=== PATIENT | female | born 1940 | race Caucasian/White ===

== ENCOUNTER 2016-08-27 22:45 | Observation (INO) | payer MEDICARE ==
[~2016-08-27] VITALS: Ht 175.3 cm; Wt 83.1 kg
[2016-08-27 23:06] LABS: HCO3 ABG 18 mmol/L (21-28); PCO2 ABG 34 mmHg (35-46); PH ABG 7.33 (7.35-7.45); PO2 ABG 71 mmHg (65-108); SAT O2 ABG 92 % (92-99)
[2016-08-27 23:08] LABS: FIO2 ABG 26
[2016-08-27] MEDS ORDERED: ONDANSETRON PF 4 MG/2 ML VIAL. ONE (23:23)
--- NOTE | 2016-08-27 23:30 | ED.ADGEN ---
Past Medical History Past Medical History: Diabetes-Type II, Hypertension, Other Additional Past Medical Histor: RA, ANEURYSM Past Surgical History: Hysterectomy, Other Additional Past Surgical Histo: "ANEURYSM SURGERY" Alcohol Use: None Drug Use: None Adult General Chief Complaint Chief Complaint: ALTERED MENTAL STATUS HPI HPI Patient is a 75 year old female who presents with simple episode at local [facility]. Reportedly, the patient has been gambling at slot machine for over 24 hours when the episode happened. Patient unresponsive with stable vital signs on EMS arrival. No seizure activity witnessed. Patient alert and oriented to person upon ED arrival with fluent, coherent and purposeful speech. Patient does not recall episode. Patient with 2diabetic with blood sugar greater than 260. Patient denies headache, neck pain, change in vision, chest pain, palpitations, shortness of breath, extremity weakness or any other medical symptoms preceding episode. No orolingual abrasion or urinary incontinence. Denies history of seizure disorder. History is limited by the patient's memory impairment. Review of Systems Review of Systems Review symptoms as per history of present illness. All other review of symptoms negative. Allergies Allergies Allergies Coded Allergies Type Severity Reaction Last Updated Verified cephalexin Allergy Unknown 08/27/16 Yes codeine Allergy Unknown 08/27/16 Yes Physical Exam Physical Exam Constitutional: Well developed, well nourished, no acute distress. On O2 by nasal cannula HENT: Normocephalic, atraumatic, bilateral external ears normal, oropharynx moist, no oral exudates, nose normal. Eyes: PERRL. Neck: Normal range of motion, supple. Cardiovascular:Heart rate regular rhythm. Lungs & Thorax: Bilateral breath sounds clear to auscultation. Abdomen: Bowel sounds normal, soft, no tenderness. Skin: Warm, dry. Back: No tenderness, no CVA tenderness. Neurologic: Alert and oriented X 1, normal motor function, normal sensory function, no focal deficits noted. Psychologic: Affect, flat. Current Patient Data Vital Signs Vital Signs Date Time Temp Pulse Resp B/P (MAP) Pulse Ox O2 Delivery O2 Flow Rate FiO2 08/27/16 23:04 98.0 114 20 196/96 (129) 93 Room Air 98.0 Lab Values Laboratory Tests Test 08/27/16 22:50 O2 Saturation 92 % (92-99) Arterial Blood pH 7.33 (7.35-7.45) L Arterial Blood pCO2 at Patient Temp 34 mmHg (35-46) L Arterial Blood pO2 at Patient Temp 71 mmHg (65-108) Arterial Blood HCO3 18 mmol/L (21-28) L Arterial Blood Base Excess -7 mmol/L (-3-3) L FiO2 26 EKG EKG [EKG: Sinus tach, rate 117, abnormal ST T-wave contour. No acute ST elevation. QTC 465.] Radiology/Procedures Radiology/Procedures [CT head: No acute intracranial process per radiology report Chest x-ray: No evidence for infiltrate ] Course & Med Decision Making Course & Med Decision Making Pertinent Labs and Imaging studies reviewed. (See chart for details) [Patient with return to baseline mental status shortly after ED arrival. Ate O 3 although does not recall episode. Patient with episode of vomiting shortly after ED arrival.] Dragon Disclaimer Dragon Disclaimer This electronic medical record was generated, in whole or in part, using a voice recognition dictation system. MARINA LONG DO Aug 27, 2016 23:30
[2016-08-27 23:38] LABS: BASO % 1 % (0-3); EOS % 2 % (0-3); HEMATOCRIT 40.4 % (36.0-47.0); HEMOGLOBIN 13.1 g/dL (12.0-15.5); LYMPH # 1.6 x10^3/uL (1.0-4.8); LYMPH % 19 % (24-48); MEAN CORPUSCULAR HEMOGLOBIN 32 pg (25-35); MEAN CORPUSCULAR HGB CONC 32 g/dL (31-37); MEAN CORPUSCULAR VOLUME 98 fL (79-100); MONO % 10 % (0-9); NEUT % 69 % (31-73); PLATELET COUNT 201 x10^3/uL (140-400); RED BLOOD COUNT 4.13 x10^6/uL (3.50-5.40); RED CELL DISTRIBUTION WIDTH 14.3 % (11.5-14.5); WHITE BLOOD COUNT 8.7 x10^3/uL (4.0-11.0)
--- NOTE | 2016-08-27 23:42 | RAD ---
CT head without intravenous contrast History: Witnessed seizure at the [facility]. Unresponsive at EMS arrival. Comparison: None. Technique: Axial images are obtained of the head from the skull base through the vertex without IV contrast. Exposure: One or more of the following individualized dose reduction techniques were utilized for this examination: 1. Automated exposure control 2. Adjustment of the mA and/or kV according to patient size 3. Use of iterative reconstruction technique Findings: The ventricles are appropriate in size, shape, and location for the patient's age. No obvious intracranial mass, mass-effect, midline shift, hemorrhage or obvious acute infarction is identified. Basilar cisterns are patent. Patchy bilateral white matter low-attenuation is seen which also extends into the superior aspect left lentiform nucleus. Bone windows demonstrate no acute calvarial abnormality. The visualized paranasal sinuses appear clear. Impression: 1. No acute intracranial process. Please note that CT can be relatively insensitive to acute ischemic infarction for up to 24 hours after symptom onset. 2. Nonspecific white matter changes, probably from chronic microvascular ischemic disease. Electronically signed by: Parag Rollins MD (08/27/2016 11:37 PM)
[2016-08-27 23:52] LABS: CALCIUM 8.9 mg/dL (8.5-10.1); CREATININE 1.2 mg/dL (0.6-1.0); GFR 43.9; POTASSIUM 3.6 mmol/L (3.5-5.1)
[2016-08-27] MEDS ORDERED: ONDANSETRON PF 4 MG/2 ML VIAL. IV ONE (23:55)
[2016-08-27 23:58] LABS: ALBUMIN 3.5 g/dL (3.4-5.0); ALBUMIN/GLOBULIN RATIO 0.9 (1.0-1.7); TOTAL BILIRUBIN 0.2 mg/dL (0.2-1.0); TOTAL PROTEIN 7.6 g/dL (6.4-8.2)
[2016-08-28 00:57] LABS: BILIRUBIN,URINE NEGATIVE (NEG); GLUCOSE,URINE >=1000 mg/dL (NEG); NITRITE,URINE NEGATIVE (NEG); PROTEIN,URINE >=300 mg/dL (NEG-TRACE); UROBILINOGEN,URINE 0.2 mg/dL (0.2 mg/dL)
[2016-08-28 01:09] LABS: BACTERIA,URINE MANY /HPF (0-FEW); RBC,URINE >40 /HPF (0-2); SQUAMOUS EPITHELIAL CELL,UR FEW /LPF; WBC,URINE TNTC /HPF (0-4)
[2016-08-28 01:14] LABS: BARBITURATES NEG (NEG); BENZODIAZEPINES NEG (NEG); CANNABINOIDS NEG (NEG); COCAINE NEG (NEG); METHADONE NEG (NEG); OPIATES NEG (NEG); PHENCYCLIDINE NEG (NEG)
--- NOTE | 2016-08-28 01:34 | ACF ---
Admission Forms Criteria SYNCOPE Clinical Indications for Admission to Inpatient Care ( Place 'X' for any and all applicable criteria): Admission is indicated for syncope and ANY ONE of the following (1)(2)(3)(4)(5) (6)(7) : [X]I. Inpatient admission required rather than observation care (Also use Syncope: Observation Care Criteria as appropriate) because of ANY ONE of the following: [ ]a) Hemodynamic instability that is severe or persistent [ ]b) Cardiac arrhythmias of immediate concern identified or strongly suspected (eg, needs electrophysiologic study) [ ]c) Acute coronary syndrome identified (Also use Myocardial Infarction or Angina Criteria form ) [ ]d) Structural cardiac disorder (eg, aortic stenosis) suspected as cause that requires immediate correction [ ]e) Respiratory symptoms (eg, dyspnea, tachypnea) that are severe or persistent [X]f) Neurologic signs or symptoms that are severe or persistent ( eg, stroke, seizures, altered mental status) [ ]g) Severe electrolyte abnormalities requiring inpatient care [ ]h) Supplemental oxygen or respiratory treatment for over 24 hrs that are performable only in acute inpatient setting [ ]i) IV fluid to replace significant ongoing (eg, for over 24 hrs ) losses (>3 L/m2 per day) [ ]j) Continuous intravenous infusion of anticoagulation, platelet inhibitor, vasoactive, or antiarrhythmic medication(15)(16) [ ]k) Pulmonary artery catheter monitoring [ ]l) Temporary pacemaker placement(17) [ ]m) Emergent cardioversion(18) [ ]n) Other conditions, treatment or monitoring requiring inpatient admission [ ]II. Suspicion of imminently dangerous cause (eg, rare causes like pericardial tamponade, pulmonary embolism) [ ]III. Syncope causing severe injury requiring hospitalization Extended stay beyond goal length of stay may be needed for(28) [ ]a) Dangerous arrhythmia(15)(23)(27)(29) [ ]b) Myocardial ischemia [ ]c) Seizure disorder [ ]d) Syncope-related injuries The original [employer] content created by [employer] has been revised. The portions of the content which have been revised are identified through the use of italic text or in bold, and [employer] has neither reviewed nor approved the modified material. All other unmodified content is copyright [employer]. Please see references footnoted in the original [facility] edition 2016 Admission Criteria Met?: Yes KAMILA MCDERMOTT Aug 28, 2016 01:34
[2016-08-28] MEDS ORDERED: MORPHINE SULFATE 2 MG/ML DISP.SYRIN. IV PRN ×2 (02:45→10:45)
[2016-08-28] MEDS ORDERED: ONDANSETRON PF 4 MG/2 ML VIAL. IV PRN ×2 (02:45→10:45)
[2016-08-28 03:50] VITALS: BP 180/89
[2016-08-28 07:00] VITALS: BP 137/59
--- NOTE | 2016-08-28 08:23 | RAD ---
Portable chest, 08/27/2016: History: Shortness of breath Comparison is made to a study from 01/22/2008. The patient is rotated to the right. The heart size and pulmonary vascularity are normal. There is calcific plaquing of the aorta. No pulmonary consolidation is seen. There is no evidence of pleural fluid or pneumothorax. The bony structures are demineralized. IMPRESSION: No acute cardiopulmonary abnormality is detected.
--- NOTE | 2016-08-28 08:41 | EKG ---
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
[2016-08-28] MEDS ORDERED: METF-620 PO (10:44)
[2016-08-28] MEDS ORDERED: AMLO5TAB2 PO (10:44)
[2016-08-28] MEDS ORDERED: HYDR25TA9 PO (10:44)
[2016-08-28] MEDS ORDERED: LISI40TA PO (10:44)
[2016-08-28] MEDS ORDERED: FLUO40CA2 PO (10:44)
[2016-08-28] MEDS ORDERED: FOLI1TAB16 PO (10:44)
[2016-08-28] MEDS ORDERED: OMEP40CA5 PO (10:44)
[2016-08-28] MEDS ORDERED: INSU100I13 SQ (10:44)
[2016-08-28] MEDS ORDERED: ALPR0.5T PO (10:44)
[2016-08-28] MEDS ORDERED: SIMV40TA3 PO (10:44)
[2016-08-28] MEDS ORDERED: VENL150C PO (10:44)
[2016-08-28] MEDS ORDERED: CLON0.5T PO (10:44)
[2016-08-28] MEDS ORDERED: DEXTROSE 50% 25 GM / 50ML DISP.SYRIN. IV PRN (10:45)
[2016-08-28] MEDS ORDERED: hydrALAZINE 20 MG/ML VIAL. IVP PRN (10:45)
[2016-08-28] MEDS ORDERED: DOCUSATE SODIUM 100 MG CAPSULE. PO PRN (10:45)
[2016-08-28] MEDS ORDERED: ACETAMINOPHEN 325 MG TABLET. PO PRN (10:45)
[2016-08-28] MEDS ORDERED: traMADol 50 MG TABLET PO PRN (10:45)
[2016-08-28 11:00] VITALS: BP 148/62
[2016-08-28] MEDS: LISINOPRIL 40 MG TABLET. PO SCH (12:06)
[2016-08-28] MEDS: PANTOPRAZOLE 40 MG TABLET.DR. PO SCH (12:06)
[2016-08-28] MEDS: FLUoxetine HCL 20 MG CAPSULE PO SCH (12:06)
[2016-08-28] MEDS: ALPRAZolam 0.5 MG TABLET PO PRN ×2 (12:07→21:50)
[2016-08-28] MEDS: amLODIPine BESYLATE 5 MG TABLET PO SCH (12:07)
[2016-08-28] MEDS: FOLIC ACID 1 MG TABLET. PO SCH (12:07)
[2016-08-28] MEDS: INSULIN ASPART 300 UNITS/3 ML INSULN.PEN SQ SCH ×2 (12:09→16:56)
--- NOTE | 2016-08-28 12:14 | RAD ---
Carotid ultrasound, 08/28/2016: History: Syncope Duplex evaluation of the carotid arteries in the neck was performed including grayscale, color-flow and spectral Doppler analysis. There are moderate scattered atherosclerotic plaques in both common carotid arteries and at the carotid bifurcations, right greater than left. The peak systolic velocity in the proximal right internal carotid artery is 142 cm/s with an end-diastolic velocity of 22 cm/s. The internal carotid to common carotid artery ratio is 2.2. The peak systolic velocity and this ratio suggests narrowing in the 50-70% diameter range, while the end-diastolic velocity measurement suggests a lesser degree of narrowing. On the left, the peak systolic velocity in the internal carotid artery is 121 cm/s. The end-diastolic velocity is 23 cm/s. The internal carotid to common carotid artery ratio is 1.2. These Doppler findings suggest narrowing in the 0-50% diameter range. Antegrade flow is present in both vertebral arteries in the neck. IMPRESSION: Moderate atherosclerotic plaquing at the carotid bifurcations, right greater than left with underlying luminal narrowing of the proximal right internal carotid artery in the 50-70% diameter range and narrowing of the left internal carotid artery in the 0-50% diameter range. Note: Stenosis calculations for CT, MRA and conventional angiography are based upon determination of the distal ICA diameter in accordance with the NASCET methodology. Stenosis calculations for Doppler studies are derived from validated velocity criteria which are known to correlate with NASCET methodology of determining stenosis.
--- NOTE | 2016-08-28 12:53 | PDOC1 ---
History and Physical Date of Admission Date of Admission 08/28/16 Identification/Chief Complaint Chief Complaint syncope, unresponsive Problems: Source Source: Chart review, Patient History of Present Illness History of Present Illness HPI HPI Patient is a 75 year old female who presents with syncope episode at local [facility]. Pt lives alone, said she was in casino sitting playing gambling, with headache x3-4 hours, denies dehydration, then she woke up in the hosp. She navin palpitation, dizzy, chest pain. sHE Dose not remember what really happened. She feels good now too. As per ERP, pt was at slot machine for >24hours, unresponsive with stable vital signs on EMS. No seizure activity witnessed. Patient alert and oriented to person upon ED arrival with fluent, coherent and purposeful speech. Patient with 2diabetic with blood sugar greater than 260. never had seizure or syncope before. Denies fever, chills, sob, chest pain, cough, N/V. She did vomit in ER. denies UTI symptom. Past Medical History Past Medical History Diabetes-Type II, Hypertension, Other Additional Past Medical Histor: RA, ANEURYSM Past Surgical History Past Surgical History Hysterectomy, Other Additional Past Surgical Histo: "ANEURYSM SURGERY" ? Family History Family History: Hypertension Social History Smoke: No ALCOHOL: none Drugs: None Current Problem List Problem List Problems Medical Problems: (1) Hyperglycemia Status: Acute Current Medications Current Medications Current Medications Medications (Trade) Dose Ordered Sig/Aman Start Time Stop Time Status Last Admin Dose Admin Acetaminophen (Tylenol) 650 mg PRN Q6HRS PRN 08/28/16 10:45 Alprazolam (Xanax) 0.5 mg PRN TID PRN 08/28/16 10:45 08/28/16 12:07 0.5 MG Amlodipine Besylate (Norvasc) 5 mg DAILY 08/28/16 11:00 08/28/16 12:07 5 MG Dextrose (Dextrose 50%-Water Syringe) 12.5 gm PRN Q15MIN PRN 08/28/16 10:45 Docusate Sodium (Colace) 100 mg PRN DAILY PRN 08/28/16 10:45 Fluoxetine HCl (PROzac) 40 mg DAILY 08/28/16 11:00 08/28/16 12:06 40 MG Folic Acid (Folic Acid) 2 mg DAILY 08/28/16 11:00 08/28/16 12:07 2 MG Hydralazine HCl (Apresoline) 10 mg PRN Q4HRS PRN 08/28/16 10:45 Insulin Aspart (NovoLOG) 0-9 UNITS TIDWMEALS 08/28/16 12:00 08/28/16 12:09 4 UNITS Insulin Detemir (Levemir) 65 units QHS 08/28/16 21:00 Levofloxacin/ Dextrose 150 ml @ 100 mls/hr 1X ONCE 08/28/16 01:30 08/28/16 02:59 DC 08/28/16 01:48 100 MLS/HR Lisinopril (Prinivil) 40 mg DAILY 08/28/16 11:00 08/28/16 12:06 40 MG Metformin HCl (Glucophage) 1,000 mg BIDWMEALS 08/28/16 17:00 Morphine Sulfate 2 mg PRN Q2HR PRN 08/28/16 10:45 08/28/16 10:45 DC Ondansetron HCl (Zofran) 4 mg PRN Q6HRS PRN 08/28/16 10:45 Pantoprazole Sodium (Protonix) 40 mg DAILYAC 08/28/16 11:00 08/28/16 12:06 40 MG Simvastatin (Zocor) 40 mg QHS 08/28/16 21:00 Tramadol HCl (Ultram) 50 mg PRN Q6HRS PRN 08/28/16 10:45 Venlafaxine HCl (Effexor) 50 mg TID 08/28/16 14:00 Allergies Allergies Allergies Coded Allergies Type Severity Reaction Last Updated Verified cephalexin Allergy Unknown 08/27/16 Yes codeine Allergy Unknown 08/27/16 Yes ROS Review of System CONSTITUTIONAL: No fever or chills EYES: No recent changes SKIN: No rash or itching CARDIOVASCULAR: No chest pain, syncope, palpitations, or edema RESPIRATORY: No SOB or cough GASTROINTESTINAL: No nausea, vomiting or abdominal pain NEUROLOGICAL: No headaches or weakness ENDOCRINE: No cold or heat intolerance GENITOURINARY: No urgency or frequency of urination MUSCULOSKELETAL: No back pain or joint pain LYMPHATICS: No enlarged lymph nodes PSYCHIATRIC: No anxiety or depression Physical Exam Physical Exam GEN.: No apparent distress. Alert and oriented. HEENT: Head is normocephalic, atraumatic NECK: Supple. LUNGS: Clear to auscultation. HEART: RRR, S1, S2 present. Peripheral pulses intact ABDOMEN: Soft, nontender. Positive bowel sounds. EXTREMITIES: Without any cyanosis. NEUROLOGIC: Normal speech, normal tone PSYCHIATRIC: Normal affect, normal mood. SKIN: No ulcerations Vitals Vitals Vital Signs Date Time Temp Pulse Resp B/P (MAP) Pulse Ox O2 Delivery O2 Flow Rate FiO2 08/28/16 12:07 99 165/81 08/28/16 11:00 97.9 20 97 Nasal Cannula 2.0 97.9 Labs Labs Laboratory Tests Test 08/27/16 22:50 08/27/16 23:25 08/27/16 23:26 08/27/16 23:31 O2 Saturation 92 % (92-99) Arterial Blood pH 7.33 (7.35-7.45) Arterial Blood pCO2 at Patient Temp 34 mmHg (35-46) Arterial Blood pO2 at Patient Temp 71 mmHg (65-108) Arterial Blood HCO3 18 mmol/L (21-28) Arterial Blood Base Excess -7 mmol/L (-3-3) FiO2 26 White Blood Count 8.7 x10^3/uL (4.0-11.0) Red Blood Count 4.13 x10^6/uL (3.50-5.40) Hemoglobin 13.1 g/dL (12.0-15.5) Hematocrit 40.4 % (36.0-47.0) Mean Corpuscular Volume 98 fL (79-100) Mean Corpuscular Hemoglobin 32 pg (25-35) Mean Corpuscular Hemoglobin Concent 32 g/dL (31-37) Red Cell Distribution Width 14.3 % (11.5-14.5) Platelet Count 201 x10^3/uL (140-400) Neutrophils (%) (Auto) 69 % (31-73) Lymphocytes (%) (Auto) 19 % (24-48) Monocytes (%) (Auto) 10 % (0-9) Eosinophils (%) (Auto) 2 % (0-3) Basophils (%) (Auto) 1 % (0-3) Neutrophils # (Auto) 6.0 x10^3uL (1.8-7.7) Lymphocytes # (Auto) 1.6 x10^3/uL (1.0-4.8) Monocytes # (Auto) 0.9 x10^3/uL (0.0-1.1) Eosinophils # (Auto) 0.2 x10^3/uL (0.0-0.7) Basophils # (Auto) 0.0 x10^3/uL (0.0-0.2) Sodium Level 143 mmol/L (136-145) Potassium Level 3.6 mmol/L (3.5-5.1) Chloride Level 104 mmol/L (98-107) Carbon Dioxide Level 22 mmol/L (21-32) Anion Gap 17 (6-14) Blood Urea Nitrogen 19 mg/dL (7-20) Creatinine 1.2 mg/dL (0.6-1.0) Estimated GFR (Cockcroft-Gault) 43.9 BUN/Creatinine Ratio 16 (6-20) Glucose Level 281 mg/dL (70-99) Calcium Level 8.9 mg/dL (8.5-10.1) Total Bilirubin 0.2 mg/dL (0.2-1.0) Aspartate Amino Transf (AST/SGOT) 22 U/L (15-37) Alanine Aminotransferase (ALT/SGPT) 28 U/L (14-59) Alkaline Phosphatase 106 U/L (46-116) Total Protein 7.6 g/dL (6.4-8.2) Albumin 3.5 g/dL (3.4-5.0) Albumin/Globulin Ratio 0.9 (1.0-1.7) Ethyl Alcohol Level < 10 mg/dL (0-10) Glucose (Fingerstick) 256 mg/dL (70-99) Bedside Troponin I 0.04 ng/ml (<0.08) Test 08/28/16 00:40 08/28/16 07:10 08/28/16 09:55 Urine Collection Type U cath Urine Color Yellow Urine Clarity Cloudy Urine pH 6.0 Urine Specific Foss >=1.030 Urine Protein >=300 mg/dL (NEG-TRACE) Urine Glucose (UA) >=1000 mg/dL (NEG) Urine Ketones (Stick) Negative mg/dL (NEG) Urine Blood Moderate (NEG) Urine Nitrite Negative (NEG) Urine Bilirubin Negative (NEG) Urine Urobilinogen Dipstick 0.2 mg/dL (0.2 mg/dL) Urine Leukocyte Esterase Moderate (NEG) Urine RBC >40 /HPF (0-2) Urine WBC Tntc /HPF (0-4) Urine Squamous Epithelial Cells Few /LPF Urine Bacteria Many /HPF (0-FEW) Urine Hyaline Casts Few /HPF Urine Opiates Screen Neg (NEG) Urine Methadone Screen Neg (NEG) Urine Barbiturates Neg (NEG) Urine Phencyclidine Screen Neg (NEG) Urine Amphetamine/Methamphetamine Neg (NEG) Urine Benzodiazepines Screen Neg (NEG) Urine Cocaine Screen Neg (NEG) Urine Cannabinoids Screen Neg (NEG) Urine Ethyl Alcohol Neg (NEG) Glucose (Fingerstick) 239 mg/dL (70-99) 156 mg/dL (70-99) Laboratory Tests Test 08/27/16 22:50 08/27/16 23:25 08/27/16 23:26 08/27/16 23:31 O2 Saturation 92 % (92-99) Arterial Blood pH 7.33 (7.35-7.45) Arterial Blood pCO2 at Patient Temp 34 mmHg (35-46) Arterial Blood pO2 at Patient Temp 71 mmHg (65-108) Arterial Blood HCO3 18 mmol/L (21-28) Arterial Blood Base Excess -7 mmol/L (-3-3) FiO2 26 White Blood Count 8.7 x10^3/uL (4.0-11.0) Red Blood Count 4.13 x10^6/uL (3.50-5.40) Hemoglobin 13.1 g/dL (12.0-15.5) Hematocrit 40.4 % (36.0-47.0) Mean Corpuscular Volume 98 fL (79-100) Mean Corpuscular Hemoglobin 32 pg (25-35) Mean Corpuscular Hemoglobin Concent 32 g/dL (31-37) Red Cell Distribution Width 14.3 % (11.5-14.5) Platelet Count 201 x10^3/uL (140-400) Neutrophils (%) (Auto) 69 % (31-73) Lymphocytes (%) (Auto) 19 % (24-48) Monocytes (%) (Auto) 10 % (0-9) Eosinophils (%) (Auto) 2 % (0-3) Basophils (%) (Auto) 1 % (0-3) Neutrophils # (Auto) 6.0 x10^3uL (1.8-7.7) Lymphocytes # (Auto) 1.6 x10^3/uL (1.0-4.8) Monocytes # (Auto) 0.9 x10^3/uL (0.0-1.1) Eosinophils # (Auto) 0.2 x10^3/uL (0.0-0.7) Basophils # (Auto) 0.0 x10^3/uL (0.0-0.2) Sodium Level 143 mmol/L (136-145) Potassium Level 3.6 mmol/L (3.5-5.1) Chloride Level 104 mmol/L (98-107) Carbon Dioxide Level 22 mmol/L (21-32) Anion Gap 17 (6-14) Blood Urea Nitrogen 19 mg/dL (7-20) Creatinine 1.2 mg/dL (0.6-1.0) Estimated GFR (Cockcroft-Gault) 43.9 BUN/Creatinine Ratio 16 (6-20) Glucose Level 281 mg/dL (70-99) Calcium Level 8.9 mg/dL (8.5-10.1) Total Bilirubin 0.2 mg/dL (0.2-1.0) Aspartate Amino Transf (AST/SGOT) 22 U/L (15-37) Alanine Aminotransferase (ALT/SGPT) 28 U/L (14-59) Alkaline Phosphatase 106 U/L (46-116) Total Protein 7.6 g/dL (6.4-8.2) Albumin 3.5 g/dL (3.4-5.0) Albumin/Globulin Ratio 0.9 (1.0-1.7) Ethyl Alcohol Level < 10 mg/dL (0-10) Glucose (Fingerstick) 256 mg/dL (70-99) Bedside Troponin I 0.04 ng/ml (<0.08) Test 08/28/16 00:40 08/28/16 07:10 08/28/16 09:55 Urine Collection Type U cath Urine Color Yellow Urine Clarity Cloudy Urine pH 6.0 Urine Specific Foss >=1.030 Urine Protein >=300 mg/dL (NEG-TRACE) Urine Glucose (UA) >=1000 mg/dL (NEG) Urine Ketones (Stick) Negative mg/dL (NEG) Urine Blood Moderate (NEG) Urine Nitrite Negative (NEG) Urine Bilirubin Negative (NEG) Urine Urobilinogen Dipstick 0.2 mg/dL (0.2 mg/dL) Urine Leukocyte Esterase Moderate (NEG) Urine RBC >40 /HPF (0-2) Urine WBC Tntc /HPF (0-4) Urine Squamous Epithelial Cells Few /LPF Urine Bacteria Many /HPF (0-FEW) Urine Hyaline Casts Few /HPF Urine Opiates Screen Neg (NEG) Urine Methadone Screen Neg (NEG) Urine Barbiturates Neg (NEG) Urine Phencyclidine Screen Neg (NEG) Urine Amphetamine/Methamphetamine Neg (NEG) Urine Benzodiazepines Screen Neg (NEG) Urine Cocaine Screen Neg (NEG) Urine Cannabinoids Screen Neg (NEG) Urine Ethyl Alcohol Neg (NEG) Glucose (Fingerstick) 239 mg/dL (70-99) 156 mg/dL (70-99) VTE Prophylaxis Ordered VTE Prophylaxis Devices: Yes VTE Pharmacological Prophylaxi: Yes Assessment/Plan Assessment/Plan 1. syncope, vasovagal? 2. htn urgency 3. dm2 on lantus 65u qhs 4. CKD 3 plan: neuro consult carotid US check orthostatic hypotension cont home meds, levemir 60u qhs, ssi, hold hctz labs tmr dvt ppx PTOT ARISTEO PACHECO MD Aug 28, 2016 12:53
[2016-08-28] MEDS: VENLAFAXINE 50 MG TABLET. PO SCH ×2 (13:03→21:49)
--- NOTE | 2016-08-28 14:09 | PDOC2 ---
NEUROLOGY CONSULT Date of Admission Date of Admission DATE: 08/28/16 TIME: 14:01 Reason for Consult Reason for Consult: Syncope Referring Physician Referring Physician: Dr. Torre Source Source: Chart review, Patient History of Present Illness History of Present Illness The patient is a 75-year-old right-handed female who spent nearly 24 hours at a slot [place] a casino. She took a few breaks for eating and fluid, but no sleep. She fell out of her chair. She does not know if she hit her head. There are no details of any type of convulsive activity, tongue biting, or incontinence, but she denies such. There is no prior history of syncope, stroke , or seizure. She does have a headache now. She denies any other problems. Past Medical History Cardiovascular: HTN Pulmonary: Bronchitis, Pneumonia GI: GERD, Other (Murray's esophagus) Rheumatologic: Rheumatoid arthritis Renal/: UTI Endocrine: Diabetes Past Surgical History Past Surgical History: Appendectomy, Cholecystectomy, Cataract Removal, Tonsillectomy, Hysterectomy, Other (joint surgeries) Family History Family History: Cancer Social History Social History Single, quit smoking 5 years ago, no alcohol, retired Current Medications Current Medications Current Medications Ondansetron HCl (Zofran) 4 mg STK-MED ONCE .ROUTE ; Start 08/27/16 at 23:23; Stop 08/27/16 at 23:24; Status DC Ondansetron HCl (Zofran) 4 mg 1X ONCE IV Last administered on 08/27/16t 23:26 ; Start 08/27/16 at 23:55; Stop 08/27/16 at 23:57; Status DC Levofloxacin/ Dextrose 150 ml @ 100 mls/hr 1X ONCE IV Last administered on t 01:48; Start 08/28/16 at 01:30; Stop 08/28/16 at 02:59; Status DC Ondansetron HCl (Zofran) 4 mg PRN Q8HRS PRN IV NAUSEA/VOMITING; Start 08/28/16 at 02:45; Stop 08/29/16 at 02:44 Morphine Sulfate 2 mg PRN Q2HR PRN IV PAIN; Start 08/28/16 at 02:45; Stop at 02:44 Acetaminophen (Tylenol) 650 mg PRN Q6HRS PRN PO FEVER; Start 08/28/16 at 10:45 Ondansetron HCl (Zofran) 4 mg PRN Q6HRS PRN IV NAUSEA/VOMITING 1st choice; Start 08/28/16 at 10:45 Morphine Sulfate 2 mg PRN Q2HR PRN IV PAIN; Start 08/28/16 at 10:45; Stop at 10:45; Status DC Tramadol HCl (Ultram) 50 mg PRN Q6HRS PRN PO PAIN MILD; Start 08/28/16 at 10:45 Hydralazine HCl (Apresoline) 10 mg PRN Q4HRS PRN IVP ELEVATED BP, SEE COMMENTS ; Start 08/28/16 at 10:45 Docusate Sodium (Colace) 100 mg PRN DAILY PRN PO CONSTIPATION; Start 08/28/16 at 10:45 Insulin Aspart (NovoLOG) 0-9 UNITS TIDWMEALS SQ Last administered on 08/28/16 12:09; Start 08/28/16 at 12:00 Dextrose (Dextrose 50%-Water Syringe) 12.5 gm PRN Q15MIN PRN IV SEE COMMENTS; Start 08/28/16 at 10:45 Alprazolam (Xanax) 0.5 mg PRN TID PRN PO ANXIETY / AGITATION Last administered on 08/28/16 12:07; Start 08/28/16 at 10:45 Amlodipine Besylate (Norvasc) 5 mg DAILY PO Last administered on 08/28/16 12:07 ; Start 08/28/16 at 11:00 Folic Acid (Folic Acid) 2 mg DAILY PO Last administered on 08/28/16 12:07; Start 08/28/16 at 11:00 Lisinopril (Prinivil) 40 mg DAILY PO Last administered on 08/28/16 12:06; Start 08/28/16 at 11:00 Metformin HCl (Glucophage) 1,000 mg BIDWMEALS PO ; Start 08/28/16 at 17:00 Simvastatin (Zocor) 40 mg QHS PO ; Start 08/28/16 at 21:00 Fluoxetine HCl (PROzac) 40 mg DAILY PO Last administered on 08/28/16 12:06; Start 08/28/16 at 11:00 Insulin Detemir (Levemir) 65 units QHS SQ ; Start 08/28/16 at 21:00; Stop at 21:00; Status DC Pantoprazole Sodium (Protonix) 40 mg DAILYAC PO Last administered on 08/28/16t 12:06; Start 08/28/16 at 11:00 Venlafaxine HCl (Effexor) 50 mg TID PO ; Start 08/28/16 at 14:00 Insulin Detemir (Levemir) 60 units QHS SQ ; Start 08/28/16 at 21:00 Enoxaparin Sodium (Lovenox 40mg Syringe) 40 mg DAILY16 SQ ; Start 08/28/16 at 16: 00 Active Scripts Active Reported Folic Acid 1 Mg Tablet 2 Tab PO DAILY Lisinopril 40 Mg Tablet 1 Tab PO DAILY Amlodipine Besylate 5 Mg Tablet 5 Mg PO DAILY Hydrochlorothiazide Tablet (Hydrochlorothiazide) 25 Mg Tablet 1 Tab PO DAILY Simvastatin 40 Mg Tablet 1 Tab PO QHS Omeprazole 40 Mg Capsule.dr 1 Cap PO DAILY Metformin Hcl 1,000 Mg Tablet 1,000 Mg PO BIDWMEALS Xanax (Alprazolam) 0.5 Mg Tablet 1 Tab PO PRN TID PRN Klonopin (Clonazepam) 0.5 Mg Tablet 1 Tab PO QHS Fluoxetine Hcl 40 Mg Capsule 1 Cap PO DAILY Lantus Solostar (Insulin Glargine,Hum.rec.anlog) 100 Unit/1 Ml Insuln.pen 65 Unit SQ QHS Effexor Xr (Venlafaxine Hcl) 150 Mg Cap.er.24h 1 Cap PO DAILY Allergies Allergies: Coded Allergies: cephalexin (Verified Allergy, Unknown, 08/27/16) codeine (Verified Allergy, Unknown, 08/27/16) ROS Review of System Patient denies fevers, chills, weight loss, dyspnea, angina, abdominal pain, change in bowels, or dysuria. 14 point review of systems is negative. Physical Exam Physical Examination PHYSICAL EXAMINATION: Vital signs: see above. General appearance is normal and in no acute distress. HEENT: Normocephalic and nontraumatic. Eyes, nose, ears, and throat are unremarkable. Neck is supple. No lymphadenopathy. No bruits are heard over the carotid artery. No crepitus. Extremities: Deformities consistent with rheumatoid arthritis history NEUROLOGICAL EXAMINATION: Mental Status Examination: Alert. Oriented to time, place, and person. Answers questions and follows commends. Pupils are equal round and reactive to light and accommodation. Funduscopic exam: No papilledema. Extraocular movements are intact. Visual field exam shows no defect on the direct confrontation. No motor or sensory deficits on the facial exam. Uvula in the midline and the soft palate elevated symmetrically. No deviation of the tongue to any direction. Gross hearing is normal. Shoulder shrug normal. Muscle tone is normal. Muscle strength is 5. Deep tendon reflexes are 2+ all around. Plantar reflex is with flexion response bilaterally. [id number]-ta-[id number] test performance is accurate. Alternative movements are accurate. Gait arthritic, she does well with her cane. Sensory exam shows stocking loss. No cerebellar signs are elicited. Vitals VITALS Vital Signs Date Time Temp Pulse Resp B/P (MAP) Pulse Ox O2 Delivery O2 Flow Rate FiO2 08/28/16 12:07 99 165/81 08/28/16 11:00 97.9 20 97 Nasal Cannula 2.0 97.9 Labs Labs Laboratory Tests Test 08/27/16 22:50 08/27/16 23:25 08/27/16 23:26 08/27/16 23:31 O2 Saturation 92 % (92-99) Arterial Blood pH 7.33 (7.35-7.45) Arterial Blood pCO2 at Patient Temp 34 mmHg (35-46) Arterial Blood pO2 at Patient Temp 71 mmHg (65-108) Arterial Blood HCO3 18 mmol/L (21-28) Arterial Blood Base Excess -7 mmol/L (-3-3) FiO2 26 White Blood Count 8.7 x10^3/uL (4.0-11.0) Red Blood Count 4.13 x10^6/uL (3.50-5.40) Hemoglobin 13.1 g/dL (12.0-15.5) Hematocrit 40.4 % (36.0-47.0) Mean Corpuscular Volume 98 fL (79-100) Mean Corpuscular Hemoglobin 32 pg (25-35) Mean Corpuscular Hemoglobin Concent 32 g/dL (31-37) Red Cell Distribution Width 14.3 % (11.5-14.5) Platelet Count 201 x10^3/uL (140-400) Neutrophils (%) (Auto) 69 % (31-73) Lymphocytes (%) (Auto) 19 % (24-48) Monocytes (%) (Auto) 10 % (0-9) Eosinophils (%) (Auto) 2 % (0-3) Basophils (%) (Auto) 1 % (0-3) Neutrophils # (Auto) 6.0 x10^3uL (1.8-7.7) Lymphocytes # (Auto) 1.6 x10^3/uL (1.0-4.8) Monocytes # (Auto) 0.9 x10^3/uL (0.0-1.1) Eosinophils # (Auto) 0.2 x10^3/uL (0.0-0.7) Basophils # (Auto) 0.0 x10^3/uL (0.0-0.2) Sodium Level 143 mmol/L (136-145) Potassium Level 3.6 mmol/L (3.5-5.1) Chloride Level 104 mmol/L (98-107) Carbon Dioxide Level 22 mmol/L (21-32) Anion Gap 17 (6-14) Blood Urea Nitrogen 19 mg/dL (7-20) Creatinine 1.2 mg/dL (0.6-1.0) Estimated GFR (Cockcroft-Gault) 43.9 BUN/Creatinine Ratio 16 (6-20) Glucose Level 281 mg/dL (70-99) Calcium Level 8.9 mg/dL (8.5-10.1) Total Bilirubin 0.2 mg/dL (0.2-1.0) Aspartate Amino Transf (AST/SGOT) 22 U/L (15-37) Alanine Aminotransferase (ALT/SGPT) 28 U/L (14-59) Alkaline Phosphatase 106 U/L (46-116) Total Protein 7.6 g/dL (6.4-8.2) Albumin 3.5 g/dL (3.4-5.0) Albumin/Globulin Ratio 0.9 (1.0-1.7) Ethyl Alcohol Level < 10 mg/dL (0-10) Glucose (Fingerstick) 256 mg/dL (70-99) Bedside Troponin I 0.04 ng/ml (<0.08) Test 08/28/16 00:40 08/28/16 07:10 08/28/16 09:55 Urine Collection Type U cath Urine Color Yellow Urine Clarity Cloudy Urine pH 6.0 Urine Specific Epes >=1.030 Urine Protein >=300 mg/dL (NEG-TRACE) Urine Glucose (UA) >=1000 mg/dL (NEG) Urine Ketones (Stick) Negative mg/dL (NEG) Urine Blood Moderate (NEG) Urine Nitrite Negative (NEG) Urine Bilirubin Negative (NEG) Urine Urobilinogen Dipstick 0.2 mg/dL (0.2 mg/dL) Urine Leukocyte Esterase Moderate (NEG) Urine RBC >40 /HPF (0-2) Urine WBC Tntc /HPF (0-4) Urine Squamous Epithelial Cells Few /LPF Urine Bacteria Many /HPF (0-FEW) Urine Hyaline Casts Few /HPF Urine Opiates Screen Neg (NEG) Urine Methadone Screen Neg (NEG) Urine Barbiturates Neg (NEG) Urine Phencyclidine Screen Neg (NEG) Urine Amphetamine/Methamphetamine Neg (NEG) Urine Benzodiazepines Screen Neg (NEG) Urine Cocaine Screen Neg (NEG) Urine Cannabinoids Screen Neg (NEG) Urine Ethyl Alcohol Neg (NEG) Glucose (Fingerstick) 239 mg/dL (70-99) 156 mg/dL (70-99) Laboratory Tests Test 08/27/16 22:50 08/27/16 23:25 08/27/16 23:26 08/27/16 23:31 O2 Saturation 92 % (92-99) Arterial Blood pH 7.33 (7.35-7.45) Arterial Blood pCO2 at Patient Temp 34 mmHg (35-46) Arterial Blood pO2 at Patient Temp 71 mmHg (65-108) Arterial Blood HCO3 18 mmol/L (21-28) Arterial Blood Base Excess -7 mmol/L (-3-3) FiO2 26 White Blood Count 8.7 x10^3/uL (4.0-11.0) Red Blood Count 4.13 x10^6/uL (3.50-5.40) Hemoglobin 13.1 g/dL (12.0-15.5) Hematocrit 40.4 % (36.0-47.0) Mean Corpuscular Volume 98 fL (79-100) Mean Corpuscular Hemoglobin 32 pg (25-35) Mean Corpuscular Hemoglobin Concent 32 g/dL (31-37) Red Cell Distribution Width 14.3 % (11.5-14.5) Platelet Count 201 x10^3/uL (140-400) Neutrophils (%) (Auto) 69 % (31-73) Lymphocytes (%) (Auto) 19 % (24-48) Monocytes (%) (Auto) 10 % (0-9) Eosinophils (%) (Auto) 2 % (0-3) Basophils (%) (Auto) 1 % (0-3) Neutrophils # (Auto) 6.0 x10^3uL (1.8-7.7) Lymphocytes # (Auto) 1.6 x10^3/uL (1.0-4.8) Monocytes # (Auto) 0.9 x10^3/uL (0.0-1.1) Eosinophils # (Auto) 0.2 x10^3/uL (0.0-0.7) Basophils # (Auto) 0.0 x10^3/uL (0.0-0.2) Sodium Level 143 mmol/L (136-145) Potassium Level 3.6 mmol/L (3.5-5.1) Chloride Level 104 mmol/L (98-107) Carbon Dioxide Level 22 mmol/L (21-32) Anion Gap 17 (6-14) Blood Urea Nitrogen 19 mg/dL (7-20) Creatinine 1.2 mg/dL (0.6-1.0) Estimated GFR (Cockcroft-Gault) 43.9 BUN/Creatinine Ratio 16 (6-20) Glucose Level 281 mg/dL (70-99) Calcium Level 8.9 mg/dL (8.5-10.1) Total Bilirubin 0.2 mg/dL (0.2-1.0) Aspartate Amino Transf (AST/SGOT) 22 U/L (15-37) Alanine Aminotransferase (ALT/SGPT) 28 U/L (14-59) Alkaline Phosphatase 106 U/L (46-116) Total Protein 7.6 g/dL (6.4-8.2) Albumin 3.5 g/dL (3.4-5.0) Albumin/Globulin Ratio 0.9 (1.0-1.7) Ethyl Alcohol Level < 10 mg/dL (0-10) Glucose (Fingerstick) 256 mg/dL (70-99) Bedside Troponin I 0.04 ng/ml (<0.08) Test 08/28/16 00:40 08/28/16 07:10 08/28/16 09:55 Urine Collection Type U cath Urine Color Yellow Urine Clarity Cloudy Urine pH 6.0 Urine Specific Epes >=1.030 Urine Protein >=300 mg/dL (NEG-TRACE) Urine Glucose (UA) >=1000 mg/dL (NEG) Urine Ketones (Stick) Negative mg/dL (NEG) Urine Blood Moderate (NEG) Urine Nitrite Negative (NEG) Urine Bilirubin Negative (NEG) Urine Urobilinogen Dipstick 0.2 mg/dL (0.2 mg/dL) Urine Leukocyte Esterase Moderate (NEG) Urine RBC >40 /HPF (0-2) Urine WBC Tntc /HPF (0-4) Urine Squamous Epithelial Cells Few /LPF Urine Bacteria Many /HPF (0-FEW) Urine Hyaline Casts Few /HPF Urine Opiates Screen Neg (NEG) Urine Methadone Screen Neg (NEG) Urine Barbiturates Neg (NEG) Urine Phencyclidine Screen Neg (NEG) Urine Amphetamine/Methamphetamine Neg (NEG) Urine Benzodiazepines Screen Neg (NEG) Urine Cocaine Screen Neg (NEG) Urine Cannabinoids Screen Neg (NEG) Urine Ethyl Alcohol Neg (NEG) Glucose (Fingerstick) 239 mg/dL (70-99) 156 mg/dL (70-99) Images Images CT head: Comparison is made to a study from 01/22/2008. The patient is rotated to the right. The heart size and pulmonary vascularity are normal. There is calcific plaquing of the aorta. No pulmonary consolidation is seen. There is no evidence of pleural fluid or pneumothorax. The bony structures are demineralized. IMPRESSION: No acute cardiopulmonary abnormality is detected. Carotids: IMPRESSION: Moderate atherosclerotic plaquing at the carotid bifurcations, right greater than left with underlying luminal narrowing of the proximal right internal carotid artery in the 50-70% diameter range and narrowing of the left internal carotid artery in the 0-50% diameter range. Assessment/Plan Assessment/Plan Impression: Collapse after 24 hours of nearly continuous casino activity. I do not see a need to invoke any type of medical conditions such as syncope, heart disease, carotid disease, cerebrovascular disease, or seizure. Recommendations: No neurology testing required. Neurology signs off. Thank you for letting me help with the patient's care. MACY KNOX MD Aug 28, 2016 14:09
[2016-08-28 15:00] VITALS: BP 131/62
[2016-08-28] MEDS: ENOXAPARIN 40 MG/0.4 ML SYRINGE. SQ SCH (16:49)
[2016-08-28 19:00] VITALS: BP 112/57
[2016-08-28] MEDS ORDERED: INSULIN DETEMIR 300 UNITS/3 ML INSULN.PEN. SQ SCH ×2 (21:00)
[2016-08-28] MEDS: SIMVASTATIN 40 MG TABLET. PO SCH (21:49)
[2016-08-28 23:00] VITALS: BP 132/74
[2016-08-29] VITALS (8 sets, daily range): BP systolic 133–165; BP diastolic 62–87
[2016-08-29 06:18] LABS: BASO % 1 % (0-3); EOS % 5 % (0-3); HEMATOCRIT 36.8 % (36.0-47.0); HEMOGLOBIN 12.5 g/dL (12.0-15.5); LYMPH # 2.1 x10^3/uL (1.0-4.8); LYMPH % 36 % (24-48); MEAN CORPUSCULAR HEMOGLOBIN 33 pg (25-35); MEAN CORPUSCULAR HGB CONC 34 g/dL (31-37); MEAN CORPUSCULAR VOLUME 96 fL (79-100); MONO % 12 % (0-9); NEUT % 47 % (31-73); PLATELET COUNT 180 x10^3/uL (140-400); RED BLOOD COUNT 3.83 x10^6/uL (3.50-5.40); RED CELL DISTRIBUTION WIDTH 14.3 % (11.5-14.5); WHITE BLOOD COUNT 5.9 x10^3/uL (4.0-11.0)
[2016-08-29 06:45] LABS: CALCIUM 8.9 mg/dL (8.5-10.1); CREATININE 0.9 mg/dL (0.6-1.0); GFR 61.2; POTASSIUM 3.7 mmol/L (3.5-5.1)
[2016-08-29] MEDS: INSULIN ASPART 300 UNITS/3 ML INSULN.PEN SQ SCH ×3 (08:00→17:00)
[2016-08-29] MEDS: FLUoxetine HCL 20 MG CAPSULE PO SCH (09:15)
[2016-08-29] MEDS: LISINOPRIL 40 MG TABLET. PO SCH (09:16)
[2016-08-29] MEDS: PANTOPRAZOLE 40 MG TABLET.DR. PO SCH (09:16)
[2016-08-29] MEDS: VENLAFAXINE 50 MG TABLET. PO SCH ×3 (09:16→21:16)
[2016-08-29] MEDS: amLODIPine BESYLATE 5 MG TABLET PO SCH (09:16)
[2016-08-29] MEDS: FOLIC ACID 1 MG TABLET. PO SCH (09:16)
--- NOTE | 2016-08-29 13:13 | PDOC ---
PROGRESS NOTES Chief Complaint Chief Complaint 1. syncope, too tired after >24hours in [place]? vs. orthostatic hypotension 2. htn urgency 3. dm2 on lantus 65u qhs 4. CKD 3 5. unsteady gait plan: neuro consulted, no intervention carotid US neg check orthostatic hypotension, positive cont home meds, decrease to levemir 50u qhs, ssi, hold hctz labs tmr dvt ppx PTOT 1/2 NS x1 L DC TMR History of Present Illness History of Present Illness + orthostatic hypotension pt was found mild confused yesterday afternoon, not feels very good today unsteady gait low glucose in am Vitals Vitals Vital Signs Date Time Temp Pulse Resp B/P (MAP) Pulse Ox O2 Delivery O2 Flow Rate FiO2 08/29/16 09:50 79 137/62 (87) 94 Nasal Cannula 2.0 08/29/16 07:00 97.9 16 97.9 Physical Exam General: Alert, Oriented X3, Cooperative Heart: Regular rate, Normal S1, Normal S2 Lungs: Clear Abdomen: Normal bowel sounds, Soft Extremities: No clubbing Labs LABS Laboratory Tests Test 08/28/16 16:24 08/28/16 21:15 08/29/16 05:10 08/29/16 07:06 Glucose (Fingerstick) 166 mg/dL (70-99) 179 mg/dL (70-99) 51 mg/dL (70-99) White Blood Count 5.9 x10^3/uL (4.0-11.0) Red Blood Count 3.83 x10^6/uL (3.50-5.40) Hemoglobin 12.5 g/dL (12.0-15.5) Hematocrit 36.8 % (36.0-47.0) Mean Corpuscular Volume 96 fL (79-100) Mean Corpuscular Hemoglobin 33 pg (25-35) Mean Corpuscular Hemoglobin Concent 34 g/dL (31-37) Red Cell Distribution Width 14.3 % (11.5-14.5) Platelet Count 180 x10^3/uL (140-400) Neutrophils (%) (Auto) 47 % (31-73) Lymphocytes (%) (Auto) 36 % (24-48) Monocytes (%) (Auto) 12 % (0-9) Eosinophils (%) (Auto) 5 % (0-3) Basophils (%) (Auto) 1 % (0-3) Neutrophils # (Auto) 2.8 x10^3uL (1.8-7.7) Lymphocytes # (Auto) 2.1 x10^3/uL (1.0-4.8) Monocytes # (Auto) 0.7 x10^3/uL (0.0-1.1) Eosinophils # (Auto) 0.3 x10^3/uL (0.0-0.7) Basophils # (Auto) 0.0 x10^3/uL (0.0-0.2) Sodium Level 147 mmol/L (136-145) Potassium Level 3.7 mmol/L (3.5-5.1) Chloride Level 109 mmol/L (98-107) Carbon Dioxide Level 33 mmol/L (21-32) Anion Gap 5 (6-14) Blood Urea Nitrogen 12 mg/dL (7-20) Creatinine 0.9 mg/dL (0.6-1.0) Estimated GFR (Cockcroft-Gault) 61.2 Glucose Level 49 mg/dL (70-99) Calcium Level 8.9 mg/dL (8.5-10.1) Test 08/29/16 07:31 08/29/16 07:57 08/29/16 11:33 Glucose (Fingerstick) 95 mg/dL (70-99) 168 mg/dL (70-99) 202 mg/dL (70-99) Review of Systems Review of Systems no fever, chills, sob or chest pain Assessment and Plan Assessmemt and Plan Problems Medical Problems: (1) Hyperglycemia Status: Acute Problems: Comment Review of Relevant I have reviewed the following items lyly (where applicable) has been applied. Labs Laboratory Tests Test 08/27/16 22:50 08/27/16 23:25 08/27/16 23:26 08/27/16 23:31 O2 Saturation 92 % (92-99) Arterial Blood pH 7.33 (7.35-7.45) Arterial Blood pCO2 at Patient Temp 34 mmHg (35-46) Arterial Blood pO2 at Patient Temp 71 mmHg (65-108) Arterial Blood HCO3 18 mmol/L (21-28) Arterial Blood Base Excess -7 mmol/L (-3-3) FiO2 26 White Blood Count 8.7 x10^3/uL (4.0-11.0) Red Blood Count 4.13 x10^6/uL (3.50-5.40) Hemoglobin 13.1 g/dL (12.0-15.5) Hematocrit 40.4 % (36.0-47.0) Mean Corpuscular Volume 98 fL (79-100) Mean Corpuscular Hemoglobin 32 pg (25-35) Mean Corpuscular Hemoglobin Concent 32 g/dL (31-37) Red Cell Distribution Width 14.3 % (11.5-14.5) Platelet Count 201 x10^3/uL (140-400) Neutrophils (%) (Auto) 69 % (31-73) Lymphocytes (%) (Auto) 19 % (24-48) Monocytes (%) (Auto) 10 % (0-9) Eosinophils (%) (Auto) 2 % (0-3) Basophils (%) (Auto) 1 % (0-3) Neutrophils # (Auto) 6.0 x10^3uL (1.8-7.7) Lymphocytes # (Auto) 1.6 x10^3/uL (1.0-4.8) Monocytes # (Auto) 0.9 x10^3/uL (0.0-1.1) Eosinophils # (Auto) 0.2 x10^3/uL (0.0-0.7) Basophils # (Auto) 0.0 x10^3/uL (0.0-0.2) Sodium Level 143 mmol/L (136-145) Potassium Level 3.6 mmol/L (3.5-5.1) Chloride Level 104 mmol/L (98-107) Carbon Dioxide Level 22 mmol/L (21-32) Anion Gap 17 (6-14) Blood Urea Nitrogen 19 mg/dL (7-20) Creatinine 1.2 mg/dL (0.6-1.0) Estimated GFR (Cockcroft-Gault) 43.9 BUN/Creatinine Ratio 16 (6-20) Glucose Level 281 mg/dL (70-99) Calcium Level 8.9 mg/dL (8.5-10.1) Total Bilirubin 0.2 mg/dL (0.2-1.0) Aspartate Amino Transf (AST/SGOT) 22 U/L (15-37) Alanine Aminotransferase (ALT/SGPT) 28 U/L (14-59) Alkaline Phosphatase 106 U/L (46-116) Total Protein 7.6 g/dL (6.4-8.2) Albumin 3.5 g/dL (3.4-5.0) Albumin/Globulin Ratio 0.9 (1.0-1.7) Ethyl Alcohol Level < 10 mg/dL (0-10) Glucose (Fingerstick) 256 mg/dL (70-99) Bedside Troponin I 0.04 ng/ml (<0.08) Test 08/28/16 00:40 08/28/16 07:10 08/28/16 09:55 08/28/16 16:24 Urine Collection Type U cath Urine Color Yellow Urine Clarity Cloudy Urine pH 6.0 Urine Specific [place] >=1.030 Urine Protein >=300 mg/dL (NEG-TRACE) Urine Glucose (UA) >=1000 mg/dL (NEG) Urine Ketones (Stick) Negative mg/dL (NEG) Urine Blood Moderate (NEG) Urine Nitrite Negative (NEG) Urine Bilirubin Negative (NEG) Urine Urobilinogen Dipstick 0.2 mg/dL (0.2 mg/dL) Urine Leukocyte Esterase Moderate (NEG) Urine RBC >40 /HPF (0-2) Urine WBC Tntc /HPF (0-4) Urine Squamous Epithelial Cells Few /LPF Urine Bacteria Many /HPF (0-FEW) Urine Hyaline Casts Few /HPF Urine Opiates Screen Neg (NEG) Urine Methadone Screen Neg (NEG) Urine Barbiturates Neg (NEG) Urine Phencyclidine Screen Neg (NEG) Urine Amphetamine/Methamphetamine Neg (NEG) Urine Benzodiazepines Screen Neg (NEG) Urine Cocaine Screen Neg (NEG) Urine Cannabinoids Screen Neg (NEG) Urine Ethyl Alcohol Neg (NEG) Glucose (Fingerstick) 239 mg/dL (70-99) 156 mg/dL (70-99) 166 mg/dL (70-99) Test 08/28/16 21:15 08/29/16 05:10 08/29/16 07:06 08/29/16 07:31 Glucose (Fingerstick) 179 mg/dL (70-99) 51 mg/dL (70-99) 95 mg/dL (70-99) White Blood Count 5.9 x10^3/uL (4.0-11.0) Red Blood Count 3.83 x10^6/uL (3.50-5.40) Hemoglobin 12.5 g/dL (12.0-15.5) Hematocrit 36.8 % (36.0-47.0) Mean Corpuscular Volume 96 fL (79-100) Mean Corpuscular Hemoglobin 33 pg (25-35) Mean Corpuscular Hemoglobin Concent 34 g/dL (31-37) Red Cell Distribution Width 14.3 % (11.5-14.5) Platelet Count 180 x10^3/uL (140-400) Neutrophils (%) (Auto) 47 % (31-73) Lymphocytes (%) (Auto) 36 % (24-48) Monocytes (%) (Auto) 12 % (0-9) Eosinophils (%) (Auto) 5 % (0-3) Basophils (%) (Auto) 1 % (0-3) Neutrophils # (Auto) 2.8 x10^3uL (1.8-7.7) Lymphocytes # (Auto) 2.1 x10^3/uL (1.0-4.8) Monocytes # (Auto) 0.7 x10^3/uL (0.0-1.1) Eosinophils # (Auto) 0.3 x10^3/uL (0.0-0.7) Basophils # (Auto) 0.0 x10^3/uL (0.0-0.2) Sodium Level 147 mmol/L (136-145) Potassium Level 3.7 mmol/L (3.5-5.1) Chloride Level 109 mmol/L (98-107) Carbon Dioxide Level 33 mmol/L (21-32) Anion Gap 5 (6-14) Blood Urea Nitrogen 12 mg/dL (7-20) Creatinine 0.9 mg/dL (0.6-1.0) Estimated GFR (Cockcroft-Gault) 61.2 Glucose Level 49 mg/dL (70-99) Calcium Level 8.9 mg/dL (8.5-10.1) Test 08/29/16 07:57 08/29/16 11:33 Glucose (Fingerstick) 168 mg/dL (70-99) 202 mg/dL (70-99) Laboratory Tests Test 08/28/16 16:24 7/1/17 21:15 08/29/16 05:10 08/29/16 07:06 Glucose (Fingerstick) 166 mg/dL (70-99) 179 mg/dL (70-99) 51 mg/dL (70-99) White Blood Count 5.9 x10^3/uL (4.0-11.0) Red Blood Count 3.83 x10^6/uL (3.50-5.40) Hemoglobin 12.5 g/dL (12.0-15.5) Hematocrit 36.8 % (36.0-47.0) Mean Corpuscular Volume 96 fL (79-100) Mean Corpuscular Hemoglobin 33 pg (25-35) Mean Corpuscular Hemoglobin Concent 34 g/dL (31-37) Red Cell Distribution Width 14.3 % (11.5-14.5) Platelet Count 180 x10^3/uL (140-400) Neutrophils (%) (Auto) 47 % (31-73) Lymphocytes (%) (Auto) 36 % (24-48) Monocytes (%) (Auto) 12 % (0-9) Eosinophils (%) (Auto) 5 % (0-3) Basophils (%) (Auto) 1 % (0-3) Neutrophils # (Auto) 2.8 x10^3uL (1.8-7.7) Lymphocytes # (Auto) 2.1 x10^3/uL (1.0-4.8) Monocytes # (Auto) 0.7 x10^3/uL (0.0-1.1) Eosinophils # (Auto) 0.3 x10^3/uL (0.0-0.7) Basophils # (Auto) 0.0 x10^3/uL (0.0-0.2) Sodium Level 147 mmol/L (136-145) Potassium Level 3.7 mmol/L (3.5-5.1) Chloride Level 109 mmol/L (98-107) Carbon Dioxide Level 33 mmol/L (21-32) Anion Gap 5 (6-14) Blood Urea Nitrogen 12 mg/dL (7-20) Creatinine 0.9 mg/dL (0.6-1.0) Estimated GFR (Cockcroft-Gault) 61.2 Glucose Level 49 mg/dL (70-99) Calcium Level 8.9 mg/dL (8.5-10.1) Test 08/29/16 07:31 08/29/16 07:57 08/29/16 11:33 Glucose (Fingerstick) 95 mg/dL (70-99) 168 mg/dL (70-99) 202 mg/dL (70-99) Medications Current Medications Ondansetron HCl (Zofran) 4 mg STK-MED ONCE .ROUTE ; Start 08/27/16 at 23:23; Stop 08/27/16 at 23:24; Status DC Ondansetron HCl (Zofran) 4 mg 1X ONCE IV Last administered on 08/27/16 23:26 ; Start 08/27/16 at 23:55; Stop 08/27/16 at 23:57; Status DC Levofloxacin/ Dextrose 150 ml @ 100 mls/hr 1X ONCE IV Last administered on 01:48; Start 08/28/16 at 01:30; Stop 08/28/16 at 02:59; Status DC Ondansetron HCl (Zofran) 4 mg PRN Q8HRS PRN IV NAUSEA/VOMITING; Start 08/28/16 at 02:45; Stop 08/29/16 at 02:44; Status DC Morphine Sulfate 2 mg PRN Q2HR PRN IV PAIN; Start 08/28/16 at 02:45; Stop at 02:44; Status DC Acetaminophen (Tylenol) 650 mg PRN Q6HRS PRN PO FEVER; Start 08/28/16 at 10:45 Ondansetron HCl (Zofran) 4 mg PRN Q6HRS PRN IV NAUSEA/VOMITING 1st choice; Start 08/28/16 at 10:45 Morphine Sulfate 2 mg PRN Q2HR PRN IV PAIN; Start 08/28/16 at 10:45; Stop at 10:45; Status DC Tramadol HCl (Ultram) 50 mg PRN Q6HRS PRN PO PAIN MILD; Start 08/28/16 at 10:45 Hydralazine HCl (Apresoline) 10 mg PRN Q4HRS PRN IVP ELEVATED BP, SEE COMMENTS ; Start 08/28/16 at 10:45 Docusate Sodium (Colace) 100 mg PRN DAILY PRN PO CONSTIPATION; Start 08/28/16 at 10:45 Insulin Aspart (NovoLOG) 0-9 UNITS TIDWMEALS SQ Last administered on 08/29/16 12:45; Start 08/28/16 at 12:00 Dextrose (Dextrose 50%-Water Syringe) 12.5 gm PRN Q15MIN PRN IV SEE COMMENTS; Start 08/28/16 at 10:45 Alprazolam (Xanax) 0.5 mg PRN TID PRN PO ANXIETY / AGITATION Last administered on 08/28/16 21:50; Start 08/28/16 at 10:45 Amlodipine Besylate (Norvasc) 5 mg DAILY PO Last administered on 08/29/16 09:16 ; Start 08/28/16 at 11:00 Folic Acid (Folic Acid) 2 mg DAILY PO Last administered on 08/29/16 09:16; Start 08/28/16 at 11:00 Lisinopril (Prinivil) 40 mg DAILY PO Last administered on 08/29/16 09:16; Start 08/28/16 at 11:00 Metformin HCl (Glucophage) 1,000 mg BIDWMEALS PO Last administered on 08/29/16 09:15; Start 08/28/16 at 17:00 Simvastatin (Zocor) 40 mg QHS PO Last administered on 08/28/16 21:49; Start 08/28/16 at 21:00 Fluoxetine HCl (PROzac) 40 mg DAILY PO Last administered on 08/29/16 09:15; Start 08/28/16 at 11:00 Insulin Detemir (Levemir) 65 units QHS SQ ; Start 08/28/16 at 21:00; Stop at 21:00; Status DC Pantoprazole Sodium (Protonix) 40 mg DAILYAC PO Last administered on 08/29/16 09:16; Start 08/28/16 at 11:00 Venlafaxine HCl (Effexor) 50 mg TID PO Last administered on 08/29/16 09:16; Start 08/28/16 at 14:00 Insulin Detemir (Levemir) 60 units QHS SQ Last administered on 08/28/16 21:56; Start 08/28/16 at 21:00; Stop 08/29/16 at 09:39; Status DC Enoxaparin Sodium (Lovenox 40mg Syringe) 40 mg DAILY16 SQ Last administered on 08/28/16t 16:49; Start 08/28/16 at 16:00 Insulin Detemir (Levemir) 50 units QHS SQ ; Start 08/29/16 at 21:00 Active Scripts Active Reported Folic Acid 1 Mg Tablet 2 Tab PO DAILY Lisinopril 40 Mg Tablet 1 Tab PO DAILY Amlodipine Besylate 5 Mg Tablet 5 Mg PO DAILY Hydrochlorothiazide Tablet (Hydrochlorothiazide) 25 Mg Tablet 1 Tab PO DAILY Simvastatin 40 Mg Tablet 1 Tab PO QHS Omeprazole 40 Mg Capsule.dr 1 Cap PO DAILY Metformin Hcl 1,000 Mg Tablet 1,000 Mg PO BIDWMEALS Xanax (Alprazolam) 0.5 Mg Tablet 1 Tab PO PRN TID PRN Klonopin (Clonazepam) 0.5 Mg Tablet 1 Tab PO QHS Fluoxetine Hcl 40 Mg Capsule 1 Cap PO DAILY Lantus Solostar (Insulin Glargine,Hum.rec.anlog) 100 Unit/1 Ml Insuln.pen 65 Unit SQ QHS Effexor Xr (Venlafaxine Hcl) 150 Mg Cap.er.24h 1 Cap PO DAILY Vitals/I & O Vital Sign - Last 24 Hours 08/28/16 08/28/16 08/28/16 08/28/16 15:00 19:00 20:00 23:00 Temp 97.8 98.5 97.4 97.8 98.5 97.4 Pulse 85 88 81 Resp 19 20 20 B/P (MAP) 131/62 (85) 112/57 (75) 132/74 (93) Pulse Ox 95 96 93 O2 Delivery Nasal Cannula Nasal Cannula Nasal Cannula Nasal Cannula O2 Flow Rate 2.0 2.0 2.0 2.0 08/29/16 08/29/16 08/29/16 08/29/16 03:00 07:00 08:00 09:16 Temp 98.9 97.9 98.9 97.9 Pulse 78 87 87 Resp 20 16 B/P (MAP) 133/69 (90) 162/77 (105) 162/77 Pulse Ox 94 94 O2 Delivery Nasal Cannula Nasal Cannula Nasal Cannula O2 Flow Rate 2.0 2.0 2.0 08/29/16 08/29/16 08/29/16 08/29/16 09:16 09:40 09:45 09:50 Pulse 87 71 89 79 B/P (MAP) 162/77 155/65 (95) 165/74 (104) 137/62 (87) Pulse Ox 97 91 94 O2 Delivery Nasal Cannula Nasal Cannula Nasal Cannula O2 Flow Rate 2.0 2.0 2.0 Intake and Output 08/28/16 08/28/16 08/29/16 15:00 23:00 07:00 Intake Total 500 ml 1450 ml 0 ml Output Total 850 ml 200 ml Balance 500 ml 600 ml -200 ml ARISTEO PACHECO MD Aug 29, 2016 13:13
[2016-08-29] MEDS ORDERED: IV 1/2 NORMAL SALINE 1,000 ML IV ONE (13:15)
--- NOTE | 2016-08-29 14:00 | PDOC ---
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 When I told her we'd do wone tomorrow if she were not better, she says, "I'll be better" Observation PT/OT Subjective no other complaints Objective Vital Signs Date Time Temp Pulse Resp B/P (MAP) Pulse Ox O2 Delivery O2 Flow Rate FiO2 08/29/16 09:50 79 137/62 (87) 94 Nasal Cannula 2.0 08/29/16 07:00 97.9 16 97.9 Intake and Output 08/29/16 07:00 Intake Total 1950 ml Output Total 1050 ml Balance 900 ml Intake Oral 1950 ml Output Urine Total 1050 ml PHYSICAL EXAM Alert. Oriented to time, place and person. PERRL. EOMI. CN: no focal findings. Muscle tone: normal. Muscle strength: 5/5 DTR: 2+ Plantar reflex: flexor Gait: not examined in bed. Sensory exam: stocking loss. No cerebellar signs elicited; normal [id number]. Review of Relevant I have reviewed the following items lyly (where applicable) has been applied. Labs Laboratory Tests Test 08/27/16 22:50 08/27/16 23:25 08/27/16 23:26 08/27/16 23:31 O2 Saturation 92 % (92-99) Arterial Blood pH 7.33 (7.35-7.45) Arterial Blood pCO2 at Patient Temp 34 mmHg (35-46) Arterial Blood pO2 at Patient Temp 71 mmHg (65-108) Arterial Blood HCO3 18 mmol/L (21-28) Arterial Blood Base Excess -7 mmol/L (-3-3) FiO2 26 White Blood Count 8.7 x10^3/uL (4.0-11.0) Red Blood Count 4.13 x10^6/uL (3.50-5.40) Hemoglobin 13.1 g/dL (12.0-15.5) Hematocrit 40.4 % (36.0-47.0) Mean Corpuscular Volume 98 fL (79-100) Mean Corpuscular Hemoglobin 32 pg (25-35) Mean Corpuscular Hemoglobin Concent 32 g/dL (31-37) Red Cell Distribution Width 14.3 % (11.5-14.5) Platelet Count 201 x10^3/uL (140-400) Neutrophils (%) (Auto) 69 % (31-73) Lymphocytes (%) (Auto) 19 % (24-48) Monocytes (%) (Auto) 10 % (0-9) Eosinophils (%) (Auto) 2 % (0-3) Basophils (%) (Auto) 1 % (0-3) Neutrophils # (Auto) 6.0 x10^3uL (1.8-7.7) Lymphocytes # (Auto) 1.6 x10^3/uL (1.0-4.8) Monocytes # (Auto) 0.9 x10^3/uL (0.0-1.1) Eosinophils # (Auto) 0.2 x10^3/uL (0.0-0.7) Basophils # (Auto) 0.0 x10^3/uL (0.0-0.2) Sodium Level 143 mmol/L (136-145) Potassium Level 3.6 mmol/L (3.5-5.1) Chloride Level 104 mmol/L (98-107) Carbon Dioxide Level 22 mmol/L (21-32) Anion Gap 17 (6-14) Blood Urea Nitrogen 19 mg/dL (7-20) Creatinine 1.2 mg/dL (0.6-1.0) Estimated GFR (Cockcroft-Gault) 43.9 BUN/Creatinine Ratio 16 (6-20) Glucose Level 281 mg/dL (70-99) Calcium Level 8.9 mg/dL (8.5-10.1) Total Bilirubin 0.2 mg/dL (0.2-1.0) Aspartate Amino Transf (AST/SGOT) 22 U/L (15-37) Alanine Aminotransferase (ALT/SGPT) 28 U/L (14-59) Alkaline Phosphatase 106 U/L (46-116) Total Protein 7.6 g/dL (6.4-8.2) Albumin 3.5 g/dL (3.4-5.0) Albumin/Globulin Ratio 0.9 (1.0-1.7) Ethyl Alcohol Level < 10 mg/dL (0-10) Glucose (Fingerstick) 256 mg/dL (70-99) Bedside Troponin I 0.04 ng/ml (<0.08) Test 08/28/16 00:40 08/28/16 07:10 08/28/16 09:55 08/28/16 16:24 Urine Collection Type U cath Urine Color Yellow Urine Clarity Cloudy Urine pH 6.0 Urine Specific [place] >=1.030 Urine Protein >=300 mg/dL (NEG-TRACE) Urine Glucose (UA) >=1000 mg/dL (NEG) Urine Ketones (Stick) Negative mg/dL (NEG) Urine Blood Moderate (NEG) Urine Nitrite Negative (NEG) Urine Bilirubin Negative (NEG) Urine Urobilinogen Dipstick 0.2 mg/dL (0.2 mg/dL) Urine Leukocyte Esterase Moderate (NEG) Urine RBC >40 /HPF (0-2) Urine WBC Tntc /HPF (0-4) Urine Squamous Epithelial Cells Few /LPF Urine Bacteria Many /HPF (0-FEW) Urine Hyaline Casts Few /HPF Urine Opiates Screen Neg (NEG) Urine Methadone Screen Neg (NEG) Urine Barbiturates Neg (NEG) Urine Phencyclidine Screen Neg (NEG) Urine Amphetamine/Methamphetamine Neg (NEG) Urine Benzodiazepines Screen Neg (NEG) Urine Cocaine Screen Neg (NEG) Urine Cannabinoids Screen Neg (NEG) Urine Ethyl Alcohol Neg (NEG) Glucose (Fingerstick) 239 mg/dL (70-99) 156 mg/dL (70-99) 166 mg/dL (70-99) Test 08/28/16 21:15 08/29/16 05:10 08/29/16 07:06 08/29/16 07:31 Glucose (Fingerstick) 179 mg/dL (70-99) 51 mg/dL (70-99) 95 mg/dL (70-99) White Blood Count 5.9 x10^3/uL (4.0-11.0) Red Blood Count 3.83 x10^6/uL (3.50-5.40) Hemoglobin 12.5 g/dL (12.0-15.5) Hematocrit 36.8 % (36.0-47.0) Mean Corpuscular Volume 96 fL (79-100) Mean Corpuscular Hemoglobin 33 pg (25-35) Mean Corpuscular Hemoglobin Concent 34 g/dL (31-37) Red Cell Distribution Width 14.3 % (11.5-14.5) Platelet Count 180 x10^3/uL (140-400) Neutrophils (%) (Auto) 47 % (31-73) Lymphocytes (%) (Auto) 36 % (24-48) Monocytes (%) (Auto) 12 % (0-9) Eosinophils (%) (Auto) 5 % (0-3) Basophils (%) (Auto) 1 % (0-3) Neutrophils # (Auto) 2.8 x10^3uL (1.8-7.7) Lymphocytes # (Auto) 2.1 x10^3/uL (1.0-4.8) Monocytes # (Auto) 0.7 x10^3/uL (0.0-1.1) Eosinophils # (Auto) 0.3 x10^3/uL (0.0-0.7) Basophils # (Auto) 0.0 x10^3/uL (0.0-0.2) Sodium Level 147 mmol/L (136-145) Potassium Level 3.7 mmol/L (3.5-5.1) Chloride Level 109 mmol/L (98-107) Carbon Dioxide Level 33 mmol/L (21-32) Anion Gap 5 (6-14) Blood Urea Nitrogen 12 mg/dL (7-20) Creatinine 0.9 mg/dL (0.6-1.0) Estimated GFR (Cockcroft-Gault) 61.2 Glucose Level 49 mg/dL (70-99) Calcium Level 8.9 mg/dL (8.5-10.1) Test 08/29/16 07:57 08/29/16 11:33 Glucose (Fingerstick) 168 mg/dL (70-99) 202 mg/dL (70-99) Laboratory Tests Test 08/28/16 16:24 08/28/16 21:15 08/29/16 05:10 08/29/16 07:06 Glucose (Fingerstick) 166 mg/dL (70-99) 179 mg/dL (70-99) 51 mg/dL (70-99) White Blood Count 5.9 x10^3/uL (4.0-11.0) Red Blood Count 3.83 x10^6/uL (3.50-5.40) Hemoglobin 12.5 g/dL (12.0-15.5) Hematocrit 36.8 % (36.0-47.0) Mean Corpuscular Volume 96 fL (79-100) Mean Corpuscular Hemoglobin 33 pg (25-35) Mean Corpuscular Hemoglobin Concent 34 g/dL (31-37) Red Cell Distribution Width 14.3 % (11.5-14.5) Platelet Count 180 x10^3/uL (140-400) Neutrophils (%) (Auto) 47 % (31-73) Lymphocytes (%) (Auto) 36 % (24-48) Monocytes (%) (Auto) 12 % (0-9) Eosinophils (%) (Auto) 5 % (0-3) Basophils (%) (Auto) 1 % (0-3) Neutrophils # (Auto) 2.8 x10^3uL (1.8-7.7) Lymphocytes # (Auto) 2.1 x10^3/uL (1.0-4.8) Monocytes # (Auto) 0.7 x10^3/uL (0.0-1.1) Eosinophils # (Auto) 0.3 x10^3/uL (0.0-0.7) Basophils # (Auto) 0.0 x10^3/uL (0.0-0.2) Sodium Level 147 mmol/L (136-145) Potassium Level 3.7 mmol/L (3.5-5.1) Chloride Level 109 mmol/L (98-107) Carbon Dioxide Level 33 mmol/L (21-32) Anion Gap 5 (6-14) Blood Urea Nitrogen 12 mg/dL (7-20) Creatinine 0.9 mg/dL (0.6-1.0) Estimated GFR (Cockcroft-Gault) 61.2 Glucose Level 49 mg/dL (70-99) Calcium Level 8.9 mg/dL (8.5-10.1) Test 08/29/16 07:31 08/29/16 07:57 08/29/16 11:33 Glucose (Fingerstick) 95 mg/dL (70-99) 168 mg/dL (70-99) 202 mg/dL (70-99) Medications Current Medications Ondansetron HCl (Zofran) 4 mg STK-MED ONCE .ROUTE ; Start 08/27/16 at 23:23; Stop 08/27/16 at 23:24; Status DC Ondansetron HCl (Zofran) 4 mg 1X ONCE IV Last administered on 08/27/16 23:26 ; Start 08/27/16 at 23:55; Stop 08/27/16 at 23:57; Status DC Levofloxacin/ Dextrose 150 ml @ 100 mls/hr 1X ONCE IV Last administered on 01:48; Start 08/28/16 at 01:30; Stop 08/28/16 at 02:59; Status DC Ondansetron HCl (Zofran) 4 mg PRN Q8HRS PRN IV NAUSEA/VOMITING; Start 08/28/16 at 02:45; Stop 08/29/16 at 02:44; Status DC Morphine Sulfate 2 mg PRN Q2HR PRN IV PAIN; Start 08/28/16 at 02:45; Stop at 02:44; Status DC Acetaminophen (Tylenol) 650 mg PRN Q6HRS PRN PO FEVER; Start 08/28/16 at 10:45 Ondansetron HCl (Zofran) 4 mg PRN Q6HRS PRN IV NAUSEA/VOMITING 1st choice; Start 08/28/16 at 10:45 Morphine Sulfate 2 mg PRN Q2HR PRN IV PAIN; Start 08/28/16 at 10:45; Stop at 10:45; Status DC Tramadol HCl (Ultram) 50 mg PRN Q6HRS PRN PO PAIN MILD; Start 08/28/16 at 10:45 Hydralazine HCl (Apresoline) 10 mg PRN Q4HRS PRN IVP ELEVATED BP, SEE COMMENTS ; Start 08/28/16 at 10:45 Docusate Sodium (Colace) 100 mg PRN DAILY PRN PO CONSTIPATION; Start 08/28/16 at 10:45 Insulin Aspart (NovoLOG) 0-9 UNITS TIDWMEALS SQ Last administered on 08/29/16 12:45; Start 08/28/16 at 12:00 Dextrose (Dextrose 50%-Water Syringe) 12.5 gm PRN Q15MIN PRN IV SEE COMMENTS; Start 08/28/16 at 10:45 Alprazolam (Xanax) 0.5 mg PRN TID PRN PO ANXIETY / AGITATION Last administered on 08/28/16 21:50; Start 08/28/16 at 10:45 Amlodipine Besylate (Norvasc) 5 mg DAILY PO Last administered on 08/29/16 09:16 ; Start 08/28/16 at 11:00 Folic Acid (Folic Acid) 2 mg DAILY PO Last administered on 08/29/16 09:16; Start 08/28/16 at 11:00 Lisinopril (Prinivil) 40 mg DAILY PO Last administered on 08/29/16 09:16; Start 08/28/16 at 11:00 Metformin HCl (Glucophage) 1,000 mg BIDWMEALS PO Last administered on 08/29/16 09:15; Start 08/28/16 at 17:00 Simvastatin (Zocor) 40 mg QHS PO Last administered on 08/28/16 21:49; Start 08/28/16 at 21:00 Fluoxetine HCl (PROzac) 40 mg DAILY PO Last administered on 08/29/16 09:15; Start 08/28/16 at 11:00 Insulin Detemir (Levemir) 65 units QHS SQ ; Start 08/28/16 at 21:00; Stop at 21:00; Status DC Pantoprazole Sodium (Protonix) 40 mg DAILYAC PO Last administered on 08/29/16 09:16; Start 08/28/16 at 11:00 Venlafaxine HCl (Effexor) 50 mg TID PO Last administered on 08/29/16 09:16; Start 08/28/16 at 14:00 Insulin Detemir (Levemir) 60 units QHS SQ Last administered on 08/28/16 21:56; Start 08/28/16 at 21:00; Stop 08/29/16 at 09:39; Status DC Enoxaparin Sodium (Lovenox 40mg Syringe) 40 mg DAILY16 SQ Last administered on 08/28/16 16:49; Start 08/28/16 at 16:00 Insulin Detemir (Levemir) 50 units QHS SQ ; Start 08/29/16 at 21:00 Sodium Chloride 1,000 ml @ 75 mls/hr 1X ONCE IV ; Start 08/29/16 at 13:15; Stop 08/30/16 at 02:34 Active Scripts Active Reported Folic Acid 1 Mg Tablet 2 Tab PO DAILY Lisinopril 40 Mg Tablet 1 Tab PO DAILY Amlodipine Besylate 5 Mg Tablet 5 Mg PO DAILY Hydrochlorothiazide Tablet (Hydrochlorothiazide) 25 Mg Tablet 1 Tab PO DAILY Simvastatin 40 Mg Tablet 1 Tab PO QHS Omeprazole 40 Mg Capsule.dr 1 Cap PO DAILY Metformin Hcl 1,000 Mg Tablet 1,000 Mg PO BIDWMEALS Xanax (Alprazolam) 0.5 Mg Tablet 1 Tab PO PRN TID PRN Klonopin (Clonazepam) 0.5 Mg Tablet 1 Tab PO QHS Fluoxetine Hcl 40 Mg Capsule 1 Cap PO DAILY Lantus Solostar (Insulin Glargine,Hum.rec.anlog) 100 Unit/1 Ml Insuln.pen 65 Unit SQ QHS Effexor Xr (Venlafaxine Hcl) 150 Mg Cap.er.24h 1 Cap PO DAILY Vitals/I & O Vital Sign - Last 24 Hours 08/28/16 08/28/16 08/28/16 08/28/16 15:00 19:00 20:00 23:00 Temp 97.8 98.5 97.4 97.8 98.5 97.4 Pulse 85 88 81 Resp 19 20 20 B/P (MAP) 131/62 (85) 112/57 (75) 132/74 (93) Pulse Ox 95 96 93 O2 Delivery Nasal Cannula Nasal Cannula Nasal Cannula Nasal Cannula O2 Flow Rate 2.0 2.0 2.0 2.0 08/29/16 08/29/16 08/29/16 08/29/16 03:00 07:00 08:00 09:16 Temp 98.9 97.9 98.9 97.9 Pulse 78 87 87 Resp 20 16 B/P (MAP) 133/69 (90) 162/77 (105) 162/77 Pulse Ox 94 94 O2 Delivery Nasal Cannula Nasal Cannula Nasal Cannula O2 Flow Rate 2.0 2.0 2.0 08/29/16 08/29/16 08/29/16 08/29/16 09:16 09:40 09:45 09:50 Pulse 87 71 89 79 B/P (MAP) 162/77 155/65 (95) 165/74 (104) 137/62 (87) Pulse Ox 97 91 94 O2 Delivery Nasal Cannula Nasal Cannula Nasal Cannula O2 Flow Rate 2.0 2.0 2.0 Intake and Output 08/28/16 08/28/16 08/29/16 15:00 23:00 07:00 Intake Total 500 ml 1450 ml 0 ml Output Total 850 ml 200 ml Balance 500 ml 600 ml -200 ml MACY KNOX MD Aug 29, 2016 14:00
[2016-08-29] MEDS: ENOXAPARIN 40 MG/0.4 ML SYRINGE. SQ SCH (15:48)
[2016-08-29] MEDS ORDERED: INSULIN DETEMIR 300 UNITS/3 ML INSULN.PEN. SQ SCH (21:00)
[2016-08-29] MEDS: SIMVASTATIN 40 MG TABLET. PO SCH (21:16)
[2016-08-30 03:00] VITALS: BP 151/75
[2016-08-30 04:54] LABS: BASO % 0 % (0-3); EOS % 3 % (0-3); HEMATOCRIT 36.4 % (36.0-47.0); LYMPH # 1.9 x10^3/uL (1.0-4.8); LYMPH % 31 % (24-48); MEAN CORPUSCULAR HEMOGLOBIN 32 pg (25-35); MEAN CORPUSCULAR HGB CONC 33 g/dL (31-37); MEAN CORPUSCULAR VOLUME 97 fL (79-100); MONO % 11 % (0-9); NEUT % 55 % (31-73); PLATELET COUNT 180 x10^3/uL (140-400); RED BLOOD COUNT 3.74 x10^6/uL (3.50-5.40); RED CELL DISTRIBUTION WIDTH 14.2 % (11.5-14.5); WHITE BLOOD COUNT 6.4 x10^3/uL (4.0-11.0)
[2016-08-30 05:05] LABS: GFR 54.2; POTASSIUM 3.5 mmol/L (3.5-5.1)
[2016-08-30 07:00] VITALS: BP 158/79
[2016-08-30] MEDS: INSULIN ASPART 300 UNITS/3 ML INSULN.PEN SQ SCH (07:51)
[2016-08-30] MEDS: PANTOPRAZOLE 40 MG TABLET.DR. PO SCH (07:56)
[2016-08-30] MEDS: FOLIC ACID 1 MG TABLET. PO SCH (07:56)
[2016-08-30] MEDS: VENLAFAXINE 50 MG TABLET. PO SCH (07:56)
[2016-08-30 07:57] VITALS: BP 158/79
[2016-08-30] MEDS: amLODIPine BESYLATE 5 MG TABLET PO SCH (07:57)
[2016-08-30] MEDS: FLUoxetine HCL 20 MG CAPSULE PO SCH (07:57)
[2016-08-30] MEDS: LISINOPRIL 40 MG TABLET. PO SCH (07:57)
--- NOTE | 2016-08-30 10:17 | PDOC3 ---
Discharge Summary Visit Information Date of Admission: Aug 28, 2016 Date of Discharge: Aug 30, 2016 Admitting Diagnosis Comment: 1. syncope, sec to sleep deprivation 2. htn urgency 3. dm2 on lantus 65u qhs 4. CKD 3 5. unsteady gait Final Diagnosis Problems Medical Problems: (1) Hyperglycemia Status: Acute Brief Hospital Course Allergies Allergies Coded Allergies Type Severity Reaction Last Updated Verified cephalexin Allergy Unknown 08/27/16 Yes codeine Allergy Unknown 08/27/16 Yes Vital Signs Vital Signs Date Time Temp Pulse Resp B/P (MAP) Pulse Ox O2 Delivery O2 Flow Rate FiO2 08/30/16 08:00 Room Air 08/30/16 07:57 83 158/79 08/30/16 07:00 98.4 18 90 2.0 98.4 Lab Results Laboratory Tests Test 08/28/16 16:24 08/28/16 21:15 08/29/16 05:10 08/29/16 07:06 Glucose (Fingerstick) 166 mg/dL (70-99) 179 mg/dL (70-99) 51 mg/dL (70-99) White Blood Count 5.9 x10^3/uL (4.0-11.0) Red Blood Count 3.83 x10^6/uL (3.50-5.40) Hemoglobin 12.5 g/dL (12.0-15.5) Hematocrit 36.8 % (36.0-47.0) Mean Corpuscular Volume 96 fL (79-100) Mean Corpuscular Hemoglobin 33 pg (25-35) Mean Corpuscular Hemoglobin Concent 34 g/dL (31-37) Red Cell Distribution Width 14.3 % (11.5-14.5) Platelet Count 180 x10^3/uL (140-400) Neutrophils (%) (Auto) 47 % (31-73) Lymphocytes (%) (Auto) 36 % (24-48) Monocytes (%) (Auto) 12 % (0-9) Eosinophils (%) (Auto) 5 % (0-3) Basophils (%) (Auto) 1 % (0-3) Neutrophils # (Auto) 2.8 x10^3uL (1.8-7.7) Lymphocytes # (Auto) 2.1 x10^3/uL (1.0-4.8) Monocytes # (Auto) 0.7 x10^3/uL (0.0-1.1) Eosinophils # (Auto) 0.3 x10^3/uL (0.0-0.7) Basophils # (Auto) 0.0 x10^3/uL (0.0-0.2) Sodium Level 147 mmol/L (136-145) Potassium Level 3.7 mmol/L (3.5-5.1) Chloride Level 109 mmol/L (98-107) Carbon Dioxide Level 33 mmol/L (21-32) Anion Gap 5 (6-14) Blood Urea Nitrogen 12 mg/dL (7-20) Creatinine 0.9 mg/dL (0.6-1.0) Estimated GFR (Cockcroft-Gault) 61.2 Glucose Level 49 mg/dL (70-99) Calcium Level 8.9 mg/dL (8.5-10.1) Test 08/29/16 07:31 08/29/16 07:57 08/29/16 11:33 08/29/16 17:02 Glucose (Fingerstick) 95 mg/dL (70-99) 168 mg/dL (70-99) 202 mg/dL (70-99) 114 mg/dL (70-99) Test 08/29/16 21:19 08/30/16 03:20 08/30/16 07:50 08/30/16 08:12 Glucose (Fingerstick) 233 mg/dL (70-99) 59 mg/dL (70-99) 115 mg/dL (70-99) White Blood Count 6.4 x10^3/uL (4.0-11.0) Red Blood Count 3.74 x10^6/uL (3.50-5.40) Hemoglobin 12.0 g/dL (12.0-15.5) Hematocrit 36.4 % (36.0-47.0) Mean Corpuscular Volume 97 fL (79-100) Mean Corpuscular Hemoglobin 32 pg (25-35) Mean Corpuscular Hemoglobin Concent 33 g/dL (31-37) Red Cell Distribution Width 14.2 % (11.5-14.5) Platelet Count 180 x10^3/uL (140-400) Neutrophils (%) (Auto) 55 % (31-73) Lymphocytes (%) (Auto) 31 % (24-48) Monocytes (%) (Auto) 11 % (0-9) Eosinophils (%) (Auto) 3 % (0-3) Basophils (%) (Auto) 0 % (0-3) Neutrophils # (Auto) 3.5 x10^3uL (1.8-7.7) Lymphocytes # (Auto) 1.9 x10^3/uL (1.0-4.8) Monocytes # (Auto) 0.7 x10^3/uL (0.0-1.1) Eosinophils # (Auto) 0.2 x10^3/uL (0.0-0.7) Basophils # (Auto) 0.0 x10^3/uL (0.0-0.2) Sodium Level 144 mmol/L (136-145) Potassium Level 3.5 mmol/L (3.5-5.1) Chloride Level 106 mmol/L (98-107) Carbon Dioxide Level 32 mmol/L (21-32) Anion Gap 6 (6-14) Blood Urea Nitrogen 11 mg/dL (7-20) Creatinine 1.0 mg/dL (0.6-1.0) Estimated GFR (Cockcroft-Gault) 54.2 Glucose Level 89 mg/dL (70-99) Calcium Level 9.0 mg/dL (8.5-10.1) Laboratory Tests Test 08/29/16 11:33 08/29/16 17:02 08/29/16 21:19 08/30/16 03:20 Glucose (Fingerstick) 202 mg/dL (70-99) 114 mg/dL (70-99) 233 mg/dL (70-99) White Blood Count 6.4 x10^3/uL (4.0-11.0) Red Blood Count 3.74 x10^6/uL (3.50-5.40) Hemoglobin 12.0 g/dL (12.0-15.5) Hematocrit 36.4 % (36.0-47.0) Mean Corpuscular Volume 97 fL (79-100) Mean Corpuscular Hemoglobin 32 pg (25-35) Mean Corpuscular Hemoglobin Concent 33 g/dL (31-37) Red Cell Distribution Width 14.2 % (11.5-14.5) Platelet Count 180 x10^3/uL (140-400) Neutrophils (%) (Auto) 55 % (31-73) Lymphocytes (%) (Auto) 31 % (24-48) Monocytes (%) (Auto) 11 % (0-9) Eosinophils (%) (Auto) 3 % (0-3) Basophils (%) (Auto) 0 % (0-3) Neutrophils # (Auto) 3.5 x10^3uL (1.8-7.7) Lymphocytes # (Auto) 1.9 x10^3/uL (1.0-4.8) Monocytes # (Auto) 0.7 x10^3/uL (0.0-1.1) Eosinophils # (Auto) 0.2 x10^3/uL (0.0-0.7) Basophils # (Auto) 0.0 x10^3/uL (0.0-0.2) Sodium Level 144 mmol/L (136-145) Potassium Level 3.5 mmol/L (3.5-5.1) Chloride Level 106 mmol/L (98-107) Carbon Dioxide Level 32 mmol/L (21-32) Anion Gap 6 (6-14) Blood Urea Nitrogen 11 mg/dL (7-20) Creatinine 1.0 mg/dL (0.6-1.0) Estimated GFR (Cockcroft-Gault) 54.2 Glucose Level 89 mg/dL (70-99) Calcium Level 9.0 mg/dL (8.5-10.1) Test 08/30/16 07:50 08/30/16 08:12 Glucose (Fingerstick) 59 mg/dL (70-99) 115 mg/dL (70-99) Brief Hospital Course Ms. Salas is a 75 old female who spent so much time in [employer], then passed out or near passed out, NEuro exam non focal, seen by neuro, not orthostatic, Likely wa sleep deprived based on clinical info, Stable to go home , non change in meds, no new home meds. Pt seen and examined COunselled > 50% time Discharge Information Condition at Discharge: Improved, Stable Follow Up: Weeks (PCP as scheduled/prn) Disposition/Orders: D/C to Home Scheduled Amlodipine Besylate (Amlodipine Besylate), 5 MG PO DAILY, (Reported) Clonazepam (Klonopin), 1 TAB PO QHS, (Reported) Fluoxetine Hcl (Fluoxetine Hcl), 1 CAP PO DAILY, (Reported) Folic Acid (Folic Acid), 2 TAB PO DAILY, (Reported) Hydrochlorothiazide (Hydrochlorothiazide Tablet ), 1 TAB PO DAILY, (Reported) Insulin Glargine,Hum.rec.anlog (Lantus Solostar), 65 UNIT SQ QHS, (Reported) Lisinopril (Lisinopril), 1 TAB PO DAILY, (Reported) Metformin Hcl (Metformin Hcl), 1,000 MG PO BIDWMEALS, (Reported) Omeprazole (Omeprazole), 1 CAP PO DAILY, (Reported) Simvastatin (Simvastatin), 1 TAB PO QHS, (Reported) Venlafaxine Hcl (Effexor Xr), 1 CAP PO DAILY, (Reported) Scheduled PRN Alprazolam (Xanax), 1 TAB PO PRN TID PRN for ANXIETY / AGITATION, (Reported) VIET SANDHU MD Aug 30, 2016 10:17
== END 2016-08-30 11:27 | disposition home or self-care (01) ==
LOC: ER 22:45 → 5 NORTH 08-28 00:48
PROVIDERS: ADMIT Internal Medicine; ATTEND Internal Medicine
DX: R55 Syncope and collapse (principal); I16.0 Hypertensive urgency; E11.22 Type 2 diabetes mellitus with diabetic chronic kidney disease; I12.9 Hypertensive chronic kidney disease with stage 1 through stage 4 chronic kidney disease, or unspecified chronic kidney disease; N18.3 Chronic kidney disease, stage 3 (moderate); R26.89 Other abnormalities of gait and mobility; E11.65 Type 2 diabetes mellitus with hyperglycemia; M06.9 Rheumatoid arthritis, unspecified; K21.9 Gastro-esophageal reflux disease without esophagitis; I95.1 Orthostatic hypotension; Z72.820 Sleep deprivation; Z79.4 Long term (current) use of insulin; Z87.891 Personal history of nicotine dependence; W07.XXXA Fall from chair, initial encounter; Y93.89 Activity, other specified; Y92.89 Other specified places as the place of occurrence of the external cause; Y99.8 Other external cause status
CPT/HCPCS: 36415; 36600; 70450; 71010; 80048; 80053; 81001; 82805; 82962; 84484; 85027; 87086; 87186; 93005; 93880; 96365; 96372; 96375; 97161; 97165; 99285; G0378; G0480; G0481; G8978; G8979; G8980; G8987; G8988; G8989; J1650; J1815; J1956; J2405; G0379

== ENCOUNTER 2021-04-26 11:07 | Inpatient (IN) | payer MEDICARE, OTHER ==
[~2021-04-26] VITALS: Ht 165.1 cm; Wt 58.4 kg
[~2021-04-26 11:07] MED LIST: ACET325T9 PO; ALPR0.5T PO; AMLO-186 PO; ARIP5TAB13 PO; ASPI81TA59 PO; CLON0.5T PO; CYAN100031 PO; DIPH25CA58 PO; DULA1.5P SQ; FERR325T14 PO; FLUO40CA2 PO; FOLI1TAB16 PO; HYDR-2145 PO; HYDR-2759 PO; HYDR200T71 PO; INSU100I13 SQ; INSU100V35 SQ; LISI-130 PO; LISI20TA18 PO; LOPE2TAB27 PO; MAG-115 PO; MAGN24003 PO; MAGN400T48 PO; METF10007 PO; MIRT-36 PO; OMEP20TA63 PO; OMEP40CA7 PO; OXYC1TAB15 PO; SIMV40TA18 PO; SOLI10TA2 PO; VENL150C PO
[2021-04-26] MEDS ORDERED: DEXAMETHASONE SOD PHOS 4 MG/ML VIAL IVP ONE (11:15)
[2021-04-26] MEDS ORDERED: IPRATRPIUM/ALBUTEROL 0.5/2.5MG 3 ML NEBU. NEB ONE (11:15)
[2021-04-26 11:35] LABS: BASO % 1 % (0-3); EOS # 0.1 x10^3/uL (0.0-0.7); EOS % 1 % (0-3); HEMATOCRIT 28.5 % (36.0-47.0); LYMPH # 0.5 x10^3/uL (1.0-4.8); LYMPH % 5 % (24-48); MEAN CORPUSCULAR HEMOGLOBIN 25 pg (25-35); MEAN CORPUSCULAR HGB CONC 32 g/dL (31-37); MEAN CORPUSCULAR VOLUME 80 fL (79-100); MONO # 0.5 x10^3/uL (0.0-1.1); MONO % 6 % (0-9); NEUT # 7.8 x10^3/uL (1.8-7.7); NEUT % 88 % (31-73); PLATELET COUNT 391 x10^3/uL (140-400); RED BLOOD COUNT 3.57 x10^6/uL (3.50-5.40); RED CELL DISTRIBUTION WIDTH 16.1 % (11.5-14.5); WHITE BLOOD COUNT 8.9 x10^3/uL (4.0-11.0)
--- NOTE | 2021-04-26 11:35 | RAD ---
Single view chest dated 04/26/2021 11:32 AM: COMPARISON: 08/27/2016 Clinical Indication: Dyspnea. Findings: Single upright portable exam of the chest was performed. Heart and mediastinal contours are stable. T here is patchy bilateral airspace disease with prominent interstitial markings, new from prior study. No pleural effusion. No pneumothorax. IMPRESSION: Bilateral airspace disease, edema versus atypical pneumonia. Electronically signed by: Parag Velasquez MD (04/26/2021 11:33 AM) [id number]
--- NOTE | 2021-04-26 11:40 | PHYS DOC ---
Past Medical History Past Medical History: Diabetes-Type II, Hypertension, Other Additional Past Medical Histor: RA, ANEURYSM T11,T12 FX,OSTEOPORESIS,HOME 02 Past Surgical History: Hysterectomy, Other Additional Past Surgical Histo: "ANEURYSM SURGERY" Smoking Status: Former Smoker Alcohol Use: None Drug Use: None Adult General Chief Complaint Chief Complaint: SHORTNESS OF BREATH HPI HPI Patient is a 80 year old female who presents with dyspnea. Symptoms started this morning. Patient states that she had a cough productive of yellow sputum but has not had a fever. She does have a sensation of chest tightness or chest pressure, this does not radiate and she does not have any associated nausea, vomiting, diaphoresis or abdominal pain. Patient is O2 dependent on 2 L at baseline. Review of Systems Review of Systems Constitutional: Denies fever Eyes: Denies change in visual acuity or eye pain HENT: Denies sore throat Respiratory: Positive for shortness of breath Cardiovascular: Denies chest pain but does admit to a tightness/pressure sensation GI: Denies abd pain : Denies dysuria Musculoskeletal: Denies back or extremity injury Integument: Denies rash or skin lesions Neurologic: Denies headache, focal weakness or sensory changes All other systems were reviewed and found to be within normal limits, except as documented in this note. Current Medications Current Medications Current Medications Medications (Trade) Dose Ordered Sig/Aman Start Time Stop Time Status Last Admin Dose Admin Albuterol/ Ipratropium (Duoneb) 3 ml 1X ONCE 04/26/21 11:15 04/26/21 11:19 DC 04/26/21 11:25 3 ML Dexamethasone Sodium Phosphate (Decadron) 6 mg 1X ONCE 04/26/21 11:15 04/26/21 11:19 DC 04/26/21 11:26 6 MG Allergies Allergies Allergies Coded Allergies Type Severity Reaction Last Updated Verified cephalexin Allergy Intermediate 04/12/21 Yes codeine Allergy Intermediate 04/12/21 Yes Physical Exam Physical Exam Constitutional: Well developed, well nourished, no acute distress, non-toxic appearance. HENT: Normocephalic, atraumatic, bilateral external ears normal, mucosa moist, nose normal. Eyes: EOMI, conjunctiva normal, no discharge. Neck: Normal range of motion, supple, no stridor, no meningeal signs. Cardiovascular: Tachycardic rate at about 110 with an irregularly irregular rhythm. Lungs & Thorax: Scattered wheezes bilaterally with overall diminished breath sounds and air exchange. Abdomen: Soft, no tenderness or obvious masses Skin: Warm, dry, no erythema, no rash. Extremities: No tenderness, no cyanosis, no clubbing, ROM intact, no edema. Neurologic: Alert and oriented, normal motor function, normal sensory function, no focal deficits noted. Psychologic: Affect normal, judgement normal, mood normal. Current Patient Data Vital Signs Vital Signs Date Time Temp Pulse Resp B/P (MAP) Pulse Ox O2 Delivery O2 Flow Rate FiO2 04/26/21 12:00 108 186/82 (116) 92 Nasal Cannula 4.0 04/26/21 11:19 98.2 24 98.2 Lab Values Laboratory Tests Test 04/26/21 11:13 04/26/21 11:20 04/26/21 11:30 White Blood Count 8.9 x10^3/uL (4.0-11.0) Red Blood Count 3.57 x10^6/uL (3.50-5.40) Hemoglobin 9.0 g/dL (12.0-15.5) L Hematocrit 28.5 % (36.0-47.0) L Mean Corpuscular Volume 80 fL (79-100) Mean Corpuscular Hemoglobin 25 pg (25-35) Mean Corpuscular Hemoglobin Concent 32 g/dL (31-37) Red Cell Distribution Width 16.1 % (11.5-14.5) H Platelet Count 391 x10^3/uL (140-400) Neutrophils (%) (Auto) 88 % (31-73) H Lymphocytes (%) (Auto) 5 % (24-48) L Monocytes (%) (Auto) 6 % (0-9) Eosinophils (%) (Auto) 1 % (0-3) Basophils (%) (Auto) 1 % (0-3) Neutrophils # (Auto) 7.8 x10^3/uL (1.8-7.7) H Lymphocytes # (Auto) 0.5 x10^3/uL (1.0-4.8) L Monocytes # (Auto) 0.5 x10^3/uL (0.0-1.1) Eosinophils # (Auto) 0.1 x10^3/uL (0.0-0.7) Basophils # (Auto) 0.0 x10^3/uL (0.0-0.2) Sodium Level 142 mmol/L (136-145) Potassium Level 3.6 mmol/L (3.5-5.1) Chloride Level 105 mmol/L (98-107) Carbon Dioxide Level 27 mmol/L (21-32) Anion Gap 10 (6-14) Blood Urea Nitrogen 18 mg/dL (7-20) Creatinine 1.2 mg/dL (0.6-1.0) H Estimated GFR (Cockcroft-Gault) 43.3 BUN/Creatinine Ratio 15 (6-20) Glucose Level 200 mg/dL (70-99) H Lactic Acid Level 1.8 mmol/L (0.4-2.0) Calcium Level 8.3 mg/dL (8.5-10.1) L Magnesium Level 1.6 mg/dL (1.8-2.4) L Total Bilirubin 0.3 mg/dL (0.2-1.0) Aspartate Amino Transferase (AST) 18 U/L (15-37) Alanine Aminotransferase (ALT) 15 U/L (14-59) Alkaline Phosphatase 181 U/L (46-116) H Troponin I High Sensitivity 37 ng/L (4-50) OB-Pot-D-Type Natriuretic Peptide 9630 pg/mL (0-449) H Total Protein 6.5 g/dL (6.4-8.2) Albumin 2.8 g/dL (3.4-5.0) L Albumin/Globulin Ratio 0.8 (1.0-1.7) L Lipase 95 U/L (73-393) Prothrombin Time 14.3 SEC (11.7-14.0) H Prothrombin Time INR 1.1 (0.8-1.1) Activated Partial Thromboplast Time 26 SEC (24-38) D-Dimer (Silvia) ug/mlFEU (0.00-0.50) Influenza Type A Antigen Negative (NEGATIVE) Influenza Type B Antigen Negative (NEGATIVE) SARS-CoV-2 Antigen (Rapid) Negative (NEGATIVE) Laboratory Tests 04/26/21 11:13 Laboratory Tests 04/26/21 11:13 EKG EKG [] Interpretation Time: Twelve-lead EKG demonstrates atrial fibrillation with an overall rate of 113. QRS and QT corrected intervals are 88 and [address] segment elevation or depression other than borderline depression in V4 through V6. Good R wave progression, normal axis. Radiology/Procedures Radiology/Procedures []PATIENT: MANUEL EMANUEL: [id number]#: [id number] : 1940 LOCATION: ER AGE: 80 SEX: F EXAM STATUS: REG ER ORD. PHYSICIAN: VERONICA KANG MD REASON: dyspnea PROCEDURE: CHEST AP ONLY Single view chest dated 04/26/2021 11:32 AM: COMPARISON: 08/27/2016 Clinical Indication: Dyspnea. Findings: Single upright portable exam of the chest was performed. Heart and mediastinal contours are stable. There is patchy bilateral airspace disease with prominent interstitial markings, new from prior study. No pleural effusion. No pneumothorax. IMPRESSION: Bilateral airspace disease, edema versus atypical pneumonia. Electronically signed by: Parag Velasquez MD (04/26/2021 11:33 AM) [id number] DICTATED and SIGNED BY: PARAG VELASQUEZ MD DATE: 04/26/21 [id number] 0 Course & Med Decision Making Course & Med Decision Making Pertinent Labs and Imaging studies reviewed. (See chart for details) [] There is a 80-year-old female with dyspnea. On work-up she has a hemoglobin of 9.0 and a BNP of 9630. She is also in atrial fibrillation on her EKG, I do not see any old history of A. fib on her records. Initial rate was about 120 but rate has now come down to approximately 100. We have held off on giving her any rate control medications and we will also hold off on anticoagulation until we can verify that her hemoglobin is stable. I spoke with her primary care physician who like to keep her in the hospital for further work-up and management, patient is in stable but guarded condition at this time. Dragon Disclaimer Dragon Disclaimer This electronic medical record was generated, in whole or in part, using a voice recognition dictation system. Departure Departure Impression: Primary Impression: Dyspnea Additional Impressions: A-fib CHF (congestive heart failure) Anemia Disposition: ADMITTED INPATIENT Condition: GUARDED Referrals: ROBBI CALDERON (PCP) Problem Qualifiers VERONICA KANG MD Apr 26, 2021 11:40
[2021-04-26 11:47] LABS: PROTHROMBIN TIME PATIENT 14.3 SEC (11.7-14.0)
[2021-04-26 11:51] LABS: CALCIUM 8.3 mg/dL (8.5-10.1); CREATININE 1.2 mg/dL (0.6-1.0); GFR 43.3; POTASSIUM 3.6 mmol/L (3.5-5.1)
[2021-04-26 11:57] LABS: ALBUMIN 2.8 g/dL (3.4-5.0); ALBUMIN/GLOBULIN RATIO 0.8 (1.0-1.7); MAGNESIUM 1.6 mg/dL (1.8-2.4); TOTAL BILIRUBIN 0.3 mg/dL (0.2-1.0); TOTAL PROTEIN 6.5 g/dL (6.4-8.2)
[2021-04-26 12:02] LABS: INFLUENZA A PATIENT NEGATIVE (NEGATIVE); INFLUENZA B PATIENT NEGATIVE (NEGATIVE)
[2021-04-26] MEDS ORDERED: MORPHINE SULFATE 2 MG/ML INJ. ONE (13:45)
[2021-04-26] MEDS ORDERED: FUROSEMIDE 40 MG/4 ML VIAL. IVP ONE (13:45)
[2021-04-26] MEDS ORDERED: MORPHINE SULFATE 4 MG/ML INJ. IVP ONE (13:45)
[2021-04-26] MEDS ORDERED: ONDANSETRON PF 4 MG/2 ML VIAL. IVP PRN (13:45)
[2021-04-26] MEDS: MORPHINE SULFATE 2 MG/ML INJ. IVP PRN ×2 (13:46→16:11)
[2021-04-26 15:00] VITALS: BP 177/89
[2021-04-26] MEDS ORDERED: METF10007 PO (16:22)
[2021-04-26] MEDS: metFORMIN 500 MG TABLET PO SCH (17:00)
[2021-04-26] MEDS ORDERED: DEXTROSE 50% 25 GM / 50ML DISP.SYRIN. IV PRN (17:00)
[2021-04-26] MEDS ORDERED: IV DEXTROSE 5% 250 ML BAG. IV PRN (17:00)
[2021-04-26] MEDS: INSULIN LISPRO 300 UNITS/3 ML VIAL. SQ SCH (18:02)
[2021-04-26 18:42] VITALS: BP 154/67
--- NOTE | 2021-04-26 18:55 | EKG ---
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
[2021-04-26] MEDS ORDERED: MAGNESIUM SULFATE 2GM 50 ML IV ONE (20:00)
[2021-04-26] MEDS: HYDROXYCHLOROQUINE 200 MG TABLET PO SCH (22:04)
[2021-04-26] MEDS: LISINOPRIL 20 MG TABLET PO SCH (22:04)
[2021-04-26] MEDS: MIRTAZAPINE 15 MG TABLET PO SCH (22:04)
[2021-04-26] MEDS: OXYBUTYNIN CHLORIDE 5 MG TABLET PO SCH (22:04)
[2021-04-26 23:40] VITALS: BP 151/68
[2021-04-27 03:30] VITALS: BP 151/79
[2021-04-27 05:16] LABS: BASO % 0 % (0-3); EOS % 0 % (0-3); HEMATOCRIT 25.8 % (36.0-47.0); HEMOGLOBIN 8.1 g/dL (12.0-15.5); LYMPH # 0.9 x10^3/uL (1.0-4.8); LYMPH % 14 % (24-48); MEAN CORPUSCULAR HEMOGLOBIN 25 pg (25-35); MEAN CORPUSCULAR HGB CONC 31 g/dL (31-37); MEAN CORPUSCULAR VOLUME 79 fL (79-100); MONO # 0.6 x10^3/uL (0.0-1.1); MONO % 10 % (0-9); NEUT # 4.8 x10^3/uL (1.8-7.7); NEUT % 75 % (31-73); PLATELET COUNT 345 x10^3/uL (140-400); RED BLOOD COUNT 3.25 x10^6/uL (3.50-5.40); RED CELL DISTRIBUTION WIDTH 16.3 % (11.5-14.5); WHITE BLOOD COUNT 6.4 x10^3/uL (4.0-11.0)
[2021-04-27 05:35] LABS: CALCIUM 8.4 mg/dL (8.5-10.1); CREATININE 1.4 mg/dL (0.6-1.0); GFR 36.3; MAGNESIUM 2.3 mg/dL (1.8-2.4); POTASSIUM 3.4 mmol/L (3.5-5.1)
[2021-04-27] MEDS: PANTOPRAZOLE 40 MG TABLET.DR. PO SCH (05:46)
[2021-04-27 07:00] VITALS: BP 190/83
[2021-04-27] MEDS: INSULIN LISPRO 300 UNITS/3 ML VIAL. SQ SCH ×3 (08:00→17:00)
[2021-04-27] MEDS: MAGNESIUM OXIDE 400 MG TABLET PO SCH (09:00)
[2021-04-27] MEDS: metFORMIN 500 MG TABLET PO SCH ×2 (09:18→17:16)
[2021-04-27] MEDS: FERROUS SULFATE 325 MG TABLET. PO SCH (09:18)
[2021-04-27] MEDS: HYDROXYCHLOROQUINE 200 MG TABLET PO SCH ×2 (09:18→20:56)
[2021-04-27] MEDS: CYANOCOBALAMIN (VITAMIN B-12) 1,000 MCG TABLET. PO SCH (09:18)
[2021-04-27] MEDS: OXYBUTYNIN CHLORIDE 5 MG TABLET PO SCH ×3 (09:18→20:56)
[2021-04-27] MEDS: LISINOPRIL 20 MG TABLET PO SCH ×2 (09:19→20:56)
[2021-04-27] MEDS: ARIPiprazole 5 MG TABLET PO SCH (09:19)
[2021-04-27] MEDS: FLUoxetine HCL 20 MG CAPSULE PO SCH (09:19)
[2021-04-27] MEDS: ASPIRIN CHEWABLE 81 MG TABLET. PO SCH (09:19)
[2021-04-27] MEDS: MAGNESIUM CITRATE 296 ML SOLUTION. PO PRN (09:21)
[2021-04-27] MEDS: POLYETHYLENE GLYCOL 3350 17 GM PACKET. PO PRN (09:23)
--- NOTE | 2021-04-27 10:58 | PDOC2 ---
MARY RUDD COLLECTION DEVELOPMENT LIBRARIAN 04/27/21 1058: CARDIAC CONSULT DATE OF CONSULT Date of Consult DATE: 04/27/21 TIME: 10:53 REASON FOR CONSULT Reason for Consult: CHF REFERRING PHYSICIAN Referring Physician: Dr. Baldwin SOURCE Source: Chart review, Patient HISTORY OF PRESENT ILLNESS HISTORY OF PRESENT ILLNESS This is a 80 yo female who presented from [place] secondary to shortness of breath. Has been short of breath for the last day or so. Reports productive cough with yellow sputum. No fevers. Also reports some tightness in her chest and some mild LE edema. No palpitations, dizziness, diaphoresis, or nausea/vomiting. Symptoms have improved s/p IV diuresis. Think she may have had CHF diagnosed years ago. 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 PAST MEDICAL HISTORY Cardiovascular: CHF, HTN GI: GERD Psych: Depression Rheumatologic: Rheumatoid arthritis Endocrine: Diabetes PAST SURGICAL HISTORY Past Surgical History: Appendectomy, Cholecystectomy, Cataract Removal, Tonsillectomy, Hysterectomy, Other (AAA endograft repair 2011, sacroplasty ) FAMILY HISTORY Family History: Hypertension SOCIAL HISTORY Smoke: Quit ALCOHOL: none Drugs: None CURRENT MEDICATIONS CURRENT MEDICATIONS Current Medications Medications (Trade) Dose Ordered Sig/Aamn Route PRN Reason Start Time Stop Time Status Last Admin Dose Admin Albuterol/ Ipratropium (Duoneb) 3 ml 1X ONCE NEB 04/26/21 11:15 04/26/21 11:19 DC 04/26/21 11:25 Dexamethasone Sodium Phosphate (Decadron) 6 mg 1X ONCE IVP 04/26/21 11:15 04/26/21 11:19 DC 04/26/21 11:26 Furosemide (Lasix) 40 mg 1X ONCE IVP 04/26/21 13:45 04/26/21 13:46 DC 04/26/21 13:44 Morphine Sulfate (Morphine Sulfate) 2 mg PRN Q2HR PRN IVP PAIN 04/26/21 13:45 04/27/21 13:44 04/26/21 16:11 Insulin Human Lispro (HumaLOG) 0-7 UNITS TIDWMEALS SQ 04/26/21 17:00 04/26/21 18:02 Polyethylene Glycol (miraLAX PACKET) 17 gm PRN DAILY PRN PO CONSTIPATION 04/26/21 17:00 04/27/21 09:23 Aripiprazole (Abilify) 5 mg DAILY PO 04/27/21 09:00 04/27/21 09:19 Aspirin (Aspirin Chewable) 81 mg DAILY PO 04/27/21 09:00 04/27/21 09:19 Ferrous Sulfate (Feosol) 325 mg DAILY PO 04/27/21 09:00 04/27/21 09:18 Hydroxychloroquine Sulfate (Plaquenil) 200 mg BID PO 04/26/21 21:00 04/27/21 09:18 Lisinopril (Prinivil) 20 mg BID PO 04/26/21 21:00 04/27/21 09:19 Mirtazapine (Remeron) 7.5 mg QHS PO 04/26/21 21:00 04/26/21 22:04 Cyanocobalamin (Vitamin B-12) 1,000 mcg DAILY PO 04/27/21 09:00 04/27/21 09:18 Fluoxetine HCl (PROzac) 40 mg DAILY PO 04/27/21 09:00 04/27/21 09:19 Metformin HCl (Glucophage) 1,000 mg BIDWMEALS PO 04/26/21 17:00 04/27/21 09:18 Pantoprazole Sodium (Protonix) 40 mg DAILYAC PO 04/27/21 07:30 04/27/21 05:46 Oxybutynin Chloride (Ditropan) 5 mg [id number] PO 04/26/21 21:00 04/27/21 09:18 Magnesium Sulfate 50 ml @ 25 mls/hr 1X ONCE IV 04/26/21 20:00 04/26/21 21:59 DC 04/26/21 22:03 ALLERGIES ALLERGIES: Coded Allergies: cephalexin (Verified Allergy, Intermediate, 04/12/21) codeine (Verified Allergy, Intermediate, 04/12/21) ROS Review of System 14 point ROS conducted with pertinent positives noted above in HPI PHYSICAL EXAM General: Alert, Oriented X3, Cooperative, No acute distress HEENT: Atraumatic Lungs: Other (diminished bases) Heart: Regular rate (SR/SA) Abdomen: Soft Extremities: Other (trace pedal edema ) Skin: No significant lesion Neuro: Normal speech, Sensation intact Psych/Mental Status: Mental status NL, Mood NL MUSCULOSKELETAL: Osteoarthritic changes both hands VITALS/I&O VITALS/I&O: Vital Signs Date Time Temp Pulse Resp B/P (MAP) Pulse Ox O2 Delivery O2 Flow Rate FiO2 04/27/21 09:19 87 190/83 04/27/21 08:00 Nasal Cannula 4.0 04/27/21 07:00 97.1 20 92 97.1 I & O 04/26/21 04/26/21 04/27/21 15:00 23:00 07:00 Intake Total 300 ml 50 ml Output Total 1200 ml 500 ml Balance -900 ml -450 ml LABS Lab: Laboratory Tests Test 04/26/21 11:13 04/26/21 11:20 04/26/21 11:30 04/26/21 16:48 White Blood Count 8.9 x10^3/uL (4.0-11.0) Red Blood Count 3.57 x10^6/uL (3.50-5.40) Hemoglobin 9.0 g/dL (12.0-15.5) L Hematocrit 28.5 % (36.0-47.0) L Mean Corpuscular Volume 80 fL (79-100) Mean Corpuscular Hemoglobin 25 pg (25-35) Mean Corpuscular Hemoglobin Concent 32 g/dL (31-37) Red Cell Distribution Width 16.1 % (11.5-14.5) H Platelet Count 391 x10^3/uL (140-400) Neutrophils (%) (Auto) 88 % (31-73) H Lymphocytes (%) (Auto) 5 % (24-48) L Monocytes (%) (Auto) 6 % (0-9) Eosinophils (%) (Auto) 1 % (0-3) Basophils (%) (Auto) 1 % (0-3) Neutrophils # (Auto) 7.8 x10^3/uL (1.8-7.7) H Lymphocytes # (Auto) 0.5 x10^3/uL (1.0-4.8) L Monocytes # (Auto) 0.5 x10^3/uL (0.0-1.1) Eosinophils # (Auto) 0.1 x10^3/uL (0.0-0.7) Basophils # (Auto) 0.0 x10^3/uL (0.0-0.2) Sodium Level 142 mmol/L (136-145) Potassium Level 3.6 mmol/L (3.5-5.1) Chloride Level 105 mmol/L (98-107) Carbon Dioxide Level 27 mmol/L (21-32) Anion Gap 10 (6-14) Blood Urea Nitrogen 18 mg/dL (7-20) Creatinine 1.2 mg/dL (0.6-1.0) H Estimated GFR (Cockcroft-Gault) 43.3 BUN/Creatinine Ratio 15 (6-20) Glucose Level 200 mg/dL (70-99) H Lactic Acid Level 1.8 mmol/L (0.4-2.0) Calcium Level 8.3 mg/dL (8.5-10.1) L Magnesium Level 1.6 mg/dL (1.8-2.4) L Total Bilirubin 0.3 mg/dL (0.2-1.0) Aspartate Amino Transferase (AST) 18 U/L (15-37) Alanine Aminotransferase (ALT) 15 U/L (14-59) Alkaline Phosphatase 181 U/L (46-116) H Troponin I High Sensitivity 37 ng/L (4-50) TX-Wwv-V-Type Natriuretic Peptide 9630 pg/mL (0-449) H Total Protein 6.5 g/dL (6.4-8.2) Albumin 2.8 g/dL (3.4-5.0) L Albumin/Globulin Ratio 0.8 (1.0-1.7) L Lipase 95 U/L (73-393) Prothrombin Time 14.3 SEC (11.7-14.0) H Prothrombin Time INR 1.1 (0.8-1.1) Activated Partial Thromboplast Time 26 SEC (24-38) D-Dimer (Silvia) ug/mlFEU (0.00-0.50) Influenza Type A Antigen Negative (NEGATIVE) Influenza Type B Antigen Negative (NEGATIVE) SARS-CoV-2 Antigen (Rapid) Negative (NEGATIVE) Glucose (Fingerstick) 227 mg/dL (70-99) H Test 04/26/21 20:30 04/27/21 04:20 04/27/21 08:54 Glucose (Fingerstick) 204 mg/dL (70-99) H 133 mg/dL (70-99) H White Blood Count 6.4 x10^3/uL (4.0-11.0) Red Blood Count 3.25 x10^6/uL (3.50-5.40) L Hemoglobin 8.1 g/dL (12.0-15.5) L Hematocrit 25.8 % (36.0-47.0) L Mean Corpuscular Volume 79 fL (79-100) Mean Corpuscular Hemoglobin 25 pg (25-35) Mean Corpuscular Hemoglobin Concent 31 g/dL (31-37) Red Cell Distribution Width 16.3 % (11.5-14.5) H Platelet Count 345 x10^3/uL (140-400) Neutrophils (%) (Auto) 75 % (31-73) H Lymphocytes (%) (Auto) 14 % (24-48) L Monocytes (%) (Auto) 10 % (0-9) H Eosinophils (%) (Auto) 0 % (0-3) Basophils (%) (Auto) 0 % (0-3) Neutrophils # (Auto) 4.8 x10^3/uL (1.8-7.7) Lymphocytes # (Auto) 0.9 x10^3/uL (1.0-4.8) L Monocytes # (Auto) 0.6 x10^3/uL (0.0-1.1) Eosinophils # (Auto) 0.0 x10^3/uL (0.0-0.7) Basophils # (Auto) 0.0 x10^3/uL (0.0-0.2) Sodium Level 142 mmol/L (136-145) Potassium Level 3.4 mmol/L (3.5-5.1) L Chloride Level 104 mmol/L (98-107) Carbon Dioxide Level 30 mmol/L (21-32) Anion Gap 8 (6-14) Blood Urea Nitrogen 23 mg/dL (7-20) H Creatinine 1.4 mg/dL (0.6-1.0) H Estimated GFR (Cockcroft-Gault) 36.3 Glucose Level 127 mg/dL (70-99) H Calcium Level 8.4 mg/dL (8.5-10.1) L Magnesium Level 2.3 mg/dL (1.8-2.4) Laboratory Tests 04/26/21 11:13 04/27/21 04:20 Laboratory Tests 04/26/21 11:13 04/27/21 04:20 ASSESSMENT/PLAN ASSESSMENT/PLAN 1. Acute on chronic probable diastolic CHF; improved s/p IV diuresis 2. Accelerated hypertension; labile. ? pain contributing 3 . Diabetes, II 4. MARIO 5. Hypokalemia 6. Anemia 7. S/p recent bilateral sacral insufficiency fractures s/p sacroplasty 8. Severe back pain with T12 compression fracture Recommendations Echo to assess LV systolic function Further diuresis PRN Replace K Add amlodipine for BP control Supportive care TAMIKA GOTTI MD 04/27/21 1713: CARDIAC CONSULT ASSESSMENT/PLAN ASSESSMENT/PLAN The patient was seen and interviewed as well as examined at the bedside. The chart was reviewed. The case was discussed. Agree with the plan of care. MARY RUDD APRN Apr 27, 2021 10:58 TAMIAK GOTTI MD Apr 27, 2021 17:13
[2021-04-27 11:00] VITALS: BP 151/74
--- NOTE | 2021-04-27 11:10 | HP ---
DATE OF SERVICE: 04/27/2021 ADMIT DATE: 04/26/2021 HISTORY OF PRESENT ILLNESS: The patient is a 80-year-old female patient, a resident at [facility] and [facility], who was brought to the Emergency Room of [facility] with a complaint of shortness of breath that started on the day of admission. She also complained that she had a cough productive of yellow sputum, but has not had a fever. She did complain of chest tightness with chest pressure. This does not radiate and does not have any associated nausea, vomiting, diaphoresis, abdominal pain. She is on 2 liters of oxygen at baseline. She also continued to complain of low back pain that gets better at rest, but become extremely worse with any movement. She did undergo sacroplasty on her admission on 04/12; however, despite that, she continued to have severe back pain and she does have a T12 compression fracture. She was extensively investigated in the Emergency Room of [facility] and has had lab work that showed that she has normochromic normocytic anemia. Her chemistry also showed that she has chronic kidney disease. Her BNP was high at 9630 and that she has hypomagnesemia and hypoalbuminemia. Her D-dimer was ordered, but was not measured for some reason. Her influenza A and B were negative and SARS-CoV-2 antigen rapid testing was negative and did have a chest x-ray, which showed a single upright portable exam of the chest performed. Heart and mediastinal contours are stable. There are patchy bilateral airspace disease with prominence interstitial marking new from prior study. No pleural effusion or pneumothorax. The impression is the patient has bilateral airspace disease, edema versus atypical pneumonia and the patient was treated, had replacement of her magnesium, treated with IV Lasix and was started on albuterol as well as dexamethasone. I did consult the farm loan representative and also interventional radiologist as she might require a vertebroplasty. She continued to have severe pain. PAST MEDICAL HISTORY: Significant for hypertension, pneumonia, gastroesophageal reflux disease, rheumatoid arthritis, type 2 diabetes mellitus and recurrent urinary tract infection. PAST SURGICAL HISTORY: Significant for appendectomy, cholecystectomy, bilateral cataract extraction, tonsillectomy, hysterectomy and abdominal aortic repair with endograft in 2012. FAMILY HISTORY: Positive for hypertension. SOCIAL HISTORY: She is currently a resident at [facility] and [facility]. She does not smoke, drink alcohol or recreational drugs. ALLERGIES: SHE IS ALLERGIC TO CEPHALEXIN AND CODEINE. MEDICATIONS: She is currently on the following medications: She is on hydroxychloroquine 200 mg twice a day, ferrous sulfate 325 mg once a day, lisinopril 20 mg twice a day, aspirin 81 mg once a day, oxycodone/APAP 5/325 one tablet every 6 hours, fluoxetine 40 mg once a day, mirtazapine 7.5 mg at bedtime, aripiprazole 5 mg once a day, magnesium oxide 400 mg daily, omeprazole 40 mg once a day, metformin 1000 mg twice a day, Trulicity 1.5 mg subcutaneous once a week, VESIcare 10 mg once a day, cyanocobalamin 1000 mcg tablet extended release 1 tablet once a day. REVIEW OF SYSTEMS: As per history of present illness. PHYSICAL EXAMINATION: GENERAL: On arrival to the Emergency Room, the patient was clearly tachypneic, tachycardic, pale, not jaundiced, cyanosed or thyromegaly. No jugular venous distention. No lower limb edema. VITAL SIGNS: Her heart rate was 110, blood pressure was 163/98, temperature was 98.2, respiratory rate was 24 and oxygen saturation was 95% on 4 liters of oxygen. HEAD, EYES, EARS, NOSE, AND THROAT: Showed normocephalic, atraumatic. NECK: Supple. HEART: Showed normal first and second heart sounds. No gallop, rub or murmur. CHEST: Shows central trachea, equal bilateral chest expansion, air entry, vesicular breath sounds with bilateral basal crepitation posteriorly. I could not appreciate any rhonchi. ABDOMEN: Distended, soft, nontender. NEUROLOGIC: She is awake, alert, responding appropriately. All her cranial nerves intact. She moves upper extremities to much good extent than lower extremities that she has severe back pain. LABORATORY DATA: On arrival showed a white cell count of 8900, hemoglobin 9, hematocrit 28.5, MCV 80 and platelet count of 391,000. Her chemistry showed that her serum sodium was 142, potassium 3.6, chloride 105, bicarbonate 27, anion gap of 10, BUN 18, creatinine 1.2. Estimated GFR was 43 mL per minute. Her glucose was 200, calcium was 8.3. Lactic acid was only 1.8 mmol per liter, magnesium was 1.6. Total bilirubin, AST, ALT, alkaline phosphatase were normal. Her troponin I high sensitivity was only 37. Beta natriuretic peptide was 9630. Total protein 6.5, albumin 2.8, and lipase was 95. Her prothrombin time was 14.3, INR 1.1, APTT was 26. ASSESSMENT AND PLAN: In summary, this is a 80-year-old female patient who was admitted with worsening shortness of breath, cough with yellowish sputum. She is afebrile. Her white cell count is normal. She was treated with IV Lasix and together with steroids as well as albuterol and Atrovent by nebulizer. We will continue all her medications. We will monitor as Trulicity is not available. We will continue metformin as well as started on sliding scale insulin before meals. Probably the patient has an acute on chronic congestive heart failure. She continued to have low back pain. I will repeat her CT scan of the lumbar spine and sacral area as she might require vertebroplasty. ALIA DR: Bruce TID: [id number]
[2021-04-27 11:19] LABS: CHOLESTEROL/HDL RATIO 3.6
--- NOTE | 2021-04-27 11:29 | PN ---
DATE: 04/27/2021 SUBJECTIVE: The patient is resting, slightly propped up in bed, continued to complain of some shortness of breath and cough that is mostly dry, continued to have low back pain that is worse with any movement, although her pain is mild when she is sitting still. PHYSICAL EXAMINATION: GENERAL: When I examined her today, she looked well and was clearly in no apparent respiratory distress. She is pale, but no jaundice, cyanosis. No lymphadenopathy, no thyromegaly, no jugular venous distention. No limb edema. VITAL SIGNS: Her heart rate was 87, blood pressure was 180/83, temperature was 97.1, respiratory rate 20, and oxygen saturation was 92% on 4 liters of oxygen. HEAD, EYES, EARS, NOSE, AND THROAT: She is normocephalic, atraumatic. NECK: Supple. HEART: Showed normal first and second heart sounds. No gallop, rub or murmur. CHEST: Showed central trachea, equal bilateral chest expansion, air entry, vesicular breath sounds with bilateral basal crepitation posteriorly. ABDOMEN: Distended, soft, nontender. NEUROLOGIC: She was awake, alert, responding appropriately. All cranial nerves are intact. She moves her upper extremities without difficulty. She is mostly bedbound. ASSESSMENT: Acute on chronic congestive heart failure. The patient was given Lasix yesterday and she is somewhat feeling much better. She has one set of cardiac enzyme that showed the troponin I high sensitivity was only 37, I will order another one. I did consult the broadband installer. I will repeat a chest x-ray. I also ordered a CT scan of the lumbar spine and meanwhile, we will continue with all other medication. I have consulted the interventional radiologist. We will discuss with the finding to see whether vertebroplasty of the T12 is something warranted. Meanwhile, I will order SCDs for DVT prophylaxis and PT/OT to evaluate and treat. NICOLAS/HAL DR: Bruce TID: [id number]
--- NOTE | 2021-04-27 11:51 | NUR ---
SS following for discharge planning. SS reviewed pt chart and discussed with pt RN. Pt admitted from [facility] retirement unit, ; fax [phone]. COVID19 negative on rapid test. Pt is currently requiring oxygen at three liters nasal canula. Discharge plan is currently to return to [facility] when ready for discharge. PT/OT orders requested. COVID19 PCR test ordered for placement. SS will continue to follow for discharge planning.
[2021-04-27] MEDS: oxyCODONE/APAP 5/325 1 TAB TABLET PO PRN ×2 (12:43→21:02)
--- NOTE | 2021-04-27 12:53 | NUR ---
PCR covid swab sent to lab 1240 04/27/21
--- NOTE | 2021-04-27 13:27 | RAD ---
XR CHEST 1V History: Worsening shortness of breath Comparison: 04/26/2021 Technique: Portable AP radiograph of the chest. Findings: The lungs are adequately inflated. There are bilateral airspace opacities, mildly less conspicuous th an comparison. Prominent interstitial pulmonary markings suggesting deanna B lines. No significant ple ural effusion. No pneumothorax. Enlarged cardiac silhouette. Calcifications of the aortic arch. Acute osseous abnormality. Soft tissues are unremarkable. Impression: 1. Findings consistent with pulmonary interstitial edema. Superimposed infection is not excluded. Ov erall lung opacities appear mildly improved from comparison. Electronically signed by: Esequiel Bauman MD (04/27/2021 1:24 PM) [id number]
[2021-04-27 15:00] VITALS: BP 157/70
[2021-04-27] MEDS ORDERED: POTASSIUM CHLORIDE 20 MEQ TABLET.ER. PO ONE (15:45)
--- NOTE | 2021-04-27 16:59 | RAD ---
EXAM: BONE SCINTIGRAPHY. HISTORY: Back pain, question T12 fracture. TECHNIQUE: Following the intravenous injection of 24.0 mCi of Tc-99m labeled methylene diphosphonate (MDP), delayed images of the anterior posterior and lateral chest were performed. Chest x-ray 04/26/2021 COMPARISON: CT lumbar spine 04/12/2021. FINDINGS: There is a hyperintense linear transverse activity at the T12 vertebral body. Normal excret ory urinary activity is seen. Hyperintense activity is present in the partially visualized sacrum. IMPRESSION: 1. Linear transverse increased activity in the T12 vertebral body consistent with acute compression f racture. 2. Partially visualized sacrum demonstrates hyperintense activity consistent with sacral insufficienc y fracture. Electronically signed by: Esequiel Bauman MD (04/27/2021 4:56 PM) [id number]
[2021-04-27 19:50] VITALS: BP 141/70
[2021-04-27] MEDS: MIRTAZAPINE 15 MG TABLET PO SCH (20:56)
[2021-04-27 22:45] VITALS: BP 157/72
[2021-04-28] VITALS (15 sets, daily range): BP systolic 125–194; BP diastolic 63–88
--- NOTE | 2021-04-28 03:34 | NUR ---
OXYGEN WAS ON 2 LITERS, INCREASED TO 4 LITERS DUE TO HER SATS WENT TO 80%. PT IS A MOUTH BREATHIER. LCRN
[2021-04-28 06:24] LABS: HEMATOCRIT 27.2 % (36.0-47.0); HEMOGLOBIN 8.5 g/dL (12.0-15.5); RED BLOOD COUNT 3.52 x10^6/uL (3.50-5.40); RED CELL DISTRIBUTION WIDTH 15.9 % (11.5-14.5); WHITE BLOOD COUNT 5.3 x10^3/uL (4.0-11.0)
[2021-04-28 06:44] LABS: ALBUMIN 2.7 g/dL (3.4-5.0); ALBUMIN/GLOBULIN RATIO 0.8 (1.0-1.7); CALCIUM 8.3 mg/dL (8.5-10.1); CREATININE 1.3 mg/dL (0.6-1.0); GFR 39.5; MAGNESIUM 2.1 mg/dL (1.8-2.4); POTASSIUM 3.9 mmol/L (3.5-5.1); TOTAL BILIRUBIN 0.2 mg/dL (0.2-1.0); TOTAL PROTEIN 6.3 g/dL (6.4-8.2)
--- NOTE | 2021-04-28 07:50 | PDOC ---
MARY RUDD ASSEMBLER BODY 04/28/21 0750: CARDIO Progress Notes Date and Time Date of Service 04/28/21 Time of Evaluation 1140 Vitals Vitals Vital Signs Date Time Temp Pulse Resp B/P (MAP) Pulse Ox O2 Delivery O2 Flow Rate FiO2 04/28/21 02:40 97.7 81 20 125/67 (86) 97 Nasal Cannula 3.0 97.7 Weight Weight [ ] Input and Output Intake and Output Intake and Output 04/28/21 07:00 Intake Total 500 ml Output Total 550 ml Balance -50 ml Intake Oral 500 ml Output Urine Total 550 ml Laboratory Labs Laboratory Tests Test 04/27/21 08:54 04/27/21 11:37 04/27/21 17:06 04/27/21 20:58 Glucose (Fingerstick) 133 mg/dL (70-99) 184 mg/dL (70-99) 102 mg/dL (70-99) 162 mg/dL (70-99) Test 04/28/21 05:35 White Blood Count 5.3 x10^3/uL (4.0-11.0) Red Blood Count 3.52 x10^6/uL (3.50-5.40) Hemoglobin 8.5 g/dL (12.0-15.5) Hematocrit 27.2 % (36.0-47.0) Mean Corpuscular Volume 77 fL (79-100) Mean Corpuscular Hemoglobin 24 pg (25-35) Mean Corpuscular Hemoglobin Concent 31 g/dL (31-37) Red Cell Distribution Width 15.9 % (11.5-14.5) Platelet Count 350 x10^3/uL (140-400) Sodium Level 139 mmol/L (136-145) Potassium Level 3.9 mmol/L (3.5-5.1) Chloride Level 104 mmol/L (98-107) Carbon Dioxide Level 27 mmol/L (21-32) Anion Gap 8 (6-14) Blood Urea Nitrogen 21 mg/dL (7-20) Creatinine 1.3 mg/dL (0.6-1.0) Estimated GFR (Cockcroft-Gault) 39.5 BUN/Creatinine Ratio 16 (6-20) Glucose Level 100 mg/dL (70-99) Calcium Level 8.3 mg/dL (8.5-10.1) Magnesium Level 2.1 mg/dL (1.8-2.4) Total Bilirubin 0.2 mg/dL (0.2-1.0) Aspartate Amino Transf (AST/SGOT) 17 U/L (15-37) Alanine Aminotransferase (ALT/SGPT) 10 U/L (14-59) Alkaline Phosphatase 163 U/L (46-116) VS-Ixw-U-Type Natriuretic Peptide 5625 pg/mL (0-449) Total Protein 6.3 g/dL (6.4-8.2) Albumin 2.7 g/dL (3.4-5.0) Albumin/Globulin Ratio 0.8 (1.0-1.7) Microbiology Micro Microbiology 04/26/21 Blood Culture - Preliminary, Resulted NO GROWTH AFTER 1 DAY Physical Exam HEENT: Neck Supple W Full Motion Chest: Symmetric LUNGS: Clear to Auscultation Assessment Assessment 1. Acute on chronic probable diastolic CHF; improved s/p IV diuresis. additional Lasix this morning 2. Accelerated hypertension; remains labile. Pain likely contributing to HTN 3. Diabetes, II 4. MARIO; Cr stable 5. Hypokalemia; replaced 6. Anemia 7. S/p recent bilateral sacral insufficiency fractures s/p sacroplasty 8. Severe back pain with T12 compression fracture; vertebroplasty planned 9. Arrhythmia; brief bursts of NSVT noted on tele. Otherwise, is SR. Mg 2.1, TSH WNL Recommendations Echo pending Increase amlodipine Hydralazine IV PRN Supportive care from a CV standpoint Consider low-dose metoprolol if patient continues to burst of tachycardia Justicifation of Admission Dx: Justifications for Admission: Justification of Admission Dx: Yes TAMIKA GOTTI MD 04/28/21 1633: CARDIO Progress Notes Plan Plan Patient seen and examined. Agree with above nurse practitioner note. No obvious cardiac pathology noted. Her echocardiogram is grossly unremarkable. Supportive care from a cardiac standpoint MARY RUDD APRN Apr 28, 2021 07:50 TAMIKA GOTTI MD Apr 28, 2021 16:33
[2021-04-28] MEDS: INSULIN LISPRO 300 UNITS/3 ML VIAL. SQ SCH ×3 (08:00→17:00)
[2021-04-28] MEDS: ARIPiprazole 5 MG TABLET PO SCH (09:00)
[2021-04-28] MEDS: ASPIRIN CHEWABLE 81 MG TABLET. PO SCH (09:00)
[2021-04-28] MEDS: HYDROXYCHLOROQUINE 200 MG TABLET PO SCH ×2 (09:00→20:31)
[2021-04-28] MEDS: FLUoxetine HCL 20 MG CAPSULE PO SCH (09:00)
[2021-04-28] MEDS: MAGNESIUM OXIDE 400 MG TABLET PO SCH (09:00)
[2021-04-28] MEDS: FERROUS SULFATE 325 MG TABLET. PO SCH (09:00)
[2021-04-28] MEDS: OXYBUTYNIN CHLORIDE 5 MG TABLET PO SCH ×4 (09:00→20:32)
[2021-04-28] MEDS: CYANOCOBALAMIN (VITAMIN B-12) 1,000 MCG TABLET. PO SCH (09:00)
[2021-04-28] MEDS: metFORMIN 500 MG TABLET PO SCH ×2 (09:01→17:46)
[2021-04-28] MEDS: PANTOPRAZOLE 40 MG TABLET.DR. PO SCH (09:02)
[2021-04-28] MEDS: LISINOPRIL 20 MG TABLET PO SCH ×2 (09:02→20:32)
[2021-04-28] MEDS ORDERED: FUROSEMIDE 20 MG/2 ML VIAL. IVP ONE (10:15)
[2021-04-28] MEDS ORDERED: MAGNESIUM CITRATE 296 ML SOLUTION. PO ONE (10:15)
--- NOTE | 2021-04-28 10:35 | PN ---
DATE: 04/28/2021 SUBJECTIVE: The patient is resting, slightly propped up in bed, in no apparent distress. She did complain of shortness of breath and cough is mostly dry, back pain and constipation. She did have a bone scan yesterday, which confirmed the fact that she has linear transverse increased activity in the T12 vertebral body consistent with acute compression fracture and she is apparently scheduled for vertebroplasty sometime this afternoon. She does have also partially visualized sacrum, demonstrating hyperintense activity consistent with sacral insufficiency fracture. PHYSICAL EXAMINATION: GENERAL: When I saw her today, she was pale, somewhat cachectic, but no jaundice, cyanosis or thyromegaly. No jugular venous distention. No limb edema. VITAL SIGNS: Her heart rate was 89, blood pressure was 190/90, temperature was 97.6, respiratory rate was 19, and oxygen saturation was 95% on 3 liters of oxygen. HEAD, EYES, EARS, NOSE, AND THROAT: Normocephalic, atraumatic. NECK: Supple. HEART: Showed normal first and second heart sounds. No gallop or murmur. CHEST: Shows central trachea, equal bilateral chest expansion, air entry, vesicular breath sounds with bilateral basal crepitation, more posteriorly. I could not appreciate any rhonchi. ABDOMEN: Scaphoid, soft, nontender. NEUROLOGIC: She is awake, alert, responding appropriately. Cranial nerves intact. She moves extremities without difficulty, although she is mostly bedbound. Her intake over the last 24 hours was 350, output was 1760. LABORATORY DATA: As of this morning, her white cell count was 5300, hemoglobin 8.5, hematocrit 27, MCV 77 and platelet count 350,000. Her chemistry showed a serum sodium 139, potassium 3.9, chloride 104, bicarbonate 27, anion gap of 8, BUN 21, creatinine 1.3. Estimated GFR was 39 mL per minute. Her glucose 100, calcium was 8.3, magnesium 2.1. Total bilirubin, AST, ALT were normal. Alkaline phosphatase were elevated. Her total protein was 6.3, albumin was 2.7. Her BNP was 5625. ASSESSMENT: 1. Acute probably on chronic, likely diastolic congestive heart failure, improving. 2. Severe osteoporosis with compression fracture of T12 and CT scan done on 05/10. I spoke with Dr. Farris yesterday who ordered bone scan, which confirmed the patient has T12 compression fracture for which she is scheduled for vertebroplasty. 3. She has bilateral sacral insufficiency fracture treated with sacroplasty last admission. 4. Narcotic-induced or opioid-induced constipation for which I started her on magnesium citrate. She also has acute hypoxic respiratory failure, likely due to diastolic heart failure as well as COPD. 5. Chronic obstructive pulmonary disease. The patient has been a smoker for a long time, quit in 2011. Other medical problems include hypertension, type 2 diabetes mellitus, gastroesophageal reflux disease, rheumatoid arthritis and recurrent urinary tract infection. The patient was given another 20 mg of IV Lasix. She was seen by the cardiology clinical nurse specialist. An echocardiogram was ordered results of which is still pending. Once she has had vertebroplasty, we will treat her constipation. We will order PT, OT and hopefully discharge her back to [facility] tomorrow. NESHA DR: Bruce TID: [id number]
[2021-04-28] MEDS ORDERED: LIDOCAINE WITH 8.4% SOD BICARB 3 ML DISP.SYRIN. ONE (13:20)
[2021-04-28] MEDS ORDERED: hydrALAZINE 20 MG/ML VIAL. IVP PRN (13:30)
[2021-04-28] MEDS ORDERED: MIDAZOLAM HCL/PF 2 MG/2 ML VIAL. ONE (13:32)
[2021-04-28] MEDS ORDERED: fentaNYL PF VIAL 100 MCG/2 ML VIAL ONE (13:32)
[2021-04-28] MEDS ORDERED: VANCOMYCIN 1 GM in IV NORMAL SALINE 250ML 250 ML IV ONE (13:45)
[2021-04-28] MEDS ORDERED: VANCOMYCIN 1GM IVPB FOR OMNI 250 ML IV ONE (13:45)
[2021-04-28] MEDS ORDERED: IOHEXOL 240 MG/ML 50ML VIAL. ONE (14:12)
[2021-04-28] MEDS ORDERED: CONTRAST GIVEN. MC PRN (14:30)
[2021-04-28] MEDS ORDERED: LIDOCAINE WITH 8.4% SOD BICARB 3 ML DISP.SYRIN. IJ ONE (14:30)
[2021-04-28] MEDS ORDERED: IOHEXOL 240 MG/ML 50ML VIAL. IJ ONE (14:30)
[2021-04-28] MEDS ORDERED: MIDAZOLAM HCL/PF 2 MG/2 ML VIAL. IV ONE (14:30)
[2021-04-28] MEDS ORDERED: fentaNYL PF VIAL 100 MCG/2 ML VIAL IV ONE (14:30)
--- NOTE | 2021-04-28 14:51 | NUR ---
SS following up with discharge planning. SS reviewed pt chart and discussed with pt RN. Pt is currently requiring oxygen at three liters nasal canula. COVID19 negative. PT/OT ordered. Pt had Vertebroplasty today. Pt is skilled rehabilitation resident from [place], ; fax [phone]. SS will continue to follow for discharge planning.
--- NOTE | 2021-04-28 16:03 | RAD ---
Procedure: Kyphoplasty of T12. Physicians: Dr. Farris. Clinical Indication: Adult female with debilitating osteoporotic compression fracture of T12 Sedation: Conscious sedation using a combination of Versed and fentanyl was provided for 50 minutes, including continuous monitoring of the patients heart rate, rhythm, blood pressure, oxygen saturation and level of arousability by a trained independent observer. Antibiotic: Immediately prior to initiation a procedural pause was conducted in the presence of the m embers of the treatment team to verify correct patient identity, correct procedure, correct side if a pplicable, correct patient position, availability of specialized equipment, review of patients allerg ies, and assessment of current level of consciousness and arousability. Sterility: All elements of maximal sterile barrier technique including the use of a cap, mask, steril e gown, sterile gloves, large sterile sheet, appropriate hand hygiene, and 2% chlorhexidine for cutan eous antisepsis (or acceptable alternative antiseptic per current guidelines) were followed for this procedure. Exposure: Kerma-Area Product: 273 mGycm2 Consent: The procedure was explained in its entirety to the patient or the patients designated repres entative by a member of the treatment team, including a discussion of the risks, benefits and commonl y accepted alternatives to the procedure, as well as the expected consequences of not performing the procedure. Discussion of the risks included, but was not limited to, those that are most frequent an d those that are rare but possibly severe or life-threatening, as well as the possibility of unforese en complications. Technique and Findings: Following informed consent, the patient was prepped and draped in the usual s terile fashion. 2% lidocaine was used to achieve local anesthesia over the paraspinal soft tissues. A small dermatotomy was made, and a 10-gauge kyphoplasty needle was advanced in a transpedicular fas hion to the junction of the anterior and middle one-third of the treated vertebral body. Once optimal ly positioned, a kyphoplasty balloon was placed coaxially and inflated under fluoroscopic control to create an intramedullary cavity. Polymethylmethacrylate was then introduced under fluoroscopic contr ol to fill the the cavity and interstices of the vertebral body. Upon completion, the needle was manny vijay and hemostasis was readily achieved with manual compression. The following levels were teated in this fashion: T12. The patient tolerated the procedure well and l eft the radiology department in stable condition. Impression: 1. Kyphoplasty of T12 as described. Electronically signed by: Thomas Farris MD (04/28/2021 4:00 PM) [id number]
[2021-04-28] MEDS: oxyCODONE/APAP 5/325 1 TAB TABLET PO PRN (17:07)
[2021-04-28] MEDS: MIRTAZAPINE 15 MG TABLET PO SCH (20:31)
[2021-04-29 02:50] VITALS: BP 150/67
[2021-04-29] MEDS: PANTOPRAZOLE 40 MG TABLET.DR. PO SCH (06:13)
[2021-04-29 06:37] LABS: ALBUMIN 2.5 g/dL (3.4-5.0); ALBUMIN/GLOBULIN RATIO 0.7 (1.0-1.7); CALCIUM 7.9 mg/dL (8.5-10.1); CREATININE 1.4 mg/dL (0.6-1.0); GFR 36.3; POTASSIUM 3.8 mmol/L (3.5-5.1); TOTAL BILIRUBIN 0.3 mg/dL (0.2-1.0); TOTAL PROTEIN 6.2 g/dL (6.4-8.2)
[2021-04-29 07:00] VITALS: BP 179/86
[2021-04-29] MEDS: INSULIN LISPRO 300 UNITS/3 ML VIAL. SQ SCH ×3 (08:00→16:42)
[2021-04-29] MEDS: HYDROXYCHLOROQUINE 200 MG TABLET PO SCH ×2 (08:41→20:17)
[2021-04-29] MEDS: CYANOCOBALAMIN (VITAMIN B-12) 1,000 MCG TABLET. PO SCH (08:41)
[2021-04-29] MEDS: ARIPiprazole 5 MG TABLET PO SCH (08:41)
[2021-04-29] MEDS: FERROUS SULFATE 325 MG TABLET. PO SCH (08:41)
[2021-04-29] MEDS: OXYBUTYNIN CHLORIDE 5 MG TABLET PO SCH ×3 (08:41→20:17)
[2021-04-29] MEDS: ASPIRIN CHEWABLE 81 MG TABLET. PO SCH (08:41)
[2021-04-29] MEDS: FLUoxetine HCL 20 MG CAPSULE PO SCH (08:42)
[2021-04-29] MEDS: LISINOPRIL 20 MG TABLET PO SCH ×2 (08:42→20:17)
[2021-04-29] MEDS: metFORMIN 500 MG TABLET PO SCH ×2 (08:42→17:00)
[2021-04-29] MEDS: MAGNESIUM OXIDE 400 MG TABLET PO SCH (08:42)
[2021-04-29 10:14] VITALS: BP 139/65
--- NOTE | 2021-04-29 11:19 | PDOC ---
MARY RUDD ENCAPSULATOR 04/29/21 1119: CARDIO Progress Notes Date and Time Date of Service 04/29/21 Time of Evaluation 1115 Subjective Subjective: No Chest Pain, No shortness of breath, No Palpitations Vitals Vitals Vital Signs Date Time Temp Pulse Resp B/P (MAP) Pulse Ox O2 Delivery O2 Flow Rate FiO2 04/29/21 10:14 97.5 82 16 139/65 (89) 93 Nasal Cannula 4.0 97.5 Weight Weight [ ] Input and Output Intake and Output Intake and Output 04/29/21 07:00 Intake Total 480 ml Output Total 400 ml Balance 80 ml Intake Oral 480 ml Output Urine Total 400 ml # Voids 2 Laboratory Labs Laboratory Tests Test 04/28/21 11:46 04/28/21 17:45 04/28/21 20:34 04/29/21 05:10 Glucose (Fingerstick) 145 mg/dL (70-99) 147 mg/dL (70-99) 168 mg/dL (70-99) Sodium Level 146 mmol/L (136-145) Potassium Level 3.8 mmol/L (3.5-5.1) Chloride Level 106 mmol/L (98-107) Carbon Dioxide Level 31 mmol/L (21-32) Anion Gap 9 (6-14) Blood Urea Nitrogen 20 mg/dL (7-20) Creatinine 1.4 mg/dL (0.6-1.0) Estimated GFR (Cockcroft-Gault) 36.3 BUN/Creatinine Ratio 14 (6-20) Glucose Level 115 mg/dL (70-99) Calcium Level 7.9 mg/dL (8.5-10.1) Total Bilirubin 0.3 mg/dL (0.2-1.0) Aspartate Amino Transf (AST/SGOT) 9 U/L (15-37) Alanine Aminotransferase (ALT/SGPT) 14 U/L (14-59) Alkaline Phosphatase 147 U/L (46-116) Total Protein 6.2 g/dL (6.4-8.2) Albumin 2.5 g/dL (3.4-5.0) Albumin/Globulin Ratio 0.7 (1.0-1.7) Test 04/29/21 08:00 Glucose (Fingerstick) 128 mg/dL (70-99) Microbiology Micro Microbiology 04/26/21 Blood Culture - Preliminary, Resulted NO GROWTH AFTER 2 DAYS Physical Exam HEENT: Neck Supple W Full Motion Chest: Symmetric LUNGS: Clear to Auscultation Heart: RRR Abdomen: Soft N/T Extremities: No Edema Neurology: alert, oriented, follow commands Assessment Assessment 1. Acute on chronic diastolic CHF; improved s/p IV diuresis. Echo with preserved LV systolic function 2. Accelerated hypertension; remains labile. 3. Diabetes, II 4. MARIO; Cr stable 5. Hypokalemia; replaced 6. Anemia 7. S/p recent bilateral sacral insufficiency fractures s/p sacroplasty 8. Severe back pain with T12 compression fracture; kyphoplasty planned today 9. Arrhythmia; brief bursts of NSVT noted on tele. Otherwise, is SR. Mg 2.1, TSH WNL Recommendations Titrate down O2 as able. Additional diuresis as warranted Hydralazine IV PRN Consider pulm consult given ongoing O2 Justicifation of Admission Dx: Justifications for Admission: Justification of Admission Dx: Yes TAMIKA GOTTI MD 04/29/21 1700: CARDIO Progress Notes Plan Plan The patient was seen and interviewed as well as examined at the bedside. The chart was reviewed. The case was discussed. Agree with the plan of care. Discussed with PCP and daughter at bedside MARY RUDD APRN Apr 29, 2021 11:19 TAMIKA GOTTI MD Apr 29, 2021 17:00
[2021-04-29] MEDS ORDERED: METHYLNALTREXONE 12 MG/0.6 ML VIAL. SQ ONE (13:15)
[2021-04-29 15:00] VITALS: BP 131/65
[2021-04-29] MEDS: oxyCODONE/APAP 5/325 1 TAB TABLET PO PRN (16:40)
[2021-04-29 19:11] VITALS: BP 165/84
--- NOTE | 2021-04-29 19:36 | PN ---
DATE: 04/29/2021 SUBJECTIVE: The patient is sitting comfortably in her chair, eating her lunch, in no apparent distress, continued to have some low back pain. She is off oxygen, but her oxygen saturation was down to 86% on room air. Therefore, we started back on oxygen. She did have her kyphoplasty done successfully yesterday and her pain is much less. PHYSICAL EXAMINATION: GENERAL: When I examined her, she was pale, not jaundiced or cyanosed, no lymphadenopathy, no thyromegaly, no jugular venous distention. No limb edema. VITAL SIGNS: Her heart rate was 82, blood pressure was 139/65, temperature 97.5, respiratory rate was 16, and oxygen saturation was 93% on 2 liters of oxygen by nasal cannula. HEAD, EYES, EARS, NOSE AND THROAT: Normocephalic, atraumatic. NECK: Supple. HEART: Showed normal first and second heart sounds. No gallop or murmur. CHEST: Clear to auscultation, no crepitation or rhonchi. ABDOMEN: Distended, soft, nontender. NEUROLOGIC: She is awake, alert, responding appropriately. All cranial nerves intact. She moves extremities without difficulty. She ambulates with a walker. Her intake was 500, output was 550. LABORATORY DATA: As of this morning, her white cell count was 5300, hemoglobin 8.5, hematocrit 27, MCV 77, and platelet count 350,000. Her chemistry showed a serum sodium 146, potassium 3.8, chloride 106, bicarbonate 31, anion gap of 9, BUN 20, creatinine 1.4, estimated GFR was 36 mL per minute, her glucose 115, calcium was 7.9. Total bilirubin, AST, ALT are normal. Alkaline phosphatase slightly elevated. Total protein 6.2, albumin 2.5. Her blood cultures showed no growth after 3 days. ASSESSMENT: 1. Acute probably on chronic, likely diastolic congestive heart failure, improved. In fact, the patient has been well diuresed. Her creatinine is up to 1.4 from 1.2. 2. Severe osteoporosis with compression fracture of T11 on CT scan done on . I spoke with Dr. Farris who ordered a bone scan, which confirmed the patient has T12 compression fracture, for which she underwent kyphoplasty successfully. 3. She has bilateral sacral insufficiency fracture, treated with sacroplasty last admission. 4. Narcotic-induced or opioid-induced constipation for which I started her on magnesium citrate. 5. Acute hypoxic respiratory failure, likely due to diastolic heart failure as well as chronic obstructive pulmonary disease. 6. Chronic obstructive pulmonary disease. The patient has been a smoker for a long time, quit in 2011. 7. Other medical problems include: A. Hypertension. B. Type 2 diabetes mellitus. C. Gastroesophageal reflux disease. D. Rheumatoid arthritis. E. Recurrent urinary tract infection. PLAN: To discontinue anymore form of diuresis. I will continue with Colace and MiraLax as well as mag citrate and I would also start Relistor. I will repeat her lab work and if kidney function improves tomorrow, I will order a CT angio of the chest. If there is no evidence of pulmonary embolism, the patient will be discharged back to continue rehabilitation process before she goes back to [facility]. LLOYD/MANDY DR: Bruce TID: [id number]
[2021-04-29] MEDS: MIRTAZAPINE 15 MG TABLET PO SCH (20:17)
[2021-04-29] MEDS ORDERED: FUROSEMIDE 20 MG/2 ML VIAL. IVP ONE (21:15)
[2021-04-29 22:20] VITALS: BP 152/68
[2021-04-30 02:52] VITALS: BP 170/79
[2021-04-30 05:16] LABS: CALCIUM 8.2 mg/dL (8.5-10.1); CREATININE 1.3 mg/dL (0.6-1.0); GFR 39.5; POTASSIUM 3.8 mmol/L (3.5-5.1)
[2021-04-30] MEDS: DOCUSATE SODIUM 100 MG CAPSULE. PO PRN ×2 (06:13→10:02)
[2021-04-30] MEDS: PANTOPRAZOLE 40 MG TABLET.DR. PO SCH (06:13)
[2021-04-30 07:00] VITALS: BP 189/92
[2021-04-30] MEDS: INSULIN LISPRO 300 UNITS/3 ML VIAL. SQ SCH ×3 (08:00→16:30)
[2021-04-30] MEDS: ARIPiprazole 5 MG TABLET PO SCH (09:05)
[2021-04-30] MEDS: metFORMIN 500 MG TABLET PO SCH (09:05)
[2021-04-30] MEDS: MAGNESIUM OXIDE 400 MG TABLET PO SCH (09:05)
[2021-04-30] MEDS: HYDROXYCHLOROQUINE 200 MG TABLET PO SCH ×2 (09:05→20:48)
[2021-04-30] MEDS: FERROUS SULFATE 325 MG TABLET. PO SCH (09:06)
[2021-04-30] MEDS: LISINOPRIL 20 MG TABLET PO SCH ×2 (09:07→20:50)
[2021-04-30] MEDS: FLUoxetine HCL 20 MG CAPSULE PO SCH (09:08)
[2021-04-30] MEDS: CYANOCOBALAMIN (VITAMIN B-12) 1,000 MCG TABLET. PO SCH (09:08)
[2021-04-30] MEDS: ASPIRIN CHEWABLE 81 MG TABLET. PO SCH (09:08)
[2021-04-30] MEDS: OXYBUTYNIN CHLORIDE 5 MG TABLET PO SCH ×3 (09:08→20:48)
[2021-04-30] MEDS: MAGNESIUM CITRATE 296 ML SOLUTION. PO PRN (10:02)
[2021-04-30 11:00] VITALS: BP 151/69
--- NOTE | 2021-04-30 11:15 | PDOC ---
MARY RUDD RATE SUPERVISOR 04/30/21 1115: CARDIO Progress Notes Date and Time Date of Service 04/30/21 Time of Evaluation 1115 Subjective Subjective: No Chest Pain, No shortness of breath, No Palpitations Vitals Vitals Vital Signs Date Time Temp Pulse Resp B/P (MAP) Pulse Ox O2 Delivery O2 Flow Rate FiO2 04/30/21 09:07 90 04/30/21 09:06 189/92 04/30/21 07:00 97.6 18 94 Nasal Cannula 3.0 97.6 Weight Weight [ ] Input and Output Intake and Output Intake and Output 04/30/21 07:00 Intake Total 540 ml Output Total 200 ml Balance 340 ml Intake Oral 540 ml Output Urine Total 200 ml # Voids 3 Laboratory Labs Laboratory Tests Test 04/29/21 11:32 04/29/21 16:40 04/29/21 20:16 04/30/21 04:40 Glucose (Fingerstick) 129 mg/dL (70-99) 119 mg/dL (70-99) 160 mg/dL (70-99) Sodium Level 143 mmol/L (136-145) Potassium Level 3.8 mmol/L (3.5-5.1) Chloride Level 105 mmol/L (98-107) Carbon Dioxide Level 32 mmol/L (21-32) Anion Gap 6 (6-14) Blood Urea Nitrogen 23 mg/dL (7-20) Creatinine 1.3 mg/dL (0.6-1.0) Estimated GFR (Cockcroft-Gault) 39.5 Glucose Level 125 mg/dL (70-99) Calcium Level 8.2 mg/dL (8.5-10.1) Test 04/30/21 08:15 Glucose (Fingerstick) 134 mg/dL (70-99) Microbiology Micro Microbiology 04/26/21 Blood Culture - Preliminary, Resulted NO GROWTH AFTER 3 DAYS Physical Exam HEENT: Neck Supple W Full Motion Chest: Symmetric LUNGS: Other (diminished bases) Heart: RRR Abdomen: Soft N/T Extremities: No Edema Neurology: alert, oriented, follow commands Assessment Assessment 1. Acute respiratory failure; continue to require O2 supplementation. On IV hydration for CTA chest today 2. Acute on chronic diastolic CHF; s/p IV diuresis. Echo with preserved LV systolic function 3. Accelerated hypertension; remains labile. 4. Diabetes, II 5. MARIO; Cr stable 6. Hypokalemia; replaced 7. Anemia 8. S/p recent bilateral sacral insufficiency fractures s/p sacroplasty 9. Severe back pain with T12 compression fracture; s/p kyphoplasty 10. Arrhythmia; brief bursts of NSVT noted on tele. Otherwise, is SR. Mg 2.1, TSH WNL Recommendations D/w pulmonary. Will diuresis more aggressively Monitor renal function closely Supportive care Justicifation of Admission Dx: Justifications for Admission: Justification of Admission Dx: Yes TAMIKA GOTTI MD 04/30/21 1721: CARDIO Progress Notes Plan Plan Pt. seen and examined. Agree with above IRON CASTER note. Supportive care. Discussed with Dr. Lock, continue aggressive diuresis. We will follow along closely. Consider RHC if needed. MARY RUDD APRN Apr 30, 2021 11:15 TAMIKA GOTTI MD Apr 30, 2021 17:21
[2021-04-30] MEDS ORDERED: SODIUM BICARBONATE VIAL 150 MEQ in IV STERILE WATER 1,000 ML IV SCH (12:00)
--- NOTE | 2021-04-30 12:49 | PN ---
DATE: 04/30/2021 SUBJECTIVE: The patient is resting, slightly propped up in bed, in no apparent respiratory distress. She continued to require oxygen at 3 liters to maintain her oxygen saturation around 94%. Her main complaint is constipation and we did treat her with MiraLax, Colace, mag citrate and even Relistor. She has a small bowel movement. She did have T12 kyphoplasty and her back pain is much better; however, she has hypoxia and therefore I arranged for her to have a CT angio of the chest. I spoke with the pharmacy technologist and he recommended rehydration before and after the procedure, so we did order 3 amps of sodium bicarbonate and 1 liter of sterile water to be started about 3 hours before and 3 hours after. PHYSICAL EXAMINATION: GENERAL: When I examined her this afternoon, she looked well, pale, not jaundiced or cyanosed. No lymphadenopathy, no thyromegaly, no jugular venous distention. No limb edema. VITAL SIGNS: Her heart rate was 90, blood pressure was 189/92, temperature 97.6, respiratory rate was 18 and oxygen saturation was 94% on 3 liters of oxygen. HEAD, EYES, EARS, NOSE, AND THROAT: Normocephalic, atraumatic. NECK: Supple. HEART: Normal first and second heart sounds. No gallop, rub or murmur. CHEST: Clear to auscultation, no crepitation or rhonchi. ABDOMEN: Scaphoid, soft, nontender. NEUROLOGIC: She is grossly intact. Her intake was 480, output was 400. LABORATORY DATA: Her most recent white cell count was 5300, hemoglobin 8.5, hematocrit 27, MCV 77 and platelet count 350,000. Her serum sodium was 143, potassium 3.8, chloride 105, bicarbonate 32, anion gap of 6, BUN 23, creatinine 1.3. Estimated GFR was 39 mL per minute. Her glucose 125 and calcium was 8.2. ASSESSMENT: 1. Acute probably on chronic, likely diastolic congestive heart failure, improved. In fact, the patient has been well diuresed. Her creatinine is up to 1.4 from 1.2. 2. Severe osteoporosis with compression fracture of T12 on CT scan done at the beginning of this month. Dr. Johnston recommended a bone scan, which confirmed that she has T12 compression fracture for which she underwent kyphoplasty successfully. Her back pain is much improved. 3. She has bilateral sacral insufficiency fracture, treated with sacroplasty on her last admission. 4. Opioid-induced constipation for which I did start her on magnesium citrate and ordered also Relistor. 5. Acute hypoxic respiratory failure, likely diastolic heart failure as well as chronic obstructive pulmonary disease and/or possible pulmonary emboli. 6. Chronic obstructive pulmonary disease. The patient has been a heavy smoker for a long time, quit in 2011. 7. Other medical problems include: A. Hypertension. B. Type 2 diabetes mellitus. C. Gastroesophageal reflux disease. D. Rheumatoid arthritis. E. Recurrent urinary tract infection. PLAN: To hold off on further diuresis, started on IV fluid in the form of bicarb drip at 100 mL per hour. Once we did a CT angio we will continue with IV fluid and obviously if she has pulmonary emboli will consult the business strategist for further management. Otherwise, if she has no pulmonary emboli and her kidney function remains stable, she can be discharged tomorrow to a senior care facility. KIERRA DR: Bruce TID: [id number]
--- NOTE | 2021-04-30 13:19 | CONS ---
DATE OF CONSULTATION: 04/30/2021 ATTENDING PHYSICIAN: Dr. Baldwin. REASON FOR CONSULTATION: Respiratory failure. HISTORY OF PRESENT ILLNESS: The patient is a 80-year-old female who has no significant tobacco use. She was hospitalized with worsening dyspnea. She had a cough with some yellow sputum production initially. The patient was treated with IV Lasix and steroids. The patient also had recently kyphoplasty. She is still getting IV fluids at 100 mL an hour. I have reviewed the patient's chest x-ray done on 04/26 and 04/27. They continued to show persistent interstitial edema. The patient's renal function initially had showed a creatinine of 1.4, it is down to 1.2; however, the patient still is dyspneic. She states she cannot do any activity even eating and feeding makes her fatigued and tired and dyspneic. She is currently requiring 3 liters of oxygen with saturation of 94%. She used to have more leg edema, but is now improving. The patient is 80 years old. Both the daughters are at the bedside. PAST MEDICAL HISTORY: Significant for history of hypertension and pneumonia, gastroesophageal reflux disease, history of rheumatoid arthritis. SURGICAL HISTORY: Including appendectomy, cholecystectomy, bilateral cataract extraction, tonsillectomy and hysterectomy. FAMILY HISTORY: Hypertension. SOCIAL HISTORY: She is a resident at [facility]. No history of significant tobacco use. ALLERGIES: CEPHALEXIN, CODEINE. MEDICATIONS: Reviewed as listed in the MRAD. REVIEW OF SYSTEMS: Twelve-point review of system obtained. Pertinent positives discussed in my present illness, otherwise noncontributory. All systems that were negative were reviewed as well. PHYSICAL EXAMINATION: VITAL SIGNS: Reviewed. Blood pressure is 189/92. Pulse ox is 94% on 3 liters, afebrile. NECK: Supple. LUNGS: With crackles at the bases. CARDIOVASCULAR: With a regular rate. ABDOMEN: Soft, nontender. EXTREMITIES: With trace pitting edema. LABORATORY DATA: Reviewed. BUN 23, creatinine 1.3. COVID negative. White cell count 5.3. IMPRESSION: 1. Persistent acute hypoxic respiratory failure secondary to ongoing interstitial edema/ acute diastolic HF/ On IVF 2. Abnormal chest x-ray with persistent interstitial edema. 3. Echocardiogram with EF of 50% and mild to moderate MR. 4. Updated on COVID-19 vaccine. No clinical suspicion for pneumonia. 5. Hypertension.sub-optimal control. Likely contributing to diastolic heart failure. 6. Mild chronic kidney disease. RECOMMENDATIONS: 1. I have discussed with the patient's daughter and Dr. Stiles. At this point, I would recommend discontinuing IV fluids and give her 40 mg of IV Lasix to see clinical improvement. 2. We will follow chest x-ray shortly in next 48 hours post-diuresis. 3. I have discussed with the patient's daughter that her renal function needs to be closely watched for. Since she is not making any clinical progress it is reasonable to attempt diuresis to see clinical benefits. 4. Follow Cardiology recommendations. 5. Needs optimization of blood pressure. We will follow Cardiology recommendations. 6. Discussed with RN. YESENIA/HAL DR: Rea TID: [id number] MTDD
[2021-04-30] MEDS ORDERED: FUROSEMIDE 40 MG/4 ML VIAL. IVP ONE (13:30)
[2021-04-30] MEDS ORDERED: IOHEXOL 350 MG/ML 100 ML VIAL. IV ONE (13:45)
[2021-04-30] MEDS ORDERED: CONTRAST GIVEN. MC PRN (13:45)
[2021-04-30 15:00] VITALS: BP 122/59
--- NOTE | 2021-04-30 15:16 | RAD ---
CTA CHEST History: Unexplained hypoxia Comparison: CT thoracic spine 04/12/2021 Technique: CTA of the pulmonary arteries with intravenous contrast. 3-D postprocessing was performed. Findings: Pulmonary arteries: No pulmonary embolism. Aorta and great vessels: No aneurysm or dissection of the aortic arch or thoracic aorta. Moderate ath erosclerotic calcification. Thyroid: No significant abnormalities. Mediastinum and miladys: No mediastinal masses or adenopathy is seen. Esophagus: The visualized esophagus is normal. Heart: The heart is normal in size. There is no pericardial effusion. Moderate coronary artery calcif ications. Calcification of the mitral annulus. Airways, Lungs, Pleura: Mild centrilobular emphysematous change. 4 mm right upper lobe pulmonary nodu le (axial image 35). Left lower lobe groundglass nodule measures 1.2 cm diameter (axial 87). Small to moderate bilateral effusions with bilateral lower lobe compressive atelectasis and consolidation, de veloped since comparison CT. Upper abdomen: Unremarkable. Osseous structures and soft tissues: There has been interval kyphoplasty at T12. No acute osseous abn ormality is identified. Impression: 1. No pulmonary embolism. 2. Small to moderate bilateral pleural effusions from March 2021 comparison with adjacent consoli dation/compressive atelectasis. 3. Mild centrilobular emphysema. 4. Left lower lobe groundglass nodule measuring 1.2 cm diameter and right upper lobe 0.4 cm solid pu lmonary nodule. Recommend follow-up noncontrast CT of the chest in 6 months to evaluate for persisten ce. ------ Exposure: One or more of the following individualized dose reduction techniques were utilized for thi s examination: 1. Automated exposure control 2. Adjustment of the mA and/or kV according to patient size 3. Use of iterative reconstruction technique. Electronically signed by: Esequiel Bauman MD (04/30/2021 3:14 PM) [id number]
[2021-04-30 19:17] VITALS: BP 116/59
[2021-04-30] MEDS: POLYETHYLENE GLYCOL 3350 17 GM PACKET. PO PRN (20:48)
[2021-04-30] MEDS: MIRTAZAPINE 15 MG TABLET PO SCH (20:49)
[2021-04-30 22:30] VITALS: BP 131/59
[2021-05-01 02:14] VITALS: BP 133/62
[2021-05-01] MEDS: oxyCODONE/APAP 5/325 1 TAB TABLET PO PRN ×2 (02:48→04:55)
[2021-05-01 07:00] VITALS: BP 117/56
[2021-05-01] MEDS: INSULIN LISPRO 300 UNITS/3 ML VIAL. SQ SCH ×3 (07:53→17:00)
[2021-05-01] MEDS: PANTOPRAZOLE 40 MG TABLET.DR. PO SCH (08:43)
[2021-05-01] MEDS: MAGNESIUM OXIDE 400 MG TABLET PO SCH (08:43)
[2021-05-01] MEDS: DOCUSATE SODIUM 100 MG CAPSULE. PO PRN (08:43)
[2021-05-01] MEDS: CYANOCOBALAMIN (VITAMIN B-12) 1,000 MCG TABLET. PO SCH (08:43)
[2021-05-01] MEDS: ARIPiprazole 5 MG TABLET PO SCH (08:44)
[2021-05-01] MEDS: FERROUS SULFATE 325 MG TABLET. PO SCH (08:44)
[2021-05-01] MEDS: ASPIRIN CHEWABLE 81 MG TABLET. PO SCH (08:44)
[2021-05-01] MEDS: OXYBUTYNIN CHLORIDE 5 MG TABLET PO SCH ×3 (08:44→21:15)
[2021-05-01] MEDS: FLUoxetine HCL 20 MG CAPSULE PO SCH (08:44)
[2021-05-01] MEDS: HYDROXYCHLOROQUINE 200 MG TABLET PO SCH ×2 (08:45→21:15)
[2021-05-01] MEDS: LISINOPRIL 20 MG TABLET PO SCH ×2 (08:45→21:19)
[2021-05-01 10:08] LABS: HEMATOCRIT 28.4 % (36.0-47.0); HEMOGLOBIN 8.6 g/dL (12.0-15.5); RED BLOOD COUNT 3.56 x10^6/uL (3.50-5.40); RED CELL DISTRIBUTION WIDTH 16.4 % (11.5-14.5); WHITE BLOOD COUNT 4.6 x10^3/uL (4.0-11.0)
[2021-05-01 10:17] LABS: ALBUMIN 2.6 g/dL (3.4-5.0); ALBUMIN/GLOBULIN RATIO 0.7 (1.0-1.7); CALCIUM 8.6 mg/dL (8.5-10.1); CREATININE 1.5 mg/dL (0.6-1.0); GFR 33.5; POTASSIUM 3.8 mmol/L (3.5-5.1); TOTAL BILIRUBIN 0.2 mg/dL (0.2-1.0); TOTAL PROTEIN 6.4 g/dL (6.4-8.2)
--- NOTE | 2021-05-01 10:55 | PDOC ---
PULMONARY PROGRESS NOTES DATE: 05/01/21 TIME: 10:51 Subjective Patient feels better after diuresis and discontinuation of IV fluids yesterday. Vitals Vital Signs Date Time Temp Pulse Resp B/P (MAP) Pulse Ox O2 Delivery O2 Flow Rate FiO2 05/01/21 08:46 83 117/56 05/01/21 07:48 Nasal Cannula 2.0 05/01/21 07:00 98.2 18 96 98.2 General: Alert, No acute distress Lungs: Other (Decreased breath sounds at the bases.) Cardiovascular: S1 Abdomen: Soft Neuro Exam: Alert Extremities: No Edema Skin: Warm Labs Laboratory Tests Test 04/29/21 11:32 04/29/21 16:40 04/29/21 20:16 04/30/21 04:40 Glucose (Fingerstick) 129 mg/dL (70-99) 119 mg/dL (70-99) 160 mg/dL (70-99) Sodium Level 143 mmol/L (136-145) Potassium Level 3.8 mmol/L (3.5-5.1) Chloride Level 105 mmol/L (98-107) Carbon Dioxide Level 32 mmol/L (21-32) Anion Gap 6 (6-14) Blood Urea Nitrogen 23 mg/dL (7-20) Creatinine 1.3 mg/dL (0.6-1.0) Estimated GFR (Cockcroft-Gault) 39.5 Glucose Level 125 mg/dL (70-99) Calcium Level 8.2 mg/dL (8.5-10.1) Test 04/30/21 08:15 04/30/21 11:56 04/30/21 16:11 04/30/21 20:27 Glucose (Fingerstick) 134 mg/dL (70-99) 134 mg/dL (70-99) 139 mg/dL (70-99) 145 mg/dL (70-99) Test 05/01/21 07:29 05/01/21 09:37 Glucose (Fingerstick) 127 mg/dL (70-99) White Blood Count 4.6 x10^3/uL (4.0-11.0) Red Blood Count 3.56 x10^6/uL (3.50-5.40) Hemoglobin 8.6 g/dL (12.0-15.5) Hematocrit 28.4 % (36.0-47.0) Mean Corpuscular Volume 80 fL (79-100) Mean Corpuscular Hemoglobin 24 pg (25-35) Mean Corpuscular Hemoglobin Concent 30 g/dL (31-37) Red Cell Distribution Width 16.4 % (11.5-14.5) Platelet Count 318 x10^3/uL (140-400) Sodium Level 142 mmol/L (136-145) Potassium Level 3.8 mmol/L (3.5-5.1) Chloride Level 102 mmol/L (98-107) Carbon Dioxide Level 32 mmol/L (21-32) Anion Gap 8 (6-14) Blood Urea Nitrogen 20 mg/dL (7-20) Creatinine 1.5 mg/dL (0.6-1.0) Estimated GFR (Cockcroft-Gault) 33.5 BUN/Creatinine Ratio 13 (6-20) Glucose Level 212 mg/dL (70-99) Calcium Level 8.6 mg/dL (8.5-10.1) Total Bilirubin 0.2 mg/dL (0.2-1.0) Aspartate Amino Transf (AST/SGOT) 18 U/L (15-37) Alanine Aminotransferase (ALT/SGPT) 15 U/L (14-59) Alkaline Phosphatase 159 U/L (46-116) Total Protein 6.4 g/dL (6.4-8.2) Albumin 2.6 g/dL (3.4-5.0) Albumin/Globulin Ratio 0.7 (1.0-1.7) Laboratory Tests Test 04/30/21 11:56 04/30/21 16:11 04/30/21 20:27 05/01/21 07:29 Glucose (Fingerstick) 134 mg/dL (70-99) 139 mg/dL (70-99) 145 mg/dL (70-99) 127 mg/dL (70-99) Test 05/01/21 09:37 White Blood Count 4.6 x10^3/uL (4.0-11.0) Red Blood Count 3.56 x10^6/uL (3.50-5.40) Hemoglobin 8.6 g/dL (12.0-15.5) Hematocrit 28.4 % (36.0-47.0) Mean Corpuscular Volume 80 fL (79-100) Mean Corpuscular Hemoglobin 24 pg (25-35) Mean Corpuscular Hemoglobin Concent 30 g/dL (31-37) Red Cell Distribution Width 16.4 % (11.5-14.5) Platelet Count 318 x10^3/uL (140-400) Sodium Level 142 mmol/L (136-145) Potassium Level 3.8 mmol/L (3.5-5.1) Chloride Level 102 mmol/L (98-107) Carbon Dioxide Level 32 mmol/L (21-32) Anion Gap 8 (6-14) Blood Urea Nitrogen 20 mg/dL (7-20) Creatinine 1.5 mg/dL (0.6-1.0) Estimated GFR (Cockcroft-Gault) 33.5 BUN/Creatinine Ratio 13 (6-20) Glucose Level 212 mg/dL (70-99) Calcium Level 8.6 mg/dL (8.5-10.1) Total Bilirubin 0.2 mg/dL (0.2-1.0) Aspartate Amino Transf (AST/SGOT) 18 U/L (15-37) Alanine Aminotransferase (ALT/SGPT) 15 U/L (14-59) Alkaline Phosphatase 159 U/L (46-116) Total Protein 6.4 g/dL (6.4-8.2) Albumin 2.6 g/dL (3.4-5.0) Albumin/Globulin Ratio 0.7 (1.0-1.7) Medications Active Scripts Medications Dose Route/Sig Max Daily Dose Days Date Category Metformin Hcl 1,000 Mg Tablet 1,000 Mg PO BID 04/26/21 Reported Percocet 5-325 Mg Tablet (Oxycodone/Acetaminophen) 1 Each Tablet 1 Tab PO PRN Q6HRS PRN 6 04/17/21 Rx Vesicare (Solifenacin Succinate) 10 Mg Tablet 1 Tab PO DAILY 30 04/12/21 Reported Trulicity (Dulaglutide) 1.5 Mg/0.5 Ml Pen.injctr 1.5 Mg SQ WEEKLY 04/12/21 Reported Prilosec Otc (Omeprazole Magnesium) 20 Mg Tablet.dr 40 Mg PO DAILY 04/12/21 Reported Plaquenil (Hydroxychloroquine Sulfate) 200 Mg Tablet 200 Mg PO BID 04/12/21 Reported Remeron (Mirtazapine) 15 Mg Tablet 7.5 Mg PO QHS 04/12/21 Reported Magnesium Oxide 400 Mg Tablet 1 Tab PO DAILY 04/12/21 Reported Lisinopril 20 Mg Tablet 1 Tab PO BID 04/12/21 Reported Ferrous Sulfate 325 Mg Tablet 1 Tab PO DAILY 04/12/21 Reported B-12 (Cyanocobalamin (Vitamin B-12)) 1,000 Mcg Tablet.er 1 Tab PO DAILY 30 04/12/21 Reported Children's Aspirin (Aspirin) 81 Mg Tab.chew 1 Tab PO DAILY 30 04/12/21 Reported Abilify (Aripiprazole) 5 Mg Tablet 5 Mg PO DAILY 04/12/21 Reported Fluoxetine Hcl 40 Mg Capsule 1 Cap PO DAILY 08/28/[address] angiogram reviewed. 1. No pulmonary embolism. 2. Small to moderate bilateral pleural effusions from March 2021 comparison with adjacent consolidation/compressive atelectasis. 3. Mild centrilobular emphysema. 4. Left lower lobe groundglass nodule measuring 1.2 cm diameter and right upper lobe 0.4 cm solid pulmonary nodule. Recommend follow-up noncontrast CT of the chest in 6 months to evaluate for persistence. Impression . 1. acute hypoxic respiratory failure secondary to ongoing interstitial edema/ acute diastolic HF/ On IVF. Clinically improved after discontinuation of IV fluids and extra IV Lasix. 2. Abnormal chest x-ray with persistent interstitial edema. 3. Echocardiogram with EF of 50% and mild to moderate MR. 4. Updated on COVID-19 vaccine. No clinical suspicion for pneumonia. 5. Hypertension.sub-optimal control. Likely contributing to diastolic heart failure. 6. Mild chronic kidney disease. 7. Abnormal CT chest. There is no evidence of pulmonary embolism. There is small bilateral pleural effusions with associated atelectasis. There is a 1.2 cm groundglass nodule in the left lower lobe and a tiny 4 mm nodule in the right upper lobe. Plan . RECOMMENDATIONS: 1. Patient has improved clinically. I would recommend withhold any further Lasix. 2. CT angiogram was reviewed. Pleural effusions do not need any further intervention. The groundglass nodule in the left lower lobe would need a follow-up CT chest in 6 months. Given her advanced age, I would not recommend any further invasive work-up. 3. Monitor renal function. 4. Follow Cardiology recommendations. 5. optimization of blood pressure. follow Cardiology recommendations. 6. Discussed with RN. JUAN WELCH MD May 01, 2021 10:55
[2021-05-01 11:00] VITALS: BP 117/56
[2021-05-01] MEDS ORDERED: IV NORMAL SALINE 1000ML BAG 1,000 ML IV SCH (12:15)
--- NOTE | 2021-05-01 13:22 | SNU/HH DC ---
DISCHARGE ORDERS DISCHARGE INFORMATION: DISCHARGE DATE: May 02, 2021 FINAL DIAGNOSIS Problems Medical Problems: (1) A-fib Status: Acute (2) Anemia Status: Acute (3) CHF (congestive heart failure) Status: Acute (4) Dyspnea Status: Acute CONDITION ON DISCHARGE: Stable CODE STATUS: Code Status: Full SENIOR CARE: SNF STAY <30 DAYS: Yes POST DISCHARGE ORDERS: ACTIVITY ORDERS: Resume previous activity, Activity as tolerated WEIGHT BEARING STATUS: Full weight bearing DIET AFTER DISCHARGE: ADA CHECKS AFTER DISCHARGE: CHECKS AFTER DISCHARGE: Check blood sugar, ac/hs TREATMENT/EQUIPMENT ORDERS: ADAPTIVE EQUIPMENT NEEDED: Front wheeled walker Physical Therapy For: Evalulation/Treatment Occupational Therapy For: Evaluation/Treatment DISCHARGE MEDICATIONS: Home Meds Reported Medications Metformin Hcl (METFORMIN HCL) 1,000 Mg Tablet, 1000 MG PO BID for ANTI-DIABETIC, TAB 0 Refills 04/26/21 Solifenacin Succinate (VESICARE) 10 Mg Tablet, 1 TAB PO DAILY for overactive bladder for 30 Days, #30 TAB 0 Refills 04/12/21 Dulaglutide (Trulicity) 1.5 Mg/0.5 Ml Pen.injctr, 1.5 MG SQ WEEKLY for DM, EACH 04/12/21 Omeprazole Magnesium (PRILOSEC OTC) 20 Mg Tablet.dr, 40 MG PO DAILY for GERD, TAB 04/12/21 Hydroxychloroquine Sulfate (PLAQUENIL) 200 Mg Tablet, 200 MG PO BID for pruitus, TAB 04/12/21 Mirtazapine (REMERON) 15 Mg Tablet, 7.5 MG PO QHS for insomnia, TAB 04/12/21 Magnesium Oxide (MAGNESIUM OXIDE) 400 Mg Tablet, 1 TAB PO DAILY for supplement, #30 TAB 5 Refills 04/12/21 Ferrous Sulfate (FERROUS SULFATE) 325 Mg Tablet, 1 TAB PO DAILY for supplement, #30 TAB 3 Refills 04/12/21 Cyanocobalamin (Vitamin B-12) (B-12) 1,000 Mcg Tablet.er, 1 TAB PO DAILY for supplement for 30 Days, #30 TAB 0 Refills 04/12/21 Aspirin (Children's Aspirin) 81 Mg Tab.chew, 1 TAB PO DAILY for prophylaxis for 30 Days, #30 TAB 0 Refills 04/12/21 Aripiprazole (ABILIFY) 5 Mg Tablet, 5 MG PO DAILY for dementia, TAB 04/12/21 Fluoxetine Hcl (FLUOXETINE HCL) 40 Mg Capsule, 1 CAP PO DAILY, #30 CAP 2 Refills 08/28/16 Discontinued Reported Medications Lisinopril (LISINOPRIL) 20 Mg Tablet, 1 TAB PO BID for HTN, #30 TAB 5 Refills 04/12/21 Magnesium Hydroxide (MILK OF MAGNESIA) 2,400 Mg/10 Ml Oral.susp, 2400 MG PO PRN DAILY PRN for CONSTIPATION, MISC 04/12/21 Loperamide Hcl (LOPERAMIDE) 2 Mg Tablet, 1 TAB PO Q4HRS for loose stool for 30 Days, #180 TAB 0 Refills 04/12/21 Discontinued Scripts Oxycodone/Apap 5-325 (PERCOCET 5-325 MG TABLET ) 1 Each Tablet, 1 TAB PO PRN Q6HRS PRN for MODERATE PAIN for 6 Days, #20 TAB Prov:ELVIA SHERWOOD MD 04/17/21 DEJUAN RESENDEZ MD May 01, 2021 13:22
--- NOTE | 2021-05-01 14:18 | NUR ---
SS following up with discharge planning. SS reviewed pt chart and discussed with pt RN. Pt is currently requiring oxygen at two liters nasal canula. COVID19 negative. PT/OT recommended shelter unit. Pt accepted at [facility], ; fax [phone]. Rapid COVID19 test pending for placement. Discharge orders received and sent to [facility] for discharge tomorrow. Dr. Baldwin requesting one more night to monitor. Pt will discharge tomorrow, 05/02/2021, and go to [facility] via [employer], , between 1200 and 1230. Pt, pt's RN, and pt's family notified.
[2021-05-01 15:00] VITALS: BP 162/71
--- NOTE | 2021-05-01 16:28 | PDOC ---
BENSON VALDES [employer]ER 05/01/21 1628: CARDIO Progress Notes Date and Time Date of Service 05/01/2021 Time of Evaluation 1615 Subjective Subjective: No Chest Pain, No shortness of breath, No Palpitations Vitals Vitals Vital Signs Date Time Temp Pulse Resp B/P (MAP) Pulse Ox O2 Delivery O2 Flow Rate FiO2 05/01/21 15:00 97.8 86 18 162/71 (101) 96 Nasal Cannula 2.0 97.8 Weight Weight [ ] Input and Output Intake and Output Intake and Output 05/01/21 07:00 Intake Total 775 ml Output Total 1225 ml Balance -450 ml Intake Oral 775 ml Output Urine Total 1225 ml # Voids 1 # Bowel Movements 1 Laboratory Labs Laboratory Tests Test 04/30/21 20:27 05/01/21 07:29 05/01/21 09:37 05/01/21 11:25 Glucose (Fingerstick) 145 mg/dL (70-99) 127 mg/dL (70-99) 158 mg/dL (70-99) White Blood Count 4.6 x10^3/uL (4.0-11.0) Red Blood Count 3.56 x10^6/uL (3.50-5.40) Hemoglobin 8.6 g/dL (12.0-15.5) Hematocrit 28.4 % (36.0-47.0) Mean Corpuscular Volume 80 fL (79-100) Mean Corpuscular Hemoglobin 24 pg (25-35) Mean Corpuscular Hemoglobin Concent 30 g/dL (31-37) Red Cell Distribution Width 16.4 % (11.5-14.5) Platelet Count 318 x10^3/uL (140-400) Sodium Level 142 mmol/L (136-145) Potassium Level 3.8 mmol/L (3.5-5.1) Chloride Level 102 mmol/L (98-107) Carbon Dioxide Level 32 mmol/L (21-32) Anion Gap 8 (6-14) Blood Urea Nitrogen 20 mg/dL (7-20) Creatinine 1.5 mg/dL (0.6-1.0) Estimated GFR (Cockcroft-Gault) 33.5 BUN/Creatinine Ratio 13 (6-20) Glucose Level 212 mg/dL (70-99) Calcium Level 8.6 mg/dL (8.5-10.1) Total Bilirubin 0.2 mg/dL (0.2-1.0) Aspartate Amino Transf (AST/SGOT) 18 U/L (15-37) Alanine Aminotransferase (ALT/SGPT) 15 U/L (14-59) Alkaline Phosphatase 159 U/L (46-116) Total Protein 6.4 g/dL (6.4-8.2) Albumin 2.6 g/dL (3.4-5.0) Albumin/Globulin Ratio 0.7 (1.0-1.7) Test 05/01/21 14:25 SARS-CoV-2 Antigen (Rapid) Negative (NEGATIVE) Microbiology Micro Microbiology 04/26/21 Blood Culture - Final, Complete NO GROWTH AFTER 5 DAYS Physical Exam HEENT: Neck Supple W Full Motion Chest: Symmetric LUNGS: Other (diminished bases) Heart: RRR (SR) Abdomen: Soft N/T Extremities: No Edema Neurology: alert, oriented, follow commands Assessment Assessment 1. Acute respiratory failure; continue to require O2 supplementation. On IV hydration for CTA chest today 2. Acute on chronic diastolic CHF; Echo with preserved LV systolic function. compensated 3. Accelerated hypertension; controlled 4. Diabetes, II 5. MARIO; Cr stable 6. Hypokalemia; resolved 7. Anemia 8. S/p recent bilateral sacral insufficiency fractures s/p sacroplasty 9. Severe back pain with T12 compression fracture; s/p kyphoplasty 10. Arrhythmia; brief bursts of NSVT. none further Maintaining SR Recommendations Continue current regimen No further lasix, appears euvolemic Supportive care Will consider for outpt ischemic workup given her risk factors. Justicifation of Admission Dx: Justifications for Admission: Justification of Admission Dx: Yes TAMIKA GOTTI MD 05/01/21 1647: CARDIO Progress Notes Plan Plan The patient was seen and interviewed as well as examined at the bedside. The chart was reviewed. The case was discussed. Agree with the plan of care. BENSON VALDES APRN May 01, 2021 16:28 TAMIKA GOTTI MD May 01, 2021 16:47
[2021-05-01 19:28] VITALS: BP 176/77
[2021-05-01] MEDS: MIRTAZAPINE 15 MG TABLET PO SCH (21:20)
[2021-05-01 22:40] VITALS: BP 136/63
--- NOTE | 2021-05-02 03:21 | PN ---
DATE: 05/01/2021 SUBJECTIVE: The patient is resting, slightly propped up in bed, in no apparent respiratory distress. On questioning her, denied any complaint. Nursing staff did not voice any concern. We did actually CT angio of the chest yesterday, which basically showed no evidence of pulmonary embolism. She has small to moderate bilateral pleural effusion with adjacent consolidative compression atelectasis, mild centrilobular emphysema, left lower lobe ground-glass nodule measuring 1.2 cm in diameter and the right upper lobe 0.4 cm solid pulmonary nodule. Recommended followup noncontrast CT of the chest in 6 months to evaluate for persistence. PHYSICAL EXAMINATION: GENERAL: When I examined her, she was pale, not jaundice, cyanosed or thyromegaly. No jugular venous distention. No lower limb edema. VITAL SIGNS: Her heart rate was 83, blood pressure was 117/56, temperature 98.2, respiratory rate was 18 and oxygen saturation was 96% on 2 liters of oxygen. HEAD, EYES, EARS, NOSE, AND THROAT: Normocephalic, atraumatic. NECK: Supple. HEART: Showed normal first and second heart sounds. No gallop or murmur. CHEST: Shows central trachea, equal bilateral chest expansion, air entry, vesicular breath sounds. There are a few bilateral basal crepitation posteriorly. I could not appreciate any rhonchi. ABDOMEN: Scaphoid, soft, nontender. NEUROLOGIC: She is grossly intact. Her intake was 540, output was 200. LABORATORY DATA: As of this morning, her white cell count was 4600, hemoglobin 8.6, hematocrit 28.4, MCV 80 and platelet count of 318,000. Her chemistry showed a serum sodium 142, potassium 3.8, chloride 102, bicarbonate 32, anion gap of 8, BUN 20, creatinine 1.5. Estimated GFR was 83 mL per minute. Her glucose 212, calcium was 8.6. Total bilirubin, AST, ALT were normal. Alkaline phosphatase slightly elevated at 159. Total protein 6.4, albumin was 2.6. Her prothrombin time and INR are normal. ASSESSMENT: 1. Acute probably on chronic, likely diastolic congestive heart failure, improved. In fact, the patient has been well diuresed. Her creatinine has risen up to 1.4 from 1.2. 2. Severe osteoporosis with compression fracture of T12 and a CT scan done at the beginning of the month and Dr. Farris recommended a bone scan, which confirmed that she has T12 compression fracture for which she underwent kyphoplasty successfully. Her back pain is much improved. 3. She has bilateral sacral insufficiency fractures due to sacroplasty on her last admission. 4. Opioid-induced constipation for which I did start her on magnesium citrate, did receive also Relistor. 5. Acute hypoxic respiratory failure, likely diastolic congestive heart failure as well as chronic obstructive pulmonary disease and possible pulmonary emboli. 6. Chronic obstructive pulmonary disease. The patient has been a heavy smoker for a long time, quit in 2011. 7. Other medical problems include: A. Hypertension. B. Type 2 diabetes mellitus. C. Gastroesophageal reflux disease. D. Rheumatoid arthritis. E. Recurrent urinary tract infection. 8. The patient's creatinine has risen after she received contrast, so I will start her on very gentle hydration with normal saline at 75. We repeat her lab work tomorrow, if the creatinine remained stable or less then she can be discharged to [facility]. NICOLAS/BRIAN/KRYSTLE DR: Bruce TID: [id number]
[2021-05-02 03:40] VITALS: BP 136/64
[2021-05-02 05:56] LABS: CALCIUM 8.6 mg/dL (8.5-10.1); CREATININE 1.5 mg/dL (0.6-1.0); GFR 33.5; POTASSIUM 3.6 mmol/L (3.5-5.1)
[2021-05-02 07:30] VITALS: BP 145/69
[2021-05-02] MEDS: INSULIN LISPRO 300 UNITS/3 ML VIAL. SQ SCH (08:00)
[2021-05-02] MEDS: FLUoxetine HCL 20 MG CAPSULE PO SCH (09:29)
[2021-05-02] MEDS: CYANOCOBALAMIN (VITAMIN B-12) 1,000 MCG TABLET. PO SCH (09:29)
[2021-05-02] MEDS: PANTOPRAZOLE 40 MG TABLET.DR. PO SCH (09:29)
[2021-05-02] MEDS: MAGNESIUM OXIDE 400 MG TABLET PO SCH (09:29)
[2021-05-02] MEDS: ASPIRIN CHEWABLE 81 MG TABLET. PO SCH (09:30)
[2021-05-02] MEDS: ARIPiprazole 5 MG TABLET PO SCH (09:30)
[2021-05-02] MEDS: FERROUS SULFATE 325 MG TABLET. PO SCH (09:31)
[2021-05-02] MEDS: HYDROXYCHLOROQUINE 200 MG TABLET PO SCH (09:31)
[2021-05-02] MEDS: OXYBUTYNIN CHLORIDE 5 MG TABLET PO SCH (09:31)
[2021-05-02] MEDS: LISINOPRIL 20 MG TABLET PO SCH (09:32)
--- NOTE | 2021-05-02 09:46 | PDOC ---
PROGRESS NOTES Date of Service: DATE: 05/02/21 TIME: 09:46 Subjective Subjective Feeling better with improvement in dyspnea Objective Objective Vital Signs Date Time Temp Pulse Resp B/P (MAP) Pulse Ox O2 Delivery O2 Flow Rate FiO2 05/02/21 09:32 65 136/64 05/02/21 07:30 97.5 16 91 Nasal Cannula 2.0 97.5 Intake and Output 05/02/21 07:00 Intake Total 408.92 ml Output Total 100 ml Balance 308.92 ml Intake Oral 60 ml IV Total 348.92 ml Output Urine Total 100 ml # Bowel Movements 1 Physical Exam Abdomen: Soft Heart: Regular rate (SR/SA) Extremities: Other (trace pedal edema ) General: Alert, Oriented X3, Cooperative, No acute distress HEENT: Atraumatic Lungs: Other (diminished bases) MUSCULOSKELETAL: Osteoarthritic changes both hands Neuro: Normal speech, Sensation intact Psych/Mental Status: Mental status NL, Mood NL Skin: No significant lesion Assessment Assessment 1. Acute respiratory failure; improved 2. Acute on chronic diastolic CHF; Echo with preserved LV systolic function. Better compensated 3. Accelerated hypertension; controlled 4. Diabetes, II 5. MARIO; Cr stable 6. Hypokalemia; resolved 7. Anemia 8. S/p recent bilateral sacral insufficiency fractures s/p sacroplasty 9. Severe back pain with T12 compression fracture; s/p kyphoplasty 10. Arrhythmia; brief bursts of NSVT. none further Maintaining SR Recommendations Continue current regimen No further lasix, appears euvolemic Supportive care Will consider for outpt ischemic workup given her risk factors. Plan Plan of Care Problems Medical Problems: (1) A-fib Status: Acute (2) Anemia Status: Acute (3) CHF (congestive heart failure) Status: Acute (4) Dyspnea Status: Acute Comment Review of Relevant I have reviewed the following items lyly (where applicable) has been applied. Labs Laboratory Tests Test 05/01/21 11:25 05/01/21 14:25 05/01/21 17:01 05/01/21 21:03 Glucose (Fingerstick) 158 mg/dL (70-99) 202 mg/dL (70-99) 134 mg/dL (70-99) SARS-CoV-2 Antigen (Rapid) Negative (NEGATIVE) Test 05/02/21 04:00 05/02/21 08:57 Sodium Level 145 mmol/L (136-145) Potassium Level 3.6 mmol/L (3.5-5.1) Chloride Level 106 mmol/L (98-107) Carbon Dioxide Level 31 mmol/L (21-32) Anion Gap 8 (6-14) Blood Urea Nitrogen 20 mg/dL (7-20) Creatinine 1.5 mg/dL (0.6-1.0) Estimated GFR (Cockcroft-Gault) 33.5 Glucose Level 137 mg/dL (70-99) Calcium Level 8.6 mg/dL (8.5-10.1) Glucose (Fingerstick) 167 mg/dL (70-99) Microbiology 04/26/21 Blood Culture - Final, Complete NO GROWTH AFTER 5 DAYS Medications Current Medications Metformin HCl (Glucophage) 1,000 mg BIDWMEALS PO ; Start 05/02/21 at 17:00 Non-Formulary Medication (Dulaglutide (Trulicity)) 1.5 mg WEEKLY SQ ; Start 05/03/21 at 09:00; Status UNV Sodium Chloride 1,000 ml @ 75 mls/hr [id number] IV Last administered on 05/01/21at 12:15; Start 05/01/21 at 12:15; Stop 05/01/21 at 17:17; Status DC Vitals/I & O Vital Sign - Last 24 Hours 05/01/21 05/01/21 05/01/21 05/01/21 11:00 15:00 19:28 20:00 Temp 98.1 97.8 97.8 98.1 97.8 97.8 Pulse 77 86 75 Resp 18 18 21 B/P (MAP) 117/56 (76) 162/71 (101) 176/77 (110) Pulse Ox 96 96 95 O2 Delivery Nasal Cannula Nasal Cannula Nasal Cannula Nasal Cannula O2 Flow Rate 2.0 2.0 2.0 2.0 05/01/21 05/01/21 05/01/21 05/02/21 21:17 21:19 22:40 03:40 Temp 97.7 97.7 97.7 97.7 Pulse 75 75 75 65 Resp 22 21 B/P (MAP) 176/77 176/77 136/63 (87) 136/64 (88) Pulse Ox 95 95 O2 Delivery Nasal Cannula Nasal Cannula O2 Flow Rate 2.0 2.0 3/07/1905/02/21 05/02/21 05/02/21 07:30 09:30 09:31 09:32 Temp 97.5 97.5 Pulse 81 65 65 65 Resp 16 B/P (MAP) 145/69 (94) 136/64 136/64 136/64 Pulse Ox 91 O2 Delivery Nasal Cannula O2 Flow Rate 2.0 Intake and Output 05/01/21 05/01/21 05/02/21 15:00 23:00 07:00 Intake Total 408.92 ml 0 ml Output Total 100 ml Balance 408.92 ml -100 ml MARY CARMEN RED MD May 02, 2021 09:46
[2021-05-02 10:50] VITALS: BP 113/55
--- NOTE | 2021-05-02 11:29 | PDOC ---
PULMONARY PROGRESS NOTES DATE: 05/02/21 TIME: 11:29 Subjective Patient feels better after diuresis and discontinuation of IV fluids Vitals Vital Signs Date Time Temp Pulse Resp B/P (MAP) Pulse Ox O2 Delivery O2 Flow Rate FiO2 05/02/21 10:50 97.3 76 16 113/55 (74) 96 Nasal Cannula 2.0 97.3 General: Alert, No acute distress Lungs: Other (Decreased breath sounds at the bases.) Cardiovascular: S1 Abdomen: Soft Neuro Exam: Alert Extremities: No Edema Skin: Warm Labs Laboratory Tests Test 04/30/21 11:56 04/30/21 16:11 04/30/21 20:27 05/01/21 07:29 Glucose (Fingerstick) 134 mg/dL (70-99) 139 mg/dL (70-99) 145 mg/dL (70-99) 127 mg/dL (70-99) Test 05/01/21 09:37 05/01/21 11:25 05/01/21 14:25 05/01/21 17:01 White Blood Count 4.6 x10^3/uL (4.0-11.0) Red Blood Count 3.56 x10^6/uL (3.50-5.40) Hemoglobin 8.6 g/dL (12.0-15.5) Hematocrit 28.4 % (36.0-47.0) Mean Corpuscular Volume 80 fL (79-100) Mean Corpuscular Hemoglobin 24 pg (25-35) Mean Corpuscular Hemoglobin Concent 30 g/dL (31-37) Red Cell Distribution Width 16.4 % (11.5-14.5) Platelet Count 318 x10^3/uL (140-400) Sodium Level 142 mmol/L (136-145) Potassium Level 3.8 mmol/L (3.5-5.1) Chloride Level 102 mmol/L (98-107) Carbon Dioxide Level 32 mmol/L (21-32) Anion Gap 8 (6-14) Blood Urea Nitrogen 20 mg/dL (7-20) Creatinine 1.5 mg/dL (0.6-1.0) Estimated GFR (Cockcroft-Gault) 33.5 BUN/Creatinine Ratio 13 (6-20) Glucose Level 212 mg/dL (70-99) Calcium Level 8.6 mg/dL (8.5-10.1) Total Bilirubin 0.2 mg/dL (0.2-1.0) Aspartate Amino Transf (AST/SGOT) 18 U/L (15-37) Alanine Aminotransferase (ALT/SGPT) 15 U/L (14-59) Alkaline Phosphatase 159 U/L (46-116) Total Protein 6.4 g/dL (6.4-8.2) Albumin 2.6 g/dL (3.4-5.0) Albumin/Globulin Ratio 0.7 (1.0-1.7) Glucose (Fingerstick) 158 mg/dL (70-99) 202 mg/dL (70-99) SARS-CoV-2 Antigen (Rapid) Negative (NEGATIVE) Test 05/01/21 21:03 05/02/21 04:00 05/02/21 08:57 Glucose (Fingerstick) 134 mg/dL (70-99) 167 mg/dL (70-99) Sodium Level 145 mmol/L (136-145) Potassium Level 3.6 mmol/L (3.5-5.1) Chloride Level 106 mmol/L (98-107) Carbon Dioxide Level 31 mmol/L (21-32) Anion Gap 8 (6-14) Blood Urea Nitrogen 20 mg/dL (7-20) Creatinine 1.5 mg/dL (0.6-1.0) Estimated GFR (Cockcroft-Gault) 33.5 Glucose Level 137 mg/dL (70-99) Calcium Level 8.6 mg/dL (8.5-10.1) Laboratory Tests Test 05/01/21 14:25 05/01/21 17:01 05/01/21 21:03 05/02/21 04:00 SARS-CoV-2 Antigen (Rapid) Negative (NEGATIVE) Glucose (Fingerstick) 202 mg/dL (70-99) 134 mg/dL (70-99) Sodium Level 145 mmol/L (136-145) Potassium Level 3.6 mmol/L (3.5-5.1) Chloride Level 106 mmol/L (98-107) Carbon Dioxide Level 31 mmol/L (21-32) Anion Gap 8 (6-14) Blood Urea Nitrogen 20 mg/dL (7-20) Creatinine 1.5 mg/dL (0.6-1.0) Estimated GFR (Cockcroft-Gault) 33.5 Glucose Level 137 mg/dL (70-99) Calcium Level 8.6 mg/dL (8.5-10.1) Test 05/02/21 08:57 Glucose (Fingerstick) 167 mg/dL (70-99) Medications Active Scripts Medications Dose Route/Sig Max Daily Dose Days Date Category Metformin Hcl 1,000 Mg Tablet 1,000 Mg PO BID 04/26/21 Reported Percocet 5-325 Mg Tablet (Oxycodone/Acetaminophen) 1 Each Tablet 1 Tab PO PRN Q6HRS PRN 6 04/17/21 Rx Vesicare (Solifenacin Succinate) 10 Mg Tablet 1 Tab PO DAILY 30 04/12/21 Reported Trulicity (Dulaglutide) 1.5 Mg/0.5 Ml Pen.injctr 1.5 Mg SQ WEEKLY 04/12/21 Reported Prilosec Otc (Omeprazole Magnesium) 20 Mg Tablet.dr 40 Mg PO DAILY 04/12/21 Reported Plaquenil (Hydroxychloroquine Sulfate) 200 Mg Tablet 200 Mg PO BID 04/12/21 Reported Remeron (Mirtazapine) 15 Mg Tablet 7.5 Mg PO QHS 04/12/21 Reported Magnesium Oxide 400 Mg Tablet 1 Tab PO DAILY 04/12/21 Reported Lisinopril 20 Mg Tablet 1 Tab PO BID 04/12/21 Reported Ferrous Sulfate 325 Mg Tablet 1 Tab PO DAILY 04/12/21 Reported B-12 (Cyanocobalamin (Vitamin B-12)) 1,000 Mcg Tablet.er 1 Tab PO DAILY 30 04/12/21 Reported Children's Aspirin (Aspirin) 81 Mg Tab.chew 1 Tab PO DAILY 30 04/12/21 Reported Abilify (Aripiprazole) 5 Mg Tablet 5 Mg PO DAILY 04/12/21 Reported Fluoxetine Hcl 40 Mg Capsule 1 Cap PO DAILY 08/28/[address] angiogram reviewed. 1. No pulmonary embolism. 2. Small to moderate bilateral pleural effusions from March 2021 comparison with adjacent consolidation/compressive atelectasis. 3. Mild centrilobular emphysema. 4. Left lower lobe groundglass nodule measuring 1.2 cm diameter and right upper lobe 0.4 cm solid pulmonary nodule. Recommend follow-up noncontrast CT of the chest in 6 months to evaluate for persistence. Impression . 1. acute hypoxic respiratory failure secondary to ongoing interstitial edema/ acute diastolic HF/ On IVF. Clinically improved after discontinuation of IV fluids and extra IV Lasix. 2. Abnormal chest x-ray with persistent interstitial edema. 3. Echocardiogram with EF of 50% and mild to moderate MR. 4. Updated on COVID-19 vaccine. No clinical suspicion for pneumonia. 5. Hypertension.sub-optimal control. Likely contributing to diastolic heart failure. 6. Mild chronic kidney disease. 7. Abnormal CT chest. There is no evidence of pulmonary embolism. There is small bilateral pleural effusions with associated atelectasis. There is a 1.2 cm groundglass nodule in the left lower lobe and a tiny 4 mm nodule in the right upper lobe. Plan . RECOMMENDATIONS: 1. Patient has improved clinically. I would recommend withhold any further Lasix. 2. CT angiogram was reviewed. Pleural effusions do not need any further intervention. The groundglass nodule in the left lower lobe would need a follow-up CT chest in 6 months. Given her advanced age, I would not recommend any further invasive work-up. 3. Monitor renal function. 4. Follow Cardiology recommendations. 5. optimization of blood pressure. follow Cardiology recommendations. 6. Discussed with RN. JUAN WELCH MD May 02, 2021 11:29
--- NOTE | 2021-05-02 12:40 | DS ---
DATE OF DISCHARGE: 05/02/2021 HOSPITAL COURSE: The patient is a 80-year-old female patient who came from [facility] with a complaint of shortness of breath, hypoxia and severe back pain as well as constipation. She was seen by the Cardiology team and was diuresed very well and she was seen by the interventional radiologist as she had a CT scan done at the beginning of this month, he ordered a bone scan, which confirmed that she has T12 compression fracture and underwent the vertebroplasty successfully. As she continued to have hypoxia, I did order a CT angio of the chest and we rehydrated before and after the procedure and unfortunately, her creatinine has went up from 1.3 to 1.5 yesterday and continued to be a little bit under stabilized at that level this morning. Despite IV fluid, the patient herself seems to be fine, has no complaints. Her pain is actually much better controlled now after the vertebroplasty and she does have emphysematous changes. She has been a chronic smoker before and therefore, the patient will be discharged to [facility] to start the process of rehabilitation and to continue on all her other medications. PHYSICAL EXAMINATION: GENERAL: When I saw her this morning, she was resting slightly propped up in bed, in no apparent respiratory distress. She was pale, but no jaundiced, cyanosed. No thyromegaly. No jugular venous distention. No limb edema. VITAL SIGNS: Her heart rate was 65, blood pressure was 136/64, temperature 97.5, respiratory rate was 16 and oxygen saturation was 95% on 2 liters of oxygen. HEAD, EYES, EARS, NOSE, AND THROAT: Normocephalic, atraumatic. NECK: Supple. HEART: Normal first and second heart sounds. No gallop or murmur. CHEST: Shows central trachea, equal bilateral expansion, air entry, vesicular breath sounds. I could not really appreciate any crepitation or rhonchi. ABDOMEN: Scaphoid, soft, nontender. NEUROLOGIC: She is grossly intact. Her intake was 775, output was 1225. LABORATORY DATA: Her chemistry this morning showed a serum sodium 145, potassium 3.6, chloride 106, bicarbonate 31, anion gap of 8, BUN 20, creatinine 1.5. Estimated GFR was 53 mL per minute. Her glucose 137 and calcium was 8.6. As of yesterday, her white cell count was 4600, hemoglobin 8.6, hematocrit 28, MCV 80 and platelet count 318,000. DISCHARGE MEDICATIONS: The patient was discharged to [facility] to continue on Abilify 5 mg daily, aspirin 81 mg once a day, cyanocobalamin 1000 mcg tablet once a day, Trulicity 1.5 mg subcutaneous once a week, ferrous sulfate 325 mg daily, fluoxetine 40 mg daily, hydroxychloroquine sulfate 200 mg twice a day, magnesium oxide 400 mg daily, metformin 1000 mg twice a day, mirtazapine for Remeron 7.5 mg at bedtime, omeprazole for Prilosec 40 mg daily and solifenacin succinate, VESIcare 10 mg daily. I did discontinue her lisinopril. FINAL DISCHARGE DIAGNOSES: 1. Acute probably on chronic, likely diastolic congestive heart failure, improved. 2. Severe osteoporosis with compression fracture of T12 and a CT scan done at beginning of the March, Dr. Farris recommended a bone scan, which confirmed that she has T12 compression fracture, for which she underwent kyphoplasty successfully. Her back pain is much improved. 3. She has bilateral sacral insufficiency fractures, for which she underwent sacroplasty on her last admission or opioid-induced constipation, for which I did start her on magnesium citrate and received also Relistor with good effect. 4. Acute hypoxic respiratory failure, likely due to diastolic congestive heart failure as well as chronic obstructive pulmonary disease. She did have a CT angio which had ruled out pulmonary emboli; however, she has emphysematous changes, which confirmed the fact that she has been a heavy smoker for a long time, quit smoking in 2011. 5. Other medical problems include: A. Hypertension. B. Type 2 diabetes mellitus. C. Gastroesophageal reflux disease. D. Rheumatoid arthritis. E. Recurrent urinary tract infection. 6. The patient's creatinine has risen after she received contrast, so I continued on IV fluids. Her creatinine has stabilized, has not worsened, still at 1.5 mg/dL. The patient will be discharged to [facility], to continue the process of rehabilitation. NICOLAS/DOUGLAS/KRYSTLE DR: Bruce TID: [id number]
[2021-05-02] MEDS ORDERED: metFORMIN 500 MG TABLET PO SCH (17:00)
[2021-05-03] MEDS ORDERED: NON FORMULARY ITEM (Dulaglutide (Trulicity) 1.5 MG) SQ SCH (09:00)
== END 2021-05-02 12:30 | DRG 515 ==
LOC: ER 11:07 → 6 SOUTH 13:52 → ER 14:04
PROVIDERS: ADMIT Internal Medicine; ATTEND Internal Medicine
PROC: 0PS43ZZ Reposition Thoracic Vertebra, Percutaneous Approach (ICD-10-PCS; principal; 2021-04-28)
PROC: 0PU43JZ Supplement Thoracic Vertebra with Synthetic Substitute, Percutaneous Approach (ICD-10-PCS; 2021-04-28)
DX: M80.08XA Age-related osteoporosis with current pathological fracture, vertebra(e), initial encounter for fracture (principal); I50.43 Acute on chronic combined systolic (congestive) and diastolic (congestive) heart failure; J96.01 Acute respiratory failure with hypoxia; I13.0 Hypertensive heart and chronic kidney disease with heart failure and stage 1 through stage 4 chronic kidney disease, or unspecified chronic kidney disease; N17.9 Acute kidney failure, unspecified; I47.2 Ventricular tachycardia; J98.11 Atelectasis; N39.0 Urinary tract infection, site not specified; D64.9 Anemia, unspecified; E11.22 Type 2 diabetes mellitus with diabetic chronic kidney disease; E83.42 Hypomagnesemia; E87.6 Hypokalemia; E88.09 Other disorders of plasma-protein metabolism, not elsewhere classified; F17.200 Nicotine dependence, unspecified, uncomplicated; I48.91 Unspecified atrial fibrillation; J43.2 Centrilobular emphysema; K21.9 Gastro-esophageal reflux disease without esophagitis; K59.03 Drug induced constipation; M06.9 Rheumatoid arthritis, unspecified; N18.2 Chronic kidney disease, stage 2 (mild); T40.2X5A Adverse effect of other opioids, initial encounter; Z82.49 Family history of ischemic heart disease and other diseases of the circulatory system; Z87.440 Personal history of urinary (tract) infections; Z90.710 Acquired absence of both cervix and uterus; Z98.41 Cataract extraction status, right eye; Z98.42 Cataract extraction status, left eye; Z99.81 Dependence on supplemental oxygen; F32.A Depression, unspecified; Z20.822 Contact with and (suspected) exposure to COVID-19; Z88.8 Allergy status to other drugs, medicaments and biological substances
CPT/HCPCS: 22513; 36415; 71045; 71275; 78300; 80048; 80053; 80061; 82962; 83605; 83690; 83735; 83880; 84443; 84484; 85025; 85027; 85379; 85610; 85730; 87040; 87426; 87428; 93005; 94640; 96374; 96375; 99152; 99153; A9503; C1713; J0360; J1100; J1815; J1940; J2212; J2250; J2270; J3010; J3370; J3475; J3490; J7030; J7050; Q9966; Q9967; U0003; 97530-GO; 97530-GP; 97535-GO; 99285-25; G0378